=== PATIENT | male | born 1955 | race American Indian/Alaskan Native ===

== ENCOUNTER 2016-02-16 08:27 | Outpatient (CLI) | payer MEDICARE ==
[2016-02-16] MEDS ORDERED: XYLOCAINE TOPICAL 4% TP ONE ×2 (09:22→10:47)
== END 2016-02-16 08:28 | disposition home or self-care (01) ==
LOC: WOUND 08:27
PROVIDERS: ATTEND Podiatrist
DX: I70.243 Atherosclerosis of native arteries of left leg with ulceration of ankle (principal); L97.321 Non-pressure chronic ulcer of left ankle limited to breakdown of skin; I10 Essential (primary) hypertension; N18.6 End stage renal disease; E11.9 Type 2 diabetes mellitus without complications; E78.5 Hyperlipidemia, unspecified; E11.51 Type 2 diabetes mellitus with diabetic peripheral angiopathy without gangrene; M19.90 Unspecified osteoarthritis, unspecified site; Z87.891 Personal history of nicotine dependence
CPT/HCPCS: 11042; G0463

== ENCOUNTER 2016-02-19 12:41 | Outpatient (CLI) | payer MEDICARE ==
--- NOTE | 2016-02-19 13:39 | XRay Report ---
Left foot 3 views. Findings: There are no fractures or other acute findings. Extensive vascular ossifications are noted. Impression: No acute findings.
--- NOTE | 2016-02-19 15:26 | XRay Report ---
LEFT CALCANEUS, 2 VIEWS: HISTORY: Left foot pain. FINDINGS: Bone mineralization is within normal limits. No calcaneal fracture, bony destruction or bone lesion is appreciated. A moderate plantar spur is identified. Vascular calcifications are noted consistent with diabetes or peripheral vascular disease. IMPRESSION: Plantar spur.
== END 2016-02-19 12:42 | disposition home or self-care (01) ==
LOC: XRAY 12:41
PROVIDERS: ATTEND Internal Medicine
DX: M79.672 Pain in left foot (principal); M79.671 Pain in right foot

== ENCOUNTER 2016-02-27 13:00 | Outpatient (CLI) | payer MEDICARE | END 2016-02-27 13:01 | disposition home or self-care (01) | LOC: XRAY 13:00 | PROVIDERS: ATTEND Internal Medicine | DX: I50.9 Heart failure, unspecified (principal); R06.02 Shortness of breath | CPT/HCPCS: 71020 ==

== ENCOUNTER 2016-03-01 08:16 | Outpatient (CLI) | payer MEDICARE ==
[2016-03-01] MEDS ORDERED: XYLOCAINE TOPICAL 2% ONE (08:30)
[2016-03-01] MEDS ORDERED: XYLOCAINE TOPICAL 2% TP ONE (08:52)
== END 2016-03-01 08:17 | disposition home or self-care (01) ==
LOC: WOUND 08:16
PROVIDERS: ATTEND Podiatrist
DX: E11.621 Type 2 diabetes mellitus with foot ulcer (principal); L97.522 Non-pressure chronic ulcer of other part of left foot with fat layer exposed; L97.322 Non-pressure chronic ulcer of left ankle with fat layer exposed; L97.422 Non-pressure chronic ulcer of left heel and midfoot with fat layer exposed; L97.922 Non-pressure chronic ulcer of unspecified part of left lower leg with fat layer exposed; I70.243 Atherosclerosis of native arteries of left leg with ulceration of ankle; E10.52 Type 1 diabetes mellitus with diabetic peripheral angiopathy with gangrene; N18.6 End stage renal disease; I10 Essential (primary) hypertension; E78.5 Hyperlipidemia, unspecified; Z87.891 Personal history of nicotine dependence

== ENCOUNTER 2016-03-13 13:51 | Outpatient (CLI) | payer MEDICARE | END 2016-03-13 13:52 | disposition home or self-care (01) | LOC: WOUND 13:51 | PROVIDERS: ATTEND Internal Medicine | DX: E11.621 Type 2 diabetes mellitus with foot ulcer (principal); L97.521 Non-pressure chronic ulcer of other part of left foot limited to breakdown of skin; L97.421 Non-pressure chronic ulcer of left heel and midfoot limited to breakdown of skin; E11.622 Type 2 diabetes mellitus with other skin ulcer; L97.321 Non-pressure chronic ulcer of left ankle limited to breakdown of skin; L97.821 Non-pressure chronic ulcer of other part of left lower leg limited to breakdown of skin; I70.243 Atherosclerosis of native arteries of left leg with ulceration of ankle; E11.40 Type 2 diabetes mellitus with diabetic neuropathy, unspecified; L03.116 Cellulitis of left lower limb; E11.52 Type 2 diabetes mellitus with diabetic peripheral angiopathy with gangrene; E11.22 Type 2 diabetes mellitus with diabetic chronic kidney disease; I12.0 Hypertensive chronic kidney disease with stage 5 chronic kidney disease or end stage renal disease; N18.6 End stage renal disease; E78.2 Mixed hyperlipidemia; Z87.891 Personal history of nicotine dependence | CPT/HCPCS: 82962; G0277; 99183 ==

== ENCOUNTER 2016-03-14 12:59 | Outpatient (CLI) | payer MEDICARE | END 2016-03-14 13:00 | disposition home or self-care (01) | LOC: WOUND 12:59 | PROVIDERS: ATTEND Internal Medicine | DX: E11.621 Type 2 diabetes mellitus with foot ulcer (principal); L97.521 Non-pressure chronic ulcer of other part of left foot limited to breakdown of skin; L97.421 Non-pressure chronic ulcer of left heel and midfoot limited to breakdown of skin; E11.622 Type 2 diabetes mellitus with other skin ulcer; L97.321 Non-pressure chronic ulcer of left ankle limited to breakdown of skin; L97.821 Non-pressure chronic ulcer of other part of left lower leg limited to breakdown of skin; E11.40 Type 2 diabetes mellitus with diabetic neuropathy, unspecified; E11.52 Type 2 diabetes mellitus with diabetic peripheral angiopathy with gangrene; L03.116 Cellulitis of left lower limb; E11.22 Type 2 diabetes mellitus with diabetic chronic kidney disease; I12.0 Hypertensive chronic kidney disease with stage 5 chronic kidney disease or end stage renal disease; N18.6 End stage renal disease; E78.5 Hyperlipidemia, unspecified; I73.9 Peripheral vascular disease, unspecified; Z87.891 Personal history of nicotine dependence | CPT/HCPCS: 82962; G0277; 99183 ==

== ENCOUNTER 2016-03-15 12:57 | Outpatient (CLI) | payer MEDICARE | END 2016-03-15 12:58 | disposition home or self-care (01) | LOC: WOUND 12:57 | PROVIDERS: ATTEND Podiatrist | DX: E11.621 Type 2 diabetes mellitus with foot ulcer (principal); L97.321 Non-pressure chronic ulcer of left ankle limited to breakdown of skin; L97.421 Non-pressure chronic ulcer of left heel and midfoot limited to breakdown of skin; L97.821 Non-pressure chronic ulcer of other part of left lower leg limited to breakdown of skin; L97.521 Non-pressure chronic ulcer of other part of left foot limited to breakdown of skin; I70.243 Atherosclerosis of native arteries of left leg with ulceration of ankle; E11.40 Type 2 diabetes mellitus with diabetic neuropathy, unspecified; E11.52 Type 2 diabetes mellitus with diabetic peripheral angiopathy with gangrene; L03.116 Cellulitis of left lower limb; E11.22 Type 2 diabetes mellitus with diabetic chronic kidney disease; I12.0 Hypertensive chronic kidney disease with stage 5 chronic kidney disease or end stage renal disease; N18.6 End stage renal disease; E78.5 Hyperlipidemia, unspecified; Z87.891 Personal history of nicotine dependence | CPT/HCPCS: G0277 ×2; 82962; 99183 ==

== ENCOUNTER 2016-03-19 12:31 | Outpatient (CLI) | payer MEDICARE | END 2016-03-19 12:32 | disposition home or self-care (01) | LOC: WOUND 12:31 | PROVIDERS: ATTEND Internal Medicine | DX: E11.621 Type 2 diabetes mellitus with foot ulcer (principal); L97.422 Non-pressure chronic ulcer of left heel and midfoot with fat layer exposed; L97.822 Non-pressure chronic ulcer of other part of left lower leg with fat layer exposed; L97.523 Non-pressure chronic ulcer of other part of left foot with necrosis of muscle; I70.243 Atherosclerosis of native arteries of left leg with ulceration of ankle; L97.322 Non-pressure chronic ulcer of left ankle with fat layer exposed; E11.51 Type 2 diabetes mellitus with diabetic peripheral angiopathy without gangrene; E11.22 Type 2 diabetes mellitus with diabetic chronic kidney disease; I12.0 Hypertensive chronic kidney disease with stage 5 chronic kidney disease or end stage renal disease; N18.6 End stage renal disease; E78.5 Hyperlipidemia, unspecified; Z87.891 Personal history of nicotine dependence; Z89.511 Acquired absence of right leg below knee | CPT/HCPCS: G0277 ×2; 82962; 99183 ==

== ENCOUNTER 2016-03-20 12:54 | Outpatient (CLI) | payer MEDICARE | END 2016-03-20 12:55 | disposition home or self-care (01) | LOC: WOUND 12:54 | PROVIDERS: ATTEND Internal Medicine | DX: I70.243 Atherosclerosis of native arteries of left leg with ulceration of ankle (principal); E11.621 Type 2 diabetes mellitus with foot ulcer; L97.322 Non-pressure chronic ulcer of left ankle with fat layer exposed; L97.422 Non-pressure chronic ulcer of left heel and midfoot with fat layer exposed; L97.922 Non-pressure chronic ulcer of unspecified part of left lower leg with fat layer exposed; L97.523 Non-pressure chronic ulcer of other part of left foot with necrosis of muscle; L97.522 Non-pressure chronic ulcer of other part of left foot with fat layer exposed; E11.52 Type 2 diabetes mellitus with diabetic peripheral angiopathy with gangrene; E11.40 Type 2 diabetes mellitus with diabetic neuropathy, unspecified; E11.22 Type 2 diabetes mellitus with diabetic chronic kidney disease; I12.0 Hypertensive chronic kidney disease with stage 5 chronic kidney disease or end stage renal disease; N18.6 End stage renal disease; E78.5 Hyperlipidemia, unspecified; Z87.891 Personal history of nicotine dependence; Z89.511 Acquired absence of right leg below knee | CPT/HCPCS: 82962; G0277; 99183 ==

== ENCOUNTER 2016-03-21 13:16 | Outpatient (CLI) | payer MEDICARE | END 2016-03-21 13:17 | disposition home or self-care (01) | LOC: WOUND 13:16 | PROVIDERS: ATTEND Internal Medicine | DX: E11.621 Type 2 diabetes mellitus with foot ulcer (principal); I70.243 Atherosclerosis of native arteries of left leg with ulceration of ankle; L97.322 Non-pressure chronic ulcer of left ankle with fat layer exposed; L97.822 Non-pressure chronic ulcer of other part of left lower leg with fat layer exposed; L97.422 Non-pressure chronic ulcer of left heel and midfoot with fat layer exposed; L97.523 Non-pressure chronic ulcer of other part of left foot with necrosis of muscle; L97.522 Non-pressure chronic ulcer of other part of left foot with fat layer exposed; E11.52 Type 2 diabetes mellitus with diabetic peripheral angiopathy with gangrene; E78.5 Hyperlipidemia, unspecified; E11.40 Type 2 diabetes mellitus with diabetic neuropathy, unspecified; E11.22 Type 2 diabetes mellitus with diabetic chronic kidney disease; I12.0 Hypertensive chronic kidney disease with stage 5 chronic kidney disease or end stage renal disease; N18.6 End stage renal disease; Z99.2 Dependence on renal dialysis; M19.90 Unspecified osteoarthritis, unspecified site; Z89.511 Acquired absence of right leg below knee; Z87.891 Personal history of nicotine dependence | CPT/HCPCS: 82962; G0277; 99183 ==

== ENCOUNTER 2016-03-22 11:13 | Outpatient (CLI) | payer MEDICARE ==
[2016-03-22] MEDS ORDERED: XYLOCAINE TOPICAL 4% TP ONE (11:25)
[2016-03-22] MEDS ORDERED: SANTYL TP ONE (12:54)
== END 2016-03-22 11:14 | disposition home or self-care (01) ==
LOC: WOUND 11:13
PROVIDERS: ATTEND Podiatrist
DX: E11.621 Type 2 diabetes mellitus with foot ulcer (principal); L97.421 Non-pressure chronic ulcer of left heel and midfoot limited to breakdown of skin; L97.521 Non-pressure chronic ulcer of other part of left foot limited to breakdown of skin; E11.622 Type 2 diabetes mellitus with other skin ulcer; L97.321 Non-pressure chronic ulcer of left ankle limited to breakdown of skin; L03.116 Cellulitis of left lower limb; I70.243 Atherosclerosis of native arteries of left leg with ulceration of ankle; E11.22 Type 2 diabetes mellitus with diabetic chronic kidney disease; I12.0 Hypertensive chronic kidney disease with stage 5 chronic kidney disease or end stage renal disease; N18.6 End stage renal disease; E78.2 Mixed hyperlipidemia; I73.9 Peripheral vascular disease, unspecified; E11.42 Type 2 diabetes mellitus with diabetic polyneuropathy; M19.90 Unspecified osteoarthritis, unspecified site; Z87.891 Personal history of nicotine dependence
CPT/HCPCS: 11042; G0277; 99183

== ENCOUNTER 2016-03-25 13:16 | Outpatient (CLI) | payer MEDICARE | END 2016-03-25 13:17 | disposition home or self-care (01) | LOC: WOUND 13:16 | PROVIDERS: ATTEND Internal Medicine | DX: E11.621 Type 2 diabetes mellitus with foot ulcer (principal); L97.322 Non-pressure chronic ulcer of left ankle with fat layer exposed; L97.422 Non-pressure chronic ulcer of left heel and midfoot with fat layer exposed; I70.243 Atherosclerosis of native arteries of left leg with ulceration of ankle; L97.922 Non-pressure chronic ulcer of unspecified part of left lower leg with fat layer exposed; L97.523 Non-pressure chronic ulcer of other part of left foot with necrosis of muscle; L97.522 Non-pressure chronic ulcer of other part of left foot with fat layer exposed; E11.40 Type 2 diabetes mellitus with diabetic neuropathy, unspecified; E11.51 Type 2 diabetes mellitus with diabetic peripheral angiopathy without gangrene; E11.22 Type 2 diabetes mellitus with diabetic chronic kidney disease; I12.0 Hypertensive chronic kidney disease with stage 5 chronic kidney disease or end stage renal disease; N18.6 End stage renal disease; Z99.2 Dependence on renal dialysis; E78.5 Hyperlipidemia, unspecified; M19.90 Unspecified osteoarthritis, unspecified site; Z87.891 Personal history of nicotine dependence | CPT/HCPCS: 82962; G0277; 99183 ==

== ENCOUNTER 2016-03-26 12:40 | Outpatient (CLI) | payer MEDICARE | END 2016-03-26 12:41 | disposition home or self-care (01) | LOC: WOUND 12:40 | PROVIDERS: ATTEND Podiatrist | DX: E11.621 Type 2 diabetes mellitus with foot ulcer (principal); L97.521 Non-pressure chronic ulcer of other part of left foot limited to breakdown of skin; L97.421 Non-pressure chronic ulcer of left heel and midfoot limited to breakdown of skin; E11.622 Type 2 diabetes mellitus with other skin ulcer; L97.821 Non-pressure chronic ulcer of other part of left lower leg limited to breakdown of skin; I70.243 Atherosclerosis of native arteries of left leg with ulceration of ankle; L03.116 Cellulitis of left lower limb; E11.22 Type 2 diabetes mellitus with diabetic chronic kidney disease; I12.0 Hypertensive chronic kidney disease with stage 5 chronic kidney disease or end stage renal disease; N18.6 End stage renal disease; E78.2 Mixed hyperlipidemia; I73.9 Peripheral vascular disease, unspecified; E11.40 Type 2 diabetes mellitus with diabetic neuropathy, unspecified; M19.90 Unspecified osteoarthritis, unspecified site; Z87.891 Personal history of nicotine dependence | CPT/HCPCS: 82962; G0277; G0463; 99183; 99213 ==

== ENCOUNTER 2016-03-27 13:07 | Outpatient (CLI) | payer MEDICARE | END 2016-03-27 13:08 | disposition home or self-care (01) | LOC: WOUND 13:07 | PROVIDERS: ATTEND Internal Medicine | DX: E11.621 Type 2 diabetes mellitus with foot ulcer (principal); I70.243 Atherosclerosis of native arteries of left leg with ulceration of ankle; L97.322 Non-pressure chronic ulcer of left ankle with fat layer exposed; L97.422 Non-pressure chronic ulcer of left heel and midfoot with fat layer exposed; L97.523 Non-pressure chronic ulcer of other part of left foot with necrosis of muscle; L97.522 Non-pressure chronic ulcer of other part of left foot with fat layer exposed; L97.822 Non-pressure chronic ulcer of other part of left lower leg with fat layer exposed; E11.40 Type 2 diabetes mellitus with diabetic neuropathy, unspecified; E11.52 Type 2 diabetes mellitus with diabetic peripheral angiopathy with gangrene; E11.22 Type 2 diabetes mellitus with diabetic chronic kidney disease; I12.0 Hypertensive chronic kidney disease with stage 5 chronic kidney disease or end stage renal disease; N18.6 End stage renal disease; E78.5 Hyperlipidemia, unspecified; E11.51 Type 2 diabetes mellitus with diabetic peripheral angiopathy without gangrene; M19.90 Unspecified osteoarthritis, unspecified site; Z89.511 Acquired absence of right leg below knee; Z99.2 Dependence on renal dialysis; Z87.891 Personal history of nicotine dependence | CPT/HCPCS: G0277 ×2; 82962; 99183 ==

== ENCOUNTER 2016-03-28 12:30 | Outpatient (CLI) | payer MEDICARE | END 2016-03-28 12:31 | disposition home or self-care (01) | LOC: WOUND 12:30 | PROVIDERS: ATTEND Nurse Practitioner | DX: E11.621 Type 2 diabetes mellitus with foot ulcer (principal); L97.422 Non-pressure chronic ulcer of left heel and midfoot with fat layer exposed; L97.822 Non-pressure chronic ulcer of other part of left lower leg with fat layer exposed; L97.523 Non-pressure chronic ulcer of other part of left foot with necrosis of muscle; L97.522 Non-pressure chronic ulcer of other part of left foot with fat layer exposed; I70.243 Atherosclerosis of native arteries of left leg with ulceration of ankle; L97.322 Non-pressure chronic ulcer of left ankle with fat layer exposed; E11.22 Type 2 diabetes mellitus with diabetic chronic kidney disease; I12.0 Hypertensive chronic kidney disease with stage 5 chronic kidney disease or end stage renal disease; N18.6 End stage renal disease; E78.5 Hyperlipidemia, unspecified; E11.51 Type 2 diabetes mellitus with diabetic peripheral angiopathy without gangrene; E11.40 Type 2 diabetes mellitus with diabetic neuropathy, unspecified; M19.90 Unspecified osteoarthritis, unspecified site; Z87.891 Personal history of nicotine dependence; Z89.511 Acquired absence of right leg below knee | CPT/HCPCS: 82962; G0277; 99183 ==

== ENCOUNTER 2016-03-29 11:32 | Outpatient (CLI) | payer MEDICARE ==
[2016-03-29] MEDS ORDERED: SANTYL TP ONE ×2 (12:52→15:00)
[2016-03-29] MEDS ORDERED: XYLOCAINE TOPICAL 4% TP ONE (14:56)
== END 2016-03-29 11:33 | disposition home or self-care (01) ==
LOC: WOUND 11:32
PROVIDERS: ATTEND Podiatrist
DX: E11.621 Type 2 diabetes mellitus with foot ulcer (principal); L97.521 Non-pressure chronic ulcer of other part of left foot limited to breakdown of skin; E11.622 Type 2 diabetes mellitus with other skin ulcer; L97.321 Non-pressure chronic ulcer of left ankle limited to breakdown of skin; L97.421 Non-pressure chronic ulcer of left heel and midfoot limited to breakdown of skin; L97.821 Non-pressure chronic ulcer of other part of left lower leg limited to breakdown of skin; I70.243 Atherosclerosis of native arteries of left leg with ulceration of ankle; L03.116 Cellulitis of left lower limb; E11.22 Type 2 diabetes mellitus with diabetic chronic kidney disease; I12.0 Hypertensive chronic kidney disease with stage 5 chronic kidney disease or end stage renal disease; N18.6 End stage renal disease; E78.2 Mixed hyperlipidemia; I73.9 Peripheral vascular disease, unspecified; M19.90 Unspecified osteoarthritis, unspecified site; E11.40 Type 2 diabetes mellitus with diabetic neuropathy, unspecified; Z87.891 Personal history of nicotine dependence
CPT/HCPCS: 11042; 11045; 82962; G0277; 99183

== ENCOUNTER 2016-04-01 14:35 | Outpatient (CLI) | payer MEDICARE | END 2016-04-01 14:36 | disposition home or self-care (01) | LOC: WOUND 14:35 | PROVIDERS: ATTEND Internal Medicine | DX: E11.621 Type 2 diabetes mellitus with foot ulcer (principal); L97.521 Non-pressure chronic ulcer of other part of left foot limited to breakdown of skin; L97.421 Non-pressure chronic ulcer of left heel and midfoot limited to breakdown of skin; E11.622 Type 2 diabetes mellitus with other skin ulcer; L97.321 Non-pressure chronic ulcer of left ankle limited to breakdown of skin; L97.821 Non-pressure chronic ulcer of other part of left lower leg limited to breakdown of skin; I70.243 Atherosclerosis of native arteries of left leg with ulceration of ankle; L03.116 Cellulitis of left lower limb; E11.22 Type 2 diabetes mellitus with diabetic chronic kidney disease; I12.0 Hypertensive chronic kidney disease with stage 5 chronic kidney disease or end stage renal disease; N18.6 End stage renal disease; E78.2 Mixed hyperlipidemia; I73.9 Peripheral vascular disease, unspecified; M19.90 Unspecified osteoarthritis, unspecified site; E11.40 Type 2 diabetes mellitus with diabetic neuropathy, unspecified; Z87.891 Personal history of nicotine dependence | CPT/HCPCS: 82962; G0277; 99183 ==

== ENCOUNTER 2016-04-02 12:53 | Outpatient (CLI) | payer MEDICARE ==
[2016-04-02] MEDS ORDERED: SANTYL TP ONE (15:02)
[2016-04-02] MEDS ORDERED: SANTYL TP SCH (16:00)
== END 2016-04-02 12:54 | disposition home or self-care (01) ==
LOC: WOUND 12:53
PROVIDERS: ATTEND Podiatrist
DX: E11.621 Type 2 diabetes mellitus with foot ulcer (principal); L97.322 Non-pressure chronic ulcer of left ankle with fat layer exposed; L97.422 Non-pressure chronic ulcer of left heel and midfoot with fat layer exposed; L97.523 Non-pressure chronic ulcer of other part of left foot with necrosis of muscle; E11.40 Type 2 diabetes mellitus with diabetic neuropathy, unspecified; E11.52 Type 2 diabetes mellitus with diabetic peripheral angiopathy with gangrene; L97.822 Non-pressure chronic ulcer of other part of left lower leg with fat layer exposed; I70.243 Atherosclerosis of native arteries of left leg with ulceration of ankle; E11.22 Type 2 diabetes mellitus with diabetic chronic kidney disease; I12.0 Hypertensive chronic kidney disease with stage 5 chronic kidney disease or end stage renal disease; N18.6 End stage renal disease; E78.5 Hyperlipidemia, unspecified; E11.51 Type 2 diabetes mellitus with diabetic peripheral angiopathy without gangrene; M19.90 Unspecified osteoarthritis, unspecified site; Z87.891 Personal history of nicotine dependence; Z89.511 Acquired absence of right leg below knee; Z99.2 Dependence on renal dialysis
CPT/HCPCS: 82962; G0277; G0463; 99183; 99212

== ENCOUNTER 2016-04-15 19:39 | Inpatient (IN) | payer MEDICARE ==
[2016-04-15] MEDS ORDERED: D50W (25GM) IV PRN (20:08)
[2016-04-15] MEDS ORDERED: SENOKOT PO PRN (20:08)
[2016-04-15] MEDS: ROXICODONE PO SCH (21:03)
[2016-04-15] MEDS: ALDACTONE PO SCH (21:09)
[2016-04-15] MEDS: CATAPRES PO SCH (21:10)
[2016-04-15] MEDS: NOVOLOG SUB-Q SCH (23:05)
[2016-04-15] MEDS: APRESOLINE PO SCH (23:53)
[2016-04-15] MEDS: COREG PO SCH (23:54)
[2016-04-16 05:18] LABS: Basophils % (Auto) 0.9 % (0.0-1.8); Eosinophils % (Auto) 2.3 % (0.0-4.3); Hematocrit 25.9 % (35.5-45.6); Hemoglobin 8.2 gm/dl (11.8-15.2); Mean Corpuscular HGB Conc 32 % (32-34); Mean Corpuscular Hemoglobin 28 pg (28-32); Mean Corpuscular Volume 88 fl (84-94); Platelet Count 359 K/mm3 (140-440); Red Blood Count 2.93 M/mm3 (3.65-5.03); White Blood Count 16.3 K/mm3 (4.5-11.0)
[2016-04-16 05:20] LABS: Red Cell Distribution Width 23.5 % (13.2-15.2)
[2016-04-16 05:43] LABS: Albumin 3.2 g/dL (3.9-5); Albumin/Globulin Ratio 0.9 %; Alkaline Phosphatase 51 units/L (35-129); Anion Gap 24 mmol/L; BUN/Creatinine Ratio 7.53; Bilirubin,Total 0.2 mg/dL (0.1-1.2); Blood Urea Nitrogen 61 mg/dL (9-20); Calcium 10.7 mg/dL (8.4-10.2); Carbon Dioxide 22 mmol/L (22-30); Chloride 94.5 mmol/L (98-107); Glucose 106 mg/dL (75-100); Potassium 4.7 mmol/L (3.6-5.0); Sodium 136 mmol/L (137-145); Total Protein 6.9 g/dL (6.3-8.2)
[2016-04-16 05:52] LABS: Alanine Aminotransferase < 5 units/L (7-56)
[2016-04-16] MEDS ORDERED: SENSIPAR PO SCH ×2 (08:00→10:56)
[2016-04-16] MEDS: CATAPRES PO SCH ×2 (08:20→23:41)
[2016-04-16] MEDS: APRESOLINE PO SCH ×2 (08:20→23:41)
[2016-04-16] MEDS: COREG PO SCH ×2 (08:21→23:41)
[2016-04-16] MEDS: ALDACTONE PO SCH ×2 (08:21→23:40)
[2016-04-16] MEDS: ROXICODONE PO SCH (09:25)
[2016-04-16] MEDS: TYLENOL PO PRN ×2 (09:26→20:40)
--- NOTE | 2016-04-16 09:43 | Progress Note ---
Assessment and Plan 1. DM: Continue with insulin therapy, Consistent 2000 ADA diet 2. Left BKA; POD # 2: Doing well with occasional phantom pain. Prior left BKA. continue with PT/OT 3. ESRD on HD on T, , and Fri. Nephrology following 4. PAV: 5. DVT ppx with lovenox and GI with pepcid Subjective Date of service: 04/16/16 Principal diagnosis: DM, Left BKA Interval history: NO new complaint Objective - Constitutional Vitals: Vital Signs - 12hr 04/15/16 04/16/16 04/16/16 23:54 00:00 08:20 Pulse Rate 90 112 H Pulse Rate [ 90 Left Brachial] Blood Pressure 140/74 116/74 Blood Pressure 140/74 [Left Arm] 04/16/16 08:21 Pulse Rate 112 H Pulse Rate [ Left Brachial] Blood Pressure 116/74 Blood Pressure [Left Arm] General appearance: Present: no acute distress, well-nourished - EENT Eyes: PERRL, EOM intact ENT: hearing intact, clear oral mucosa Ears: bilateral: normal - Neck Neck: supple, normal ROM - Respiratory Respiratory effort: normal Respiratory: bilateral: CTA - Breasts Breasts: normal - Cardiovascular Rhythm: regular Heart Sounds: Present: S1 & S2. Absent: gallop, rub Extremities: pulses intact, No edema Extremity abnormal: other (recent right BKA and prior right BKA) - Gastrointestinal General gastrointestinal: Present: soft, non-tender, non-distended, normal bowel sounds - Genitourinary Male genitourinary: normal - Integumentary Integumentary: clear, warm, dry - Musculoskeletal Musculoskeletal: 1, strength equal bilaterally - Neurologic Neurologic: moves all extremities - Psychiatric Psychiatric: memory intact, appropriate mood/affect, intact judgment & insight - Labs CBC & Chem 7: 04/16/16 04:48 04/16/16 04:48 Labs: Abnormal lab results 04/15/16 04/16/16 04/16/16 Range/Units 22:22 04:48 04:48 WBC 16.3 H (4.5-11.0) K/mm3 RBC 2.93 L (3.65-5.03) M/mm3 Hgb 8.2 L (11.8-15.2) gm/dl Hct 25.9 L (35.5-45.6) % RDW 23.5 H (13.2-15.2) % Lymph % (Auto) 9.5 L (13.4-35.0) % Victoria % (Auto) 15.7 H (0.0-7.3) % Victoria # 2.6 H (0.0-0.8) K/mm3 Seg Neutrophils % 71.6 H (40.0-70.0) % Seg Neutrophils # 11.6 H (1.8-7.7) K/mm3 Chloride 94.5 L (98-107) mmol/L BUN 61 H (9-20) mg/dL Creatinine 8.1 H (0.8-1.5) mg/dL Glucose 106 H (75-100) mg/dL POC Glucose 115 H (70-105) Calcium 10.7 H (8.4-10.2) mg/dL ALT < 5 L (7-56) units/L Albumin 3.2 L (3.9-5) g/dL
--- NOTE | 2016-04-16 10:04 | History and Physical Report ---
History of Present Illness Date: 04/16/16 Referring Facility: [facility] Date of admission: 04/15/16 19:39 Chief Complaint: left BKA History of present illness: POST ADMISSION PHYSICIAN EVALUATION ONSET DATE: 04/12/2016 IMPAIRMENT GROUP CODE: 05.4 ETIOLOGIC DIAGNOSIS: left BKA secondary to atherosclerotic PVD with gangrene STATUS CHANGES SINCE PREADMISSION SCREENING: PAS has been reviewed. In comparison, leukocytosis (14.9-->16.3) and acute on chronic anemia (8.8/27.7--> 8.2/25.9) slightly worsened; INR improving (3.89-->3.30). Pain controlled on current regimen. Pt able to participate in therapies on today, however, remains with functional deficits. Pt remains an appropriate candidate for IRU admission. PREVIOUS FUNCTIONAL STATUS: Independent with ADLs and transfers; Rosa for gait CURRENT FUNCTIONAL STATUS: per PAS, SBA/CARDONA-Nicolle for ADLs; modA for transfers; therapy evaluations pending for this AM HPI 60 y.o. male with previous right BKA, admitted to [facility] for left BKA due to PVD with LLE gangrene. Pt reports nonhealing diabetic foot ulcers; failed revascularizations, hyperbarics, outpt wound care. Post-op course notable for supratherapeutic INR, acute on chronic anemia, leukocytosis. Pt noted to have new functional deficits as he is now a bilateral amputee. Pt is now admitted for aggressive therapies and ongoing medical management. Past History Past Medical History: diabetes (retinopathy and peripheral neuropathy), ESRD ( converted from PD to HD), hypertension, hyperlipidemia, PVD Past Surgical History: arthroscopy (left knee), Other (multiple resvascularization procedures; now bilateral below knee amputations; PD catheter placement) Social history: lives with family (girlfriend). denies: smoking, alcohol abuse Family history: CAD, cancer (breast), diabetes, hypertension Medications and Allergies Allergies Allergy/AdvReac Type Severity Reaction Status Date / Time No Known Allergies Allergy Unverified 11/05/12 18:40 Home Medications Medication Instructions Recorded Confirmed Last Taken Type Cinacalcet [Sensipar] 30 mg PO QDAY #30 tablet 10/24/15 04/12/16 04/11/16 Rx Sevelamer Carbonate [Renvela] 800 mg PO TIDWM #90 tablet 10/24/15 04/12/1604/11 Rx Warfarin [Coumadin] 3 mg PO DAILY@1700 #30 tablet 10/24/15 04/12/16 04/09/16 Rx hydrALAZINE [Apresoline TAB] 100 mg PO BID #60 tab 10/24/15 04/12/16 04/11/16 23 :55 Rx oxyCODONE [Roxicodone TAB] 5 mg PO Q6H PRN #60 tablet 11/23/15 04/12/16 Rx Insulin NPH/Regular [NovoLIN 70/30] 10 unit SUB-Q QAM@1000 units 01/10/1604/1204/11/16 08:00 Rx Insulin NPH/Regular [NovoLIN 70/30] 10 unit SUB-Q QPMDIAB units 01/10/1604/11/16 23:45 Rx 5 UNITS Carvedilol [Coreg] 25 mg PO BID 04/10/16 04/12/16 04/11/16 23:55 History Spironolactone 50 mg PO BID 04/12/16 04/12/16 04/11/16 History cloNIDine [Catapres] 0.1 mg PO BID 04/12/16 04/12/16 04/11/16 23:55 History Active Meds: Active Medications Acetaminophen (Tylenol) 650 mg PO Q4H PRN PRN Reason: Pain MILD(1-3)/Fever >100.5/PAZ Last Admin: 04/16/16 09:26 Dose: 650 mg Carvedilol (Coreg) 25 mg PO BID [facility] Last Admin: 04/16/16 08:21 Dose: Not Given Cinacalcet (Sensipar) 30 mg PO QDAY [facility] Clonidine HCl (Catapres) 0.1 mg PO BID [facility] Last Admin: 04/16/16 08:20 Dose: Not Given Dextrose (D50w (25gm)) 50 ml IV PRN PRN PRN Reason: Hypoglycemia Hydralazine HCl (Apresoline) 100 mg PO BID [facility] Last Admin: 04/16/16 08:20 Dose: Not Given Insulin Aspart (Novolog) 0 units SUB-Q ACHS [facility] PRN Reason: Protocol Last Admin: 04/15/16 23:05 Dose: Not Given Insulin Human Isoph/Insulin Regular (Novolin 70/30) 10 unit SUB-Q QAM@1000 [facility] Insulin Human Isoph/Insulin Regular (Novolin 70/30) 10 unit SUB-Q QPMDIAB [facility] Oxycodone HCl (Roxicodone) 10 mg PO BID [facility] Last Admin: 04/16/16 09:25 Dose: 10 mg Senna (Senokot) 8.6 mg PO Q12H PRN PRN Reason: Laxative Effect Sevelamer Carbonate (Renvela) 800 mg PO TIDWM [facility] Spironolactone (Aldactone) 50 mg PO BID [facility] Last Admin: 04/16/16 08:21 Dose: Not Given Review of Systems All systems: negative Ears, nose, mouth and throat: no headache Cardiovascular: no chest pain Respiratory: no cough Gastrointestinal: no nausea, no vomiting, no constipation Neurological: other (post-op pain at left residual limb) Exam - Constitutional Vitals: Vital Signs - 12hr 04/15/16 04/16/16 04/16/16 23:54 00:00 08:20 Pulse Rate 90 112 H Pulse Rate [ 90 Left Brachial] Blood Pressure 140/74 116/74 Blood Pressure 140/74 [Left Arm] 04/16/16 08:21 Pulse Rate 112 H Pulse Rate [ Left Brachial] Blood Pressure 116/74 Blood Pressure [Left Arm] General appearance: no acute distress, other (sitting up in WC) - EENT Eyes: EOM intact ENT: hearing intact - Neck Neck: supple, normal ROM - Respiratory Respiratory effort: normal Respiratory: bilateral: CTA - Cardiovascular Rhythm: irregularly irregular - Extremities Extremity abnormal: other (MAGNOLIA and knee immobilizer to LLE) - Gastrointestinal General gastrointestinal: Present: soft, non-tender, non-distended, normal bowel sounds - Musculoskeletal Musculoskeletal: left sided weakness (limited hip flexion due to pain) - Neurologic Neurologic: CNII-XII intact - Psychiatric Psychiatric: intact judgment & insight, memory intact, cooperative (flat affect) - Allied health notes FIMS assesment as documented by PT/OT/ST: Social interaction/Memory/Problem solving Social Interaction FIM Score 7. Complete Mellette (Interacts appropriately. Controls temper.) Memory FIM Score 7. Complete [place] (Remembers people and routines.) Problem Solving FIM Score 7. Complete [place] (Solves complex problems. Self corrects.) Eating Eating FIM Score 7. Complete [place] (Cuts meat, opens containers, regular diet.) - Labs CBC & Chem 7: 04/16/16 04:48 04/16/16 04:48 Labs: Laboratory Results - last 72 hr 04/15/16 04/16/16 04/16/16 22:22 04:48 04:48 WBC 16.3 H RBC 2.93 L Hgb 8.2 L Hct 25.9 L MCV 88 MCH 28 MCHC 32 RDW 23.5 H Plt Count 359 Lymph % (Auto) 9.5 L Wilkes % (Auto) 15.7 H Eos % (Auto) 2.3 Baso % (Auto) 0.9 Lymph # 1.5 Wilkes # 2.6 H Eos # 0.4 Baso # 0.1 Seg Neutrophils % 71.6 H Seg Neutrophils # 11.6 H Chloride 94.5 L Carbon Dioxide 22 Anion Gap 24 BUN 61 H Creatinine 8.1 H Estimated GFR 8 BUN/Creatinine Ratio 7.53 Glucose 106 H POC Glucose 115 H Calcium 10.7 H Total Bilirubin 0.2 AST 24 ALT < 5 L Alkaline Phosphatase 51 Total Protein 6.9 Albumin 3.2 L Albumin/Globulin Ratio 0.9 Assessment and Plan Assessment and plan: 60 y.o. male s/p left BKA, now bilateral amputee as pt has a history of right BKA in September 2015. Post-op course significant for acute on chronic anemia, supratherapeutic INR, and leukocytosis secondary to gangrene. The patient is medically stable, however, requires ongoing medical management. Pt is appropriate for inpatient rehabilitation admission and is thought to be able to tolerate at least 3 hours of therapy a day, 5 days a week including 1.5 hours of physical therapy and 1.5 hours of occupational therapyPatient is able to understand and follow basic directions and has attainable rehab goals. Potential barriers/complications include infection, bleeding, falls, phantom pain, worsening leukocytosis, depression, PE, syncope, hypotension, contracture formation. Plan 1. Rehabilitation- Pt will undergo multidisciplinary/integrative rehab PT/OT, Nursing. Areas to be addressed include, but are not limited to PT for mobility , strengthening, transfer training, ROM, endurance, stairs, balance; OT for ADLs , household tasks, adaptive equipment; Nursing for carryover of therapies, pain control, education, skin integrity, medication management, bowel/bladder management; Nutrition as needed; professional services specialist for discharge planning and equipment needs. Potential interventions include appropriate assistive device or adaptive equipment. Expected overall level of functional improvement by discharge is Rosa to supervision for ADLs and transfers; CGA-Nicolle for short distances using RLE prosthesis; Rosa for wheelchair mobility. Pt will tentatively be discharged home with outpatient PT. Estimated length of stay is 7-10 days. 2. s/p left BKA- pending [place]; pain control; follow wound; follow leukocytosis 3. HTN- discussed regimen with IM; will also discuss with Nephrology due to noted low BP; need to avoid hypotension as pt will be attempting gait training with prosthesis and is at risk for syncope 4. DM- continue on current regimen; follow to avoid hypoglycemia with increased activity levels 5. ESRD- Nephrology consulted; continue on HD 6. Afib- continue to hold coumadin due to supratherapeutic INR - Patient Problems (1) Atherosclerotic peripheral vascular disease with gangrene Onset Date: 09/28/15 Current Visit: Yes Status: Acute (2) Amputation of left lower extremity below knee Current Visit: Yes Status: Acute (3) Supratherapeutic INR Onset Date: 09/23/15 Current Visit: Yes Status: Acute (4) A-fib Onset Date: 09/28/15 Current Visit: Yes Status: Chronic Qualifiers: Atrial fibrillation type: chronic Qualified Code(s): I48.2 - Chronic atrial fibrillation (5) Anemia in chronic kidney disease Current Visit: Yes Status: Chronic (6) Diabetes mellitus with peripheral autonomic neuropathy Onset Date: 09/23/15 Current Visit: Yes Status: Chronic Qualifiers: Diabetes mellitus type: type 2 Diabetes mellitus mcfp insulin use: with mcfp use Qualified Code(s): E11.43 - Type 2 diabetes mellitus with diabetic autonomic (poly)neuropathy; Z79.4 - [facility]CI (current) use of insulin (7) End-stage renal disease Onset Date: 09/23/15 Current Visit: Yes Status: Chronic (8) HTN (hypertension) Current Visit: Yes Status: Chronic Qualifiers: Hypertension type: essential hypertension Qualified Code(s): I10 - Essential (primary) hypertension
--- NOTE | 2016-04-16 10:52 | Progress Note ---
Assessment and Plan - Patient Problems (1) End-stage renal disease Onset Date: 09/23/15 Current Visit: No Status: Chronic Plan to address problem: continue HD on T/T/S schedule. will use 2K and 2Ca bath given hypercalcemia. (2) Atherosclerotic peripheral vascular disease with gangrene Onset Date: 09/28/15 Current Visit: No Status: Acute Plan to address problem: PVD w/ L foot gangrene s/p L BKA, now admitted to acute rehab. (3) HTN (hypertension) Current Visit: No Status: Chronic Qualifiers: Hypertension type: H Plan to address problem: BP well controlled, will monitor on current meds. (4) Secondary hyperparathyroidism (of renal origin) Current Visit: No Status: Chronic Plan to address problem: continue sensipar, renvela. Will increase sensipar to 60mg po qd given persistent hypercalcemia. (5) Anemia in chronic kidney disease Current Visit: No Status: Chronic Plan to address problem: continue EPO with HD Subjective Date of service: 04/16/16 Principal diagnosis: DM, Left BKA Interval history: patient seen and examined during PT, reports improved pain at the surgical site. Objective - Vital Signs Vital signs: Vital Signs - 12hr 04/15/16 04/16/16 04/16/16 23:54 00:00 08:00 Temperature 97.5 F L Pulse Rate 90 Pulse Rate [ 90 112 H Left Brachial] Respiratory 20 Rate Blood Pressure 140/74 Blood Pressure 140/74 116/74 [Left Arm] O2 Sat by Pulse 100 Oximetry 04/16/16 04/16/16 08:20 08:21 Temperature Pulse Rate 112 H 112 H Pulse Rate [ Left Brachial] Respiratory Rate Blood Pressure 116/74 116/74 Blood Pressure [Left Arm] O2 Sat by Pulse Oximetry - General Appearance General appearance: well-developed, well-nourished, appears stated age EENT: ATNC, PERRL, mucous membranes moist Neck: no JVD Respiratory: Present: Clear to Ascultation Cardiology: regular, S1S2 Gastrointestinal: normal, normoactive bowel sounds Integumentary: no rash, other (b/l BKA ) Neurologic: no focal deficit, alert and oriented x3, strength 5/5, CN 3-12 intact Psychiatric: mood/affect appropriate, cooperative - Lab 04/16/16 04:48 04/16/16 04:48 Most recent lab results Calcium 10.7 mg/dL (8.4-10.2) H 04/16/16 04:48
[2016-04-16 10:56] LABS: INR 3.3 (0.87-1.13)
[2016-04-16] MEDS: NOVOLOG SUB-Q SCH ×3 (11:15→18:05)
[2016-04-16] MEDS: RENVELA PO SCH ×3 (11:17→18:04)
[2016-04-16] MEDS ORDERED: COUMADIN NO DOSE TODAY PO ONE (17:00)
[2016-04-16] MEDS: SENSIPAR PO SCH (18:04)
[2016-04-16] MEDS ORDERED: NACL 0.9% 100 ML IV PRN (18:13)
[2016-04-16] MEDS: HEPARIN IV PRN (21:57)
[2016-04-17] MEDS: ROXICODONE PO SCH ×2 (00:08→09:18)
[2016-04-17] MEDS: NOVOLOG SUB-Q SCH ×5 (00:09→22:40)
[2016-04-17 05:40] LABS: INR 2.91 (0.87-1.13)
[2016-04-17] MEDS: CATAPRES PO SCH (08:58)
[2016-04-17] MEDS ORDERED: COREG PO SCH (09:00)
[2016-04-17] MEDS: SENSIPAR PO SCH (09:01)
[2016-04-17] MEDS: ALDACTONE PO SCH ×2 (09:20→22:39)
[2016-04-17] MEDS: RENVELA PO SCH ×3 (09:21→18:08)
[2016-04-17 10:46] LABS: Hematocrit 26.4 % (35.5-45.6); Hemoglobin 8.3 gm/dl (11.8-15.2)
--- NOTE | 2016-04-17 10:47 | Progress Note ---
Assessment and Plan - Patient Problems (1) End-stage renal disease Onset Date: 09/23/15 Current Visit: Yes Status: Chronic Plan to address problem: continue HD on T/T/S schedule. (2) Atherosclerotic peripheral vascular disease with gangrene Onset Date: 09/28/15 Current Visit: Yes Status: Acute Plan to address problem: PVD w/ L foot gangrene s/p L BKA, continue PT/OT (3) HTN (hypertension) Current Visit: Yes Status: Chronic Qualifiers: Hypertension type: essential hypertension Qualified Code(s): I10 - Essential (primary) hypertension Plan to address problem: BP well controlled, will monitor on current meds. (4) Secondary hyperparathyroidism (of renal origin) Current Visit: No Status: Chronic Plan to address problem: continue sensipar, renvela. increased sensipar to 60mg po qd given persistent hypercalcemia. (5) Anemia in chronic kidney disease Current Visit: Yes Status: Chronic Plan to address problem: continue EPO with HD (6) Depression (emotion) Current Visit: Yes Status: Acute Qualifiers: Depression Type: D Major depression recurrence: M Active/Remission status : A Major depression episode severity: M Psychotic features: P Trimester: T Plan to address problem: consider psych consult Subjective Date of service: 04/17/16 Principal diagnosis: DM, Left BKA Interval history: pt is overwhelmed with all the medical conditions/treatments that are going on. depressive moods reported. Objective - Vital Signs Vital signs: Vital Signs - 12hr 04/16/16 04/16/16 04/17/16 23:40 23:41 05:51 Temperature Pulse Rate 116 H 116 H Pulse Rate [ Left Brachial] Pulse Rate [ 116 H Left Radial] Respiratory Rate Blood Pressure 94/72 94/72 Blood Pressure 92/62 [Left Arm] O2 Sat by Pulse Oximetry 04/17/16 04/17/16 08:15 08:58 Temperature 98.7 F Pulse Rate 66 Pulse Rate [ 66 Left Brachial] Pulse Rate [ Left Radial] Respiratory 22 Rate Blood Pressure 106/56 Blood Pressure 106/55 [Left Arm] O2 Sat by Pulse 98 Oximetry - General Appearance General appearance: appears stated age, chronically ill, fatigue EENT: ATNC, PERRL, mucous membranes moist Neck: no JVD Respiratory: Present: Clear to Ascultation Cardiology: regular, S1S2 Gastrointestinal: normal, normoactive bowel sounds Integumentary: no rash, other (b/l BKA) Neurologic: no focal deficit, alert and oriented x3, strength 5/5, CN 3-12 intact Psychiatric: depressed - Lab 04/16/16 04:48 04/16/16 04:48 Most recent lab results Calcium 10.7 mg/dL (8.4-10.2) H 04/16/16 04:48
[2016-04-17] MEDS: TYLENOL PO PRN (11:28)
[2016-04-17] MEDS: APRESOLINE PO SCH ×3 (11:30→22:39)
[2016-04-17] MEDS: COREG PO SCH ×3 (11:30→22:38)
--- NOTE | 2016-04-17 15:44 | IRU Plan of Care ---
Interdisciplinary Plan of Care - [facility] IRU INTERDISCIPLINARY PLAN: [facility] Inpatient Rehab Unit Plan of Care IRU Interdisciplinary Care Plan Start: 04/15/16 20: 20 Freq: Admission then PRN Status: Active Document 04/17/16 10:29 DB (Rec: 04/17/16 10:38 DB [id number]) Interdisciplinary Problem List Interdisciplinary Problem List Interdisciplinary Problem List Impaired Bathing/Grooming Query Text:Answers will Trigger Problems Impaired Dressing and Outcomes on Worklist. Impaired Mobility Impaired Transfers Impaired Toileting Impaired Nutrition Pain Management Knowledge Deficits Impaired Skin/Tissue Integrity Impaired Safety Diabetes Education IRU Interdisciplinary Care Plan Therapy Services Therapy Services Will Include: Physical Therapy Query Text:Patient will be seen for a Occupational Therapy minimum of 3 hours of daily therapy 5 out of 7 days a week. Therapy intensity may be adjusted within a 7 consecutive day period to effectively serve the individual needs of the patient. Treatment Frequency/Intensity/Duration Treatment Frequency 5 days per week Treatment Intensity 1.5 hours per discipline (PT/OT ) daily Treatment Duration 10-14 days Problem Area: Eating/Swallowing Eating/Swallowing Outcomes Eating/Swallowing Interventions Problem Area: Bathing/Grooming Bathing/Grooming Outcomes Improve Perkins w/ Grooming Improve Perkins w/ Bathing Bathing/Grooming Interventions ADL Training Therapeutic Activity Neuromuscular Re-Education Activity Tolerance Work Problem Area: Dressing Dressing Outcomes Improve Perkins w/ UB Dressing Improve Perkins w/ LB Dressing Dressing Interventions ADL Training Neuromuscular Re-Education Therapeutic Exercise Balance Work Patient/Caregiver Education Problem Area: Mobility Mobility Outcomes Improve Perkins w/ Bed Mobility Improve Perkins w/ Wheelchair Mobility Interventions Therapeutic Exercise Activity Tolerance Work Use of Assistive Devices Patient/Caregiver Education Bed Mobility Work Gait Training W/C Mobility Work Problem Area: Transfers Transfers Outcomes Improve Perkins w/ Bed Transfers Improve Perkins w/ Toilet Transfers Improve Perkins w/ Tub/ Shower Transfers Improve Perkins w/ Car Transfers Transfers Interventions Transfer Training Therapeutic Exercise Activity Tolerance Work Use of Assistive Devices Patient/Caregiver Education Problem Area: Bowel/Bladder Managment Bowel/Bladder Outcomes Bowel/Bladder Interventions Problem Area: Toileting Toileting Outcomes Improve Perkins w/ Toileting Toileting Interventions ADL Training Balance Work Use of Assistive Devices Patient/Caregiver Education Problem Area: Nutrition Nutrition Outcomes Understand and Comply w/ Diet Improve/Maintain Oral Intake Nutrition Interventions Nutritional Counseling Monitor Nutrient Intake Patient/Caregiver Education Problem Area: Comprehension Comprehension Outcomes Comprehension Interventions Problem Area: Expression Expression Outcomes Expression Interventions Problem Area: Problem Solving Problem Solving Outcomes Problem Solving Interventions Problem Area: Memory Memory Outcomes Memory Interventions Problem Area: Pain Management Pain Management Outcomes Demonstrate/Verbalize Pain Strategies Pain Management Interventions Medication Management Positioning/Turning Patient/Caregiver Education Problem Area: Knowledge Deficits Knowledge Deficits Outcomes Verbalize Precautions Knowledge Deficits Interventions Disease/Injury/Sx. Intervention Education Medication Use Education Body Mechanics/Joint Protection Education Disease Management Education Health Maintainence Education Safety Education Problem Area: Skin/Tissue Integrity Skin/Tissue Integrity Outcomes Exhibit Healing of Wound/ Incision Demonstrate Understanding of Pressure Relief Skin/Tissue Integrity Interventions Skin/Wound Care Pressure Relief Instruction Dressing Change Education Positioning/Turning Problem Area: Social Interaction Social Interaction Outcomes Social Interaction Interventions Problem Area: Adjustment to Disability Adjustment to Disability Outcomes Adjustment to Disability Interventions Problem Area: Discharge Concerns Discharge Concerns Outcomes Discharge Home w/ Necessary Equipment Have Home Health/Outpatient Services Discharge Concerns Interventions Discharge Planning Family/Caregiver Conference Family/Caregiver Training Problem Area: Community Reintegration Community Reintegration Outcomes Demonstrate Understanding of Community Resources Community Reintegration Interventions Provide Community Resources Problem Area: Home Management Home Management Outcomes Improve Perkins w/ Home Management Home Management Interventions Activity Tolerance Work Patient/Caregiver Education Problem Area: Safety Safety Outcomes Provide Safe Environment Demonstrate Good Safety w/ Transfers/Mobility Safety Interventions Identify Fall Risk [place] Pt. to Environment Reduce Environmental Hazards Problem Area: Medication Education Medication Education Outcomes Patient/Caregiver will Verbalize Understanding of Medications Medication Education Interventions Explain Administration/Side Effects/Interactions Problem Area: Diabetes Education Diabetes Education Outcomes Demonstrate Knowledge of Resources Availlable in Diabetic Ed. Folder Diabetes Education Interventions Give Pt. Diabetes Education Folder Discuss Pathophysiology of Diabetes Problem Area: Oxygenation Oxygenation Outcomes Oxygenation Interventions Problem Area: Cardiovascular Cardiovascular Outcomes Cardiovascular Interventions Physician Only Medical Prognosis and Rehabilitation Patient demonstrates good Potential (Completed by Physician) rehab potential. Medical Prognosis: Good This plan of care has been developed based on the findings from the pre- admission assessment, post admission physician evaluation, information gathered from the assessments from all therapy disciplines and other pertinent clinicians. The plan of care has been reviewed and discussed in collaboration with the interdisciplinary team. The plan of care will be reviewed and updated at least weekly. 60 y.o. male s/p left BKA, now bilateral amputee as pt has a history of right BKA in September 2015. Post-op course significant for acute on chronic anemia, supratherapeutic INR, and leukocytosis secondary to gangrene. The patient remains at risk for infection, bleeding, falls, phantom pain, worsening leukocytosis, depression, PE, syncope, hypotension, contracture formation. Pt reports difficulty coping with now being a bilateral amputee; psych consult requested due to depression. INR now in therapeutic range; pharmacy to resume coumadin on today. BP meds discussed with Nephrology on today; meds adjusted to prevent hypotension. Pt is tolerating therapies; noted to have some pain with PROM at knee, hamstring tightness. Pt continues with functional deficits; remains an appropriate candidate for IRU admission.
--- NOTE | 2016-04-17 15:48 | Progress Note ---
Assessment and Plan 60 y.o. male s/p left BKA, now bilateral amputee - s/p left BKA- Amp[place]ield; pain control; wound healing well - HTN- meds adjusted after discussion with Nephrology - DM- blood sugars running on the low side; will d/c scheduled novolog for now to avoid hypoglycemia; cover with SSI; restart when appropriate - ESRD- Nephrology following; continue on HD - Afib- INR down to therapeutic range; tachycardic overnight; not tolerating BP meds due to hypotension; follow - acute on chronic anemia- follow; stable - history of right BKA - depression- psych consulted - Patient Problems (1) Atherosclerotic peripheral vascular disease with gangrene Onset Date: 09/28/15 Current Visit: Yes Status: Acute (2) Amputation of left lower extremity below knee Current Visit: Yes Status: Acute (3) A-fib Onset Date: 09/28/15 Current Visit: Yes Status: Chronic Qualifiers: Atrial fibrillation type: chronic Qualified Code(s): I48.2 - Chronic atrial fibrillation (4) Anemia in chronic kidney disease Current Visit: Yes Status: Chronic (5) Diabetes mellitus with peripheral autonomic neuropathy Onset Date: 09/23/15 Current Visit: Yes Status: Chronic Qualifiers: Diabetes mellitus type: type 2 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 insulin use: with shelter use Qualified Code(s): E11.43 - Type 2 diabetes mellitus with diabetic autonomic (poly)neuropathy; Z79.4 - long term care phlebotomist (current) use of insulin (6) End-stage renal disease Onset Date: 09/23/15 Current Visit: Yes Status: Chronic (7) HTN (hypertension) Current Visit: Yes Status: Chronic Qualifiers: Hypertension type: essential hypertension Qualified Code(s): I10 - Essential (primary) hypertension (8) Depression (emotion) Current Visit: Yes Status: Acute Qualifiers: Depression Type: D Major depression recurrence: M Active/Remission status : A Major depression episode severity: M Psychotic features: P Trimester: T (9) Complete below knee amputation of right lower extremity Onset Date: 09/23/15 Current Visit: No Status: Acute Qualifiers: Encounter type: E Subjective Date of service: 04/17/16 Principal diagnosis: Left BKA Interval history: Pt seen in room this AM, F/U IPR course, left BKA, now bilateral amputee. Pt expressed depression, difficulty coping with being a bilateral amputee; agreed to Psych consult Objective - Constitutional Vitals: Vital Signs - 12hr 04/17/16 04/17/16 04/17/16 05:51 08:15 08:58 Temperature 98.7 F Pulse Rate 66 Pulse Rate [ 66 Left Brachial] Pulse Rate [ 116 H Left Radial] Respiratory 22 Rate Blood Pressure 106/56 Blood Pressure 92/62 106/55 [Left Arm] O2 Sat by Pulse 98 Oximetry 04/17/16 04/17/16 10:00 11:30 Temperature Pulse Rate 66 Pulse Rate [ 66 Left Brachial] Pulse Rate [ 66 Left Radial] Respiratory 22 Rate Blood Pressure 106/55 Blood Pressure [Left Arm] O2 Sat by Pulse 98 Oximetry General appearance: Present: mild distress (due to depression) - EENT Eyes: EOM intact ENT: hearing intact - Neck Neck: supple, normal ROM - Respiratory Respiratory effort: normal Extremity abnormal: other (left residual limb healing well; chanel in place; no drainage; hamstring tightness noted with PROM at knee for full knee extension ) - Neurologic Neurologic: CNII-XII intact, moves all extremities - Psychiatric Psychiatric: cooperative, depressed - Allied health notes Allied health notes reviewed: PT (min-modA for transfers), OT (independent with eating; s/u to maxA for remaining ADLs) - Labs CBC & Chem 7: 04/17/16 10:01 04/16/16 04:48 Labs: Abnormal lab results 04/16/16 04/17/16 04/17/16 Range/Units 22:18 04:38 10:01 Hgb 8.3 L (11.8-15.2) gm/dl Hct 26.4 L (35.5-45.6) % PT 30.6 H (12.2-14.9) Sec. INR 2.91 H (0.87-1.13) POC Glucose 152 H (70-105) 04/17/16 Range/Units 12:33 Hgb (11.8-15.2) gm/dl Hct (35.5-45.6) % PT (12.2-14.9) Sec. INR (0.87-1.13) POC Glucose 118 H (70-105)
[2016-04-17] MEDS ORDERED: COUMADIN PO SCH (17:00)
--- NOTE | 2016-04-17 17:36 | Progress Note ---
Assessment and Plan 1. DM: Continue with insulin therapy, Consistent 2000 ADA diet 2. Left BKA; POD # 2: Doing well with occasional phantom pain. Prior left BKA. continue with PT/OT 3. ESRD on HD on T, , and Fri. Nephrology following 4. PAV: 5. Afib: Rate controlled. anticoagulated 6. HTN: controlled 7. DVT ppx with lovenox and GI with pepcid Subjective Date of service: 04/17/16 Principal diagnosis: DM, Left BKA Interval history: No new complaint except for phantom pain Objective - Constitutional Vitals: Vital Signs - 12hr 04/17/16 04/17/16 04/17/16 05:51 08:15 08:58 Temperature 98.7 F Pulse Rate 66 Pulse Rate [ 66 Left Brachial] Pulse Rate [ 116 H Left Radial] Respiratory 22 Rate Blood Pressure 106/56 Blood Pressure 92/62 106/55 [Left Arm] O2 Sat by Pulse 98 Oximetry 04/17/16 04/17/16 10:00 11:30 Temperature Pulse Rate 66 Pulse Rate [ 66 Left Brachial] Pulse Rate [ 66 Left Radial] Respiratory 22 Rate Blood Pressure 106/55 Blood Pressure [Left Arm] O2 Sat by Pulse 98 Oximetry General appearance: Present: no acute distress, well-nourished - EENT Eyes: PERRL, EOM intact ENT: hearing intact, clear oral mucosa Ears: bilateral: normal - Neck Neck: supple, normal ROM - Respiratory Respiratory effort: normal Respiratory: bilateral: CTA - Cardiovascular Rhythm: regular Heart Sounds: Present: S1 & S2. Absent: gallop, rub Extremity abnormal: other (philomena BKA with left being more recent) - Gastrointestinal General gastrointestinal: Present: soft, non-tender, non-distended, normal bowel sounds - Integumentary Integumentary: clear, warm, dry - Musculoskeletal Musculoskeletal: 1, strength equal bilaterally - Neurologic Neurologic: moves all extremities - Psychiatric Psychiatric: memory intact, appropriate mood/affect, intact judgment & insight - Labs CBC & Chem 7: 04/17/16 10:01 04/16/16 04:48 Labs: Abnormal lab results 04/16/16 04/17/16 04/17/16 Range/Units 22:18 04:38 10:01 Hgb 8.3 L (11.8-15.2) gm/dl Hct 26.4 L (35.5-45.6) % PT 30.6 H (12.2-14.9) Sec. INR 2.91 H (0.87-1.13) POC Glucose 152 H (70-105) 04/17/16 Range/Units 12:33 Hgb (11.8-15.2) gm/dl Hct (35.5-45.6) % PT (12.2-14.9) Sec. INR (0.87-1.13) POC Glucose 118 H (70-105)
[2016-04-17] MEDS: PROTONIX PO SCH (18:05)
[2016-04-18 05:11] LABS: Hematocrit 26.5 % (35.5-45.6); Hemoglobin 8.6 gm/dl (11.8-15.2); Mean Corpuscular HGB Conc 32 % (32-34); Mean Corpuscular Hemoglobin 28 pg (28-32); Mean Corpuscular Volume 87 fl (84-94); Platelet Count 438 K/mm3 (140-440); Red Blood Count 3.03 M/mm3 (3.65-5.03); White Blood Count 12.1 K/mm3 (4.5-11.0)
[2016-04-18 05:19] LABS: BUN/Creatinine Ratio 6.5; Calcium 10.5 mg/dL (8.4-10.2); Potassium 4.4 mmol/L (3.6-5.0); Red Cell Distribution Width 23.6 % (13.2-15.2)
[2016-04-18 05:23] LABS: INR 2.44 (0.87-1.13)
--- NOTE | 2016-04-18 09:02 | Progress Note ---
Assessment and Plan 1. DM: Continue with insulin therapy, Consistent 2000 ADA diet 2. Left BKA; POD # 2: Doing well with occasional phantom pain. Prior left BKA. continue with PT/OT 3. ESRD on HD on T, , and Sat. Nephrology following 4. Leukocytosis: ? reactive post op. No fever. Trend 5. Afib: Rate controlled. anticoagulated 6. HTN: controlled 7. DVT ppx with lovenox and GI with pepcid Subjective Date of service: 04/18/16 Principal diagnosis: DM, Left BKA Interval history: No new complaint except for phantom pain. Feels overwhelmed Objective - Constitutional Vitals: Vital Signs - 12hr 04/17/16 04/17/16 04/17/16 21:00 22:00 22:38 Temperature 97.5 F L Pulse Rate 102 H Pulse Rate [ 98 H Left Brachial] Pulse Rate [ 102 H Left Radial] Respiratory 18 20 Rate Respiratory 22 Rate [Left Lower Leg] Respiratory 20 Rate [Right Leg ] Blood Pressure 128/85 Blood Pressure 127/89 [Left Arm] O2 Sat by Pulse 100 99 Oximetry 04/17/16 22:39 Temperature Pulse Rate 102 H Pulse Rate [ Left Brachial] Pulse Rate [ Left Radial] Respiratory Rate Respiratory Rate [Left Lower Leg] Respiratory Rate [Right Leg ] Blood Pressure 128/85 Blood Pressure [Left Arm] O2 Sat by Pulse Oximetry General appearance: Present: no acute distress - EENT Eyes: PERRL - Neck Neck: supple - Respiratory Respiratory: bilateral: CTA - Cardiovascular Rhythm: regular Extremity abnormal: other (philomena BKA) - Gastrointestinal General gastrointestinal: Present: soft, non-tender, non-distended - Integumentary Integumentary: warm, dry - Musculoskeletal Musculoskeletal: strength equal bilaterally, right sided weakness - Neurologic Neurologic: CNII-XII intact - Psychiatric Psychiatric: depressed - Labs CBC & Chem 7: 04/18/16 04:33 04/18/16 04:33 Labs: Abnormal lab results 04/17/16 04/17/16 04/17/16 Range/Units 10:01 12:33 16:57 WBC (4.5-11.0) K/mm3 RBC (3.65-5.03) M/mm3 Hgb 8.3 L (11.8-15.2) gm/dl Hct 26.4 L (35.5-45.6) % RDW (13.2-15.2) % PT (12.2-14.9) Sec. INR (0.87-1.13) Sodium (137-145) mmol/L Chloride (98-107) mmol/L BUN (9-20) mg/dL Creatinine (0.8-1.5) mg/dL Glucose (75-100) mg/dL POC Glucose 118 H 140 H (70-105) Calcium (8.4-10.2) mg/dL 04/18/16 04/18/16 04/18/16 Range/Units 04:33 04:33 04:33 WBC 12.1 H (4.5-11.0) K/mm3 RBC 3.03 L (3.65-5.03) M/mm3 Hgb 8.6 L (11.8-15.2) gm/dl Hct 26.5 L (35.5-45.6) % RDW 23.6 H (13.2-15.2) % PT 26.6 H (12.2-14.9) Sec. INR 2.44 H (0.87-1.13) Sodium 135 L (137-145) mmol/L Chloride 92.0 L (98-107) mmol/L BUN 41 H (9-20) mg/dL Creatinine 6.3 H (0.8-1.5) mg/dL Glucose 74 L (75-100) mg/dL POC Glucose (70-105) Calcium 10.5 H (8.4-10.2) mg/dL 04/18/16 Range/Units 06:56 WBC (4.5-11.0) K/mm3 RBC (3.65-5.03) M/mm3 Hgb (11.8-15.2) gm/dl Hct (35.5-45.6) % RDW (13.2-15.2) % PT (12.2-14.9) Sec. INR (0.87-1.13) Sodium (137-145) mmol/L Chloride (98-107) mmol/L BUN (9-20) mg/dL Creatinine (0.8-1.5) mg/dL Glucose (75-100) mg/dL POC Glucose 65 L (70-105) Calcium (8.4-10.2) mg/dL
[2016-04-18] MEDS: NOVOLOG SUB-Q SCH ×4 (09:49→22:48)
[2016-04-18] MEDS: COREG PO SCH ×2 (09:50→22:45)
[2016-04-18] MEDS: APRESOLINE PO SCH ×2 (09:50→22:46)
--- NOTE | 2016-04-18 10:37 | Progress Note ---
Assessment and Plan - Patient Problems (1) End-stage renal disease Onset Date: 09/23/15 Current Visit: Yes Status: Chronic Plan to address problem: continue HD on T/T/S schedule. (2) Atherosclerotic peripheral vascular disease with gangrene Onset Date: 09/28/15 Current Visit: Yes Status: Acute Plan to address problem: PVD w/ L foot gangrene s/p L BKA, continue PT/OT (3) HTN (hypertension) Current Visit: Yes Status: Chronic Qualifiers: Hypertension type: essential hypertension Qualified Code(s): I10 - Essential (primary) hypertension Plan to address problem: BP lower side, BP meds titrated down. Clonidine d/pam. Will adjust UF as tolerated. (4) Secondary hyperparathyroidism (of renal origin) Current Visit: No Status: Chronic Plan to address problem: continue sensipar, renvela. increased sensipar to 60mg po qd given persistent hypercalcemia. (5) Anemia in chronic kidney disease Current Visit: Yes Status: Chronic Plan to address problem: continue EPO with HD (6) Depression (emotion) Current Visit: Yes Status: Acute Qualifiers: Depression Type: D Major depression recurrence: M Active/Remission status : A Major depression episode severity: M Psychotic features: P Trimester: T Plan to address problem: awaiting psych evaluation Subjective Date of service: 04/18/16 Principal diagnosis: DM, Left BKA Interval history: pt awake, alert, in NAD, feeling somewhat better today. Objective - Vital Signs Vital signs: Vital Signs - 12hr 04/17/16 04/17/16 04/18/16 22:38 22:39 08:00 Temperature 99.1 F Pulse Rate 102 H 102 H Pulse Rate [ 62 Left Brachial] Respiratory 20 Rate Blood Pressure 128/85 128/85 Blood Pressure 138/79 [Left Arm] O2 Sat by Pulse 100 Oximetry 04/18/16 09:50 Temperature Pulse Rate 62 Pulse Rate [ Left Brachial] Respiratory Rate Blood Pressure 138/79 Blood Pressure [Left Arm] O2 Sat by Pulse Oximetry - General Appearance General appearance: well-developed, well-nourished, appears stated age, chronically ill EENT: ATNC, PERRL Neck: no JVD Respiratory: Present: Clear to Ascultation Cardiology: regular, S1S2 Gastrointestinal: normal, normoactive bowel sounds Integumentary: no rash, other (b/l BKA) Neurologic: no focal deficit, alert and oriented x3, strength 5/5, CN 3-12 intact Psychiatric: depressed - Lab 04/18/16 04:33 04/18/16 04:33 Most recent lab results Calcium 10.5 mg/dL (8.4-10.2) H 04/18/16 04:33
[2016-04-18] MEDS: PROTONIX PO SCH (10:42)
[2016-04-18] MEDS: PERCOCET 5/325 PO PRN (10:42)
[2016-04-18] MEDS: RENVELA PO SCH ×3 (10:42→19:12)
[2016-04-18] MEDS: SENSIPAR PO SCH (10:48)
[2016-04-18] MEDS: ALDACTONE PO SCH ×2 (10:49→22:47)
--- NOTE | 2016-04-18 15:36 | Progress Note ---
Assessment and Plan 60 y.o. male s/p left BKA, now bilateral amputee - s/p left BKA- [place]; reports some phantom pain at night; will start low dose neurontin - HTN- continue to follow; avoid hypotension - DM- SSI only, ADA diet; low blood sugar this AM - ESRD- Nephrology following; continue on HD, TTS - Afib- INR remains therapeutic, rate controlled - acute on chronic anemia- slightly improved - leukocytosis- improving - history of right BKA - depression- psych following - team conference held on today- pt is Rosa for eating; supervision for grooming , bathing, dressing; maxA for toileting and toilet transfer, Nicolle for shower transfer; modA for bed mobility, Bed/chair/WC transfers; Rosa for wheelchair mobility. Barriers- fear, depression. Tentative d/c date is 04/24. - Patient Problems (1) Atherosclerotic peripheral vascular disease with gangrene Onset Date: 09/28/15 Current Visit: Yes Status: Acute (2) Amputation of left lower extremity below knee Current Visit: Yes Status: Acute (3) A-fib Onset Date: 09/28/15 Current Visit: Yes Status: Chronic Qualifiers: Atrial fibrillation type: chronic Qualified Code(s): I48.2 - Chronic atrial fibrillation (4) Anemia in chronic kidney disease Current Visit: Yes Status: Chronic (5) Diabetes mellitus with peripheral autonomic neuropathy Onset Date: 09/23/15 Current Visit: Yes Status: Chronic Qualifiers: Diabetes mellitus type: type 2 Diabetes mellitus assisted insulin use: with assisted use Qualified Code(s): E11.43 - Type 2 diabetes mellitus with diabetic autonomic (poly)neuropathy; Z79.4 - [facility] (current) use of insulin (6) End-stage renal disease Onset Date: 09/23/15 Current Visit: Yes Status: Chronic (7) HTN (hypertension) Current Visit: Yes Status: Chronic Qualifiers: Hypertension type: essential hypertension Qualified Code(s): I10 - Essential (primary) hypertension (8) Depression (emotion) Current Visit: Yes Status: Acute Qualifiers: Depression Type: D Major depression recurrence: M Active/Remission status : A Major depression episode severity: M Psychotic features: P Trimester: T (9) Complete below knee amputation of right lower extremity Onset Date: 09/23/15 Current Visit: No Status: Acute Qualifiers: Encounter type: E Subjective Date of service: 04/18/16 Principal diagnosis: DM, Left BKA Interval history: Pt seen in PT gym this afternoon, F/U IPR course, left BKA, now bilateral amputee. Pt is participating in therapies; remains depressed with current medical condition; refused shower with OT this AM due to fear/anxiety Objective - Constitutional Vitals: Vital Signs - 12hr 04/18/16 04/18/16 04/18/16 08:00 09:50 10:00 Temperature 99.1 F Pulse Rate 62 Pulse Rate [ 62 Left Brachial] Respiratory 20 20 Rate Blood Pressure 138/79 Blood Pressure 138/79 [Left Arm] O2 Sat by Pulse 100 100 Oximetry General appearance: Present: mild distress (mood) - EENT Eyes: EOM intact ENT: hearing intact - Neck Neck: supple, normal ROM - Respiratory Respiratory effort: normal Extremity abnormal: other (Ampushield in place to LLE; well healed right BKA; healing medial right thigh wound from poorly fitting ampushield which was present prior to admission) - Neurologic Neurologic: CNII-XII intact, moves all extremities - Psychiatric Psychiatric: cooperative, depressed - Labs CBC & Chem 7: 04/18/16 04:33 04/18/16 04:33 Labs: Abnormal lab results 04/17/16 04/18/16 04/18/16 Range/Units 16:57 04:33 04:33 WBC 12.1 H (4.5-11.0) K/mm3 RBC 3.03 L (3.65-5.03) M/mm3 Hgb 8.6 L (11.8-15.2) gm/dl Hct 26.5 L (35.5-45.6) % RDW 23.6 H (13.2-15.2) % PT (12.2-14.9) Sec. INR (0.87-1.13) Sodium 135 L (137-145) mmol/L Chloride 92.0 L (98-107) mmol/L BUN 41 H (9-20) mg/dL Creatinine 6.3 H (0.8-1.5) mg/dL Glucose 74 L (75-100) mg/dL POC Glucose 140 H (70-105) Calcium 10.5 H (8.4-10.2) mg/dL 04/18/16 04/18/16 04/18/16 Range/Units 04:33 06:56 11:41 WBC (4.5-11.0) K/mm3 RBC (3.65-5.03) M/mm3 Hgb (11.8-15.2) gm/dl Hct (35.5-45.6) % RDW (13.2-15.2) % PT 26.6 H (12.2-14.9) Sec. INR 2.44 H (0.87-1.13) Sodium (137-145) mmol/L Chloride (98-107) mmol/L BUN (9-20) mg/dL Creatinine (0.8-1.5) mg/dL Glucose (75-100) mg/dL POC Glucose 65 L 121 H (70-105) Calcium (8.4-10.2) mg/dL
[2016-04-18] MEDS ORDERED: NACL 0.9 (PRIMING MACHINE ONLY DIALYSIS) MC ONE (16:22)
[2016-04-18] MEDS ORDERED: NEURONTIN PO SCH ×2 (18:00)
[2016-04-18] MEDS: HEPARIN IV PRN (18:41)
[2016-04-18] MEDS: COUMADIN PO SCH (19:10)
--- NOTE | 2016-04-18 21:28 | Consultation ---
History of Present Illness - Reason for Consult Reason for consult: depression - Chief Complaint Chief complaint: cc: "I'm not crazy" 60 year old BM with no known prior psych history presented to [facility] for his second BKA. We've been asked to evaluate the patient for possible depression. Regarding his recent surgery and new cahllanges he must face the patient noted, "I wasn't happy but what could I do." He admits to feeling depressed from the change in life that must occur but he relates that depression to a loss. It hasn't led to suicidal ideation. He still has future goals of returning back home and working through PT to regain his function. He denies a lack of energy and focus to work on himself. He notes that his girlfriend will help him but he doesn't want to place too much a burden on her. "I'm not giving up." He denies any SI/HI/AH/VH. No psychosis or euphoria. No grandiose thoughts or paranoia. No reexperiencing any trauma. He hasn't turned to etoh or illicit drugs to cope. Medications and Allergies Allergies Allergy/AdvReac Type Severity Reaction Status Date / Time No Known Allergies Allergy Unverified 11/05/12 18:40 Home Medications Medication Instructions Recorded Confirmed Last Taken Type Cinacalcet [Sensipar] 30 mg PO QDAY #30 tablet 10/24/15 04/18/16 04/11/16 Rx Sevelamer Carbonate [Renvela] 800 mg PO TIDWM #90 tablet 10/24/15 04/18/1604/11 Rx Warfarin [Coumadin] 3 mg PO DAILY@1700 #30 tablet 10/24/15 04/18/16 04/09/16 Rx hydrALAZINE [Apresoline TAB] 100 mg PO BID #60 tab 10/24/15 04/18/16 04/11/16 23 :55 Rx oxyCODONE [Roxicodone TAB] 5 mg PO Q6H PRN #60 tablet 11/23/15 04/18/16 Rx Insulin NPH/Regular [NovoLIN 70/30] 10 unit SUB-Q QAM@1000 units 01/10/1604/1804/11/16 08:00 Rx Insulin NPH/Regular [NovoLIN 70/30] 10 unit SUB-Q QPMDIAB units 01/10/1604/11/16 23:45 Rx 5 UNITS Carvedilol [Coreg] 25 mg PO BID 04/10/16 04/18/16 04/11/16 23:55 History Spironolactone 50 mg PO BID 04/12/16 04/18/16 04/11/16 History cloNIDine [Catapres] 0.1 mg PO BID 04/12/16 04/18/16 04/11/16 23:55 History Active Meds: Active Medications Acetaminophen (Tylenol) 650 mg PO Q4H PRN PRN Reason: Pain MILD(1-3)/Fever >100.5/PAZ Last Admin: 04/17/16 11:28 Dose: 650 mg Carvedilol (Coreg) 12.5 mg PO BID [facility] Last Admin: 04/18/16 09:50 Dose: Not Given Cinacalcet (Sensipar) 60 mg PO QDAY [facility] Last Admin: 04/18/16 10:48 Dose: 60 mg Dextrose (D50w (25gm)) 50 ml IV PRN PRN PRN Reason: Hypoglycemia Epoetin Christopher (Epogen) 20,000 unit IV DONELL PRN PRN Reason: DIALYSIS Stop: 04/25/16 11:01 Last Admin: 04/18/16 18:39 Dose: 20,000 unit Gabapentin (Neurontin) 300 mg PO QPM [facility] Last Admin: 04/18/16 19:09 Dose: 300 mg Heparin Sodium (Porcine) (Heparin) 5,000 unit IV DONELL PRN PRN Reason: hemodialysis Last Admin: 04/18/16 18:41 Dose: 5,000 unit Hydralazine HCl (Apresoline) 50 mg PO BID [facility] Last Admin: 04/18/16 09:50 Dose: Not Given Sodium Chloride (Nacl 0.9%) 100 mls @ 999 mls/hr IV DONELL PRN PRN Reason: Hypotension Insulin Aspart (Novolog) 0 units SUB-Q ACHS [facility] PRN Reason: Protocol Last Admin: 04/18/16 19:07 Dose: Not Given Oxycodone/Acetaminophen (Percocet 5/325) 1 tab PO Q6H PRN PRN Reason: Pain, Moderate (4-6) Last Admin: 04/18/16 10:42 Dose: 1 tab Pantoprazole Sodium (Protonix) 40 mg PO QDAY [facility] Last Admin: 04/18/16 10:42 Dose: 40 mg Senna (Senokot) 8.6 mg PO Q12H PRN PRN Reason: Laxative Effect Sevelamer Carbonate (Renvela) 800 mg PO TIDWM [facility] Last Admin: 04/18/16 19:12 Dose: 800 mg Spironolactone (Aldactone) 50 mg PO BID [facility] Last Admin: 04/18/16 10:49 Dose: Not Given Warfarin Sodium (Coumadin Pharmacy To Dose) 1 each PO PKCONSULT [facility] PRN Reason: Protocol Warfarin Sodium (Coumadin) 1.5 mg PO DAILY@1700 [facility] Last Admin: 04/18/16 19:10 Dose: 1.5 mg Past psychiatric history - Past Medical History Past Medical History: diabetes Past Surgical History: Other (BKA) - past Psychiatric treatment and history psychiatric treatment history: inpt: none outpt: none No SA no psych meds tried no family hx of psych - Social History Social history: other (lives with girlfriend as a support, 2 children, no work, school: some college) Mental Status Exam - Vital signs Last Vital Signs Temp 98.1 F 04/18/16 18:30 Pulse 101 H 04/18/16 19:00 Resp 18 04/18/16 19:00 BP 99/61 04/18/16 19:00 Pulse Ox 99 04/18/16 19:00 - Exam Orientation: time, place, person Affect: normal Mood: other (depressed) Thought Process: Intact Perceptions: none Speech: normal rate and pattern Concentration: focused Motor activity: normal Level of consciousness: alert Memory: Intact Interaction: cooperative Mini mental status exam(if necessary): 24-30 Results Result Diagrams: 04/18/16 04:33 04/18/16 04:33 Abnormal lab results 04/18/16 04/18/16 04/18/16 Range/Units 04:33 04:33 04:33 WBC 12.1 H (4.5-11.0) K/mm3 RBC 3.03 L (3.65-5.03) M/mm3 Hgb 8.6 L (11.8-15.2) gm/dl Hct 26.5 L (35.5-45.6) % RDW 23.6 H (13.2-15.2) % PT 26.6 H (12.2-14.9) Sec. INR 2.44 H (0.87-1.13) Sodium 135 L (137-145) mmol/L Chloride 92.0 L (98-107) mmol/L BUN 41 H (9-20) mg/dL Creatinine 6.3 H (0.8-1.5) mg/dL Glucose 74 L (75-100) mg/dL POC Glucose (70-105) Calcium 10.5 H (8.4-10.2) mg/dL 04/18/16 04/18/16 04/18/16 Range/Units 06:56 11:41 18:34 WBC (4.5-11.0) K/mm3 RBC (3.65-5.03) M/mm3 Hgb (11.8-15.2) gm/dl Hct (35.5-45.6) % RDW (13.2-15.2) % PT (12.2-14.9) Sec. INR (0.87-1.13) Sodium (137-145) mmol/L Chloride (98-107) mmol/L BUN (9-20) mg/dL Creatinine (0.8-1.5) mg/dL Glucose (75-100) mg/dL POC Glucose 65 L 121 H 142 H (70-105) Calcium (8.4-10.2) mg/dL All other labs normal. Assessment and Plan Assessment and plan: 60 year old BM with no known prior psych history presented to [facility] for his second BKA. We've been asked to evaluate the patient for possible depression. Patient exhibited common responses to what is francisca to a loss or grief. He was displaying some depression and anger at the loss of his second partial limb. However he wasn't to a point where I would characterize this as a Major Depression. He denies any SI/HI/AH or VH. He will require the normal rehab after the event and certainly require the support of his girlfriend but at this time he has future hopes and goals. He presents with no psychosis or fany. He hasn't coped by turning to maladaptive things like etoh or illicit drugs. At this time no further psych involvement is necessary unless requested by the patient or worsening symptoms present themselves.
[2016-04-19 05:32] LABS: INR 2.59 (0.87-1.13)
[2016-04-19] MEDS: NOVOLOG SUB-Q SCH ×4 (09:00→22:00)
--- NOTE | 2016-04-19 09:27 | Progress Note ---
Assessment and Plan 1. DM: Continue with insulin therapy, Consistent 2000 ADA diet 2. Left BKA; POD # 2: Doing well with occasional phantom pain. Prior left BKA. continue with PT/OT 3. ESRD on HD on , , and Sat. Nephrology following 4. Leukocytosis: ? reactive post op. No fever. Trend 5. Afib: Rate controlled. anticoagulated 6. HTN: getting low. Hold off on hydrallazin to avoid Orthostasis with PT. 7. DVT ppx with lovenox and GI with pepcid Subjective Date of service: 04/19/16 Principal diagnosis: DM, Left BKA Interval history: c/o wound on the right thigh from pressure form the prosthesis - old Objective - Constitutional Vitals: Vital Signs - 12hr 04/18/16 04/18/16 04/18/16 22:00 22:45 22:47 Temperature Pulse Rate 91 H 105 H Pulse Rate [ 105 H Left Radial] Respiratory 18 Rate Respiratory 18 Rate [Left Lower Leg] Blood Pressure 128/78 128/78 Blood Pressure [Left Arm] O2 Sat by Pulse 99 Oximetry 04/19/16 08:30 Temperature 97.9 F Pulse Rate Pulse Rate [ 99 H Left Radial] Respiratory 18 Rate Respiratory Rate [Left Lower Leg] Blood Pressure Blood Pressure 115/74 [Left Arm] O2 Sat by Pulse 100 Oximetry General appearance: Present: no acute distress, well-nourished - EENT Eyes: PERRL, EOM intact ENT: hearing intact, clear oral mucosa Ears: bilateral: normal - Neck Neck: supple, normal ROM - Respiratory Respiratory effort: normal Respiratory: bilateral: CTA - Cardiovascular Rhythm: regular Heart Sounds: Present: S1 & S2. Absent: gallop, rub Extremity abnormal: other (philomena BKA) - Gastrointestinal General gastrointestinal: Present: soft, non-tender, non-distended, normal bowel sounds - Integumentary Integumentary: clear, warm, dry - Musculoskeletal Musculoskeletal: right sided weakness, other (philomena BKA) - Neurologic Neurologic: moves all extremities - Psychiatric Psychiatric: intact judgment & insight, memory intact, depressed - Labs CBC & Chem 7: 04/18/16 04:33 04/18/16 04:33 Labs: Abnormal lab results 04/18/16 04/18/16 04/18/16 Range/Units 11:41 18:34 21:27 PT (12.2-14.9) Sec. INR (0.87-1.13) POC Glucose 121 H 142 H 130 H (70-105) 04/19/16 Range/Units 04:31 PT 27.9 H (12.2-14.9) Sec. INR 2.59 H (0.87-1.13) POC Glucose (70-105)
[2016-04-19] MEDS: APRESOLINE PO SCH ×2 (12:30→22:45)
[2016-04-19] MEDS: ALDACTONE PO SCH ×2 (12:30→22:45)
[2016-04-19] MEDS: PROTONIX PO SCH (12:31)
[2016-04-19] MEDS: COREG PO SCH ×2 (12:31→22:45)
[2016-04-19] MEDS: RENVELA PO SCH ×3 (12:31→17:52)
[2016-04-19] MEDS: SENSIPAR PO SCH (12:32)
--- NOTE | 2016-04-19 12:33 | Progress Note ---
Assessment and Plan 60 y.o. male s/p left BKA, now bilateral amputee - s/p left BKA- [facility]; d/c neurontin due to drowsiness - HTN- stable on current regimen - DM- controlled with ADA, not requiring SSI - ESRD- Nephrology following; continue on HD, TTS - Afib- INR remains therapeutic, rate controlled - history of right BKA - depression- adjustment disorder due to now being a bilateral amputee; no medications recommended by Psych - Patient Problems (1) Atherosclerotic peripheral vascular disease with gangrene Onset Date: 09/28/15 Current Visit: Yes Status: Acute (2) Amputation of left lower extremity below knee Current Visit: Yes Status: Acute (3) A-fib Onset Date: 09/28/15 Current Visit: Yes Status: Chronic Qualifiers: Atrial fibrillation type: chronic Qualified Code(s): I48.2 - Chronic atrial fibrillation (4) Diabetes mellitus with peripheral autonomic neuropathy Onset Date: 09/23/15 Current Visit: Yes Status: Chronic Qualifiers: Diabetes mellitus type: type 2 Diabetes mellitus longterm insulin use: with tandem mill sticker use Qualified Code(s): E11.43 - Type 2 diabetes mellitus with diabetic autonomic (poly)neuropathy; 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 (5) End-stage renal disease Onset Date: 09/23/15 Current Visit: Yes Status: Chronic (6) HTN (hypertension) Current Visit: Yes Status: Chronic Qualifiers: Hypertension type: essential hypertension Qualified Code(s): I10 - Essential (primary) hypertension (7) Depression (emotion) Current Visit: Yes Status: Acute Qualifiers: Depression Type: D Major depression recurrence: M Active/Remission status : A Major depression episode severity: M Psychotic features: P Trimester: T (8) Complete below knee amputation of right lower extremity Onset Date: 09/23/15 Current Visit: No Status: Acute Qualifiers: Encounter type: E Subjective Date of service: 04/19/16 Principal diagnosis: DM, Left BKA Interval history: Pt seen in room this AM, F/U IPR course, left BKA, now bilateral amputee. Very drowsy this AM, likely due to initiation of Neurontin Objective - Constitutional Vitals: Vital Signs - 12hr 04/19/16 08:30 Temperature 97.9 F Pulse Rate [ 99 H Left Radial] Respiratory 18 Rate Blood Pressure 115/74 [Left Arm] O2 Sat by Pulse 100 Oximetry General appearance: Present: no acute distress - EENT Eyes: EOM intact ENT: hearing intact - Neck Neck: supple, normal ROM - Respiratory Respiratory effort: normal Respiratory: bilateral: CTA - Cardiovascular Rhythm: regular Heart Sounds: Present: S1 & S2 Extremity abnormal: other ([place] in place) - Gastrointestinal General gastrointestinal: Present: soft, non-tender, non-distended, normal bowel sounds - Neurologic Neurologic: CNII-XII intact, moves all extremities - Psychiatric Psychiatric: cooperative - Allied health notes Allied health notes reviewed: PT (min-maxA for transfers), OT (supervision for dressing) - Labs CBC & Chem 7: 04/18/16 04:33 04/18/16 04:33 Labs: Abnormal lab results 04/18/16 04/18/16 04/19/16 Range/Units 18:34 21:27 04:31 PT 27.9 H (12.2-14.9) Sec. INR 2.59 H (0.87-1.13) POC Glucose 142 H 130 H (70-105)
[2016-04-19] MEDS: PERCOCET 5/325 PO PRN (16:30)
--- NOTE | 2016-04-19 16:30 | Progress Note ---
Assessment and Plan - Patient Problems (1) End-stage renal disease Onset Date: 09/23/15 Current Visit: Yes Status: Chronic Plan to address problem: continue HD on T/T/S schedule. (2) Atherosclerotic peripheral vascular disease with gangrene Onset Date: 09/28/15 Current Visit: Yes Status: Acute Plan to address problem: PVD w/ L foot gangrene s/p L BKA, continue PT/OT (3) HTN (hypertension) Current Visit: Yes Status: Chronic Qualifiers: Hypertension type: essential hypertension Qualified Code(s): I10 - Essential (primary) hypertension Plan to address problem: Will monitor BP on current meds, currently well controlled. (4) Secondary hyperparathyroidism (of renal origin) Current Visit: No Status: Chronic Plan to address problem: continue sensipar, renvela (5) Anemia in chronic kidney disease Current Visit: Yes Status: Chronic Plan to address problem: continue EPO with HD (6) Depression (emotion) Current Visit: Yes Status: Acute Qualifiers: Depression Type: D Major depression recurrence: M Active/Remission status : A Major depression episode severity: M Psychotic features: P Trimester: T Plan to address problem: follow psych recommendations Subjective Principal diagnosis: DM, Left BKA Interval history: patient awake, alert, in NAD. Objective - Vital Signs Vital signs: Vital Signs - 12hr 04/19/16 08:30 Temperature 97.9 F Pulse Rate [ 99 H Left Radial] Respiratory 18 Rate Blood Pressure 115/74 [Left Arm] O2 Sat by Pulse 100 Oximetry - General Appearance General appearance: well-developed, well-nourished, appears stated age EENT: ATNC, PERRL, mucous membranes moist Neck: no JVD Respiratory: Present: Clear to Ascultation Cardiology: regular, S1S2 Gastrointestinal: normal, normoactive bowel sounds Integumentary: no rash, other (b/l BKA) Neurologic: no focal deficit, alert and oriented x3, strength 5/5, CN 3-12 intact Psychiatric: depressed - Lab 04/18/16 04:33 04/18/16 04:33 Most recent lab results Calcium 10.5 mg/dL (8.4-10.2) H 04/18/16 04:33
[2016-04-19] MEDS: COUMADIN PO SCH (17:52)
[2016-04-20 05:20] LABS: INR 2.57 (0.87-1.13)
[2016-04-20] MEDS: NOVOLOG SUB-Q SCH ×4 (07:30→22:40)
[2016-04-20] MEDS: COREG PO SCH ×2 (09:59→23:58)
[2016-04-20] MEDS: SENSIPAR PO SCH (10:00)
[2016-04-20] MEDS: PROTONIX PO SCH (10:01)
[2016-04-20] MEDS: ALDACTONE PO SCH ×2 (10:01→23:53)
[2016-04-20] MEDS: RENVELA PO SCH ×4 (10:01→19:01)
[2016-04-20] MEDS: APRESOLINE PO SCH ×2 (10:03→23:58)
[2016-04-20] MEDS: PERCOCET 5/325 PO PRN ×2 (13:00→19:02)
--- NOTE | 2016-04-20 15:32 | Progress Note ---
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 We'll start patient on nutritional supplement (5) Hypertension associated with stage 5 chronic kidney disease due to type 2 diabetes mellitus Current Visit: No Status: Acute Plan to address problem: Follow-up blood pressure on current medications Subjective Date of service: 04/20/16 Principal diagnosis: DM, Left BKA Interval history: Patient was seen lying in bed. On dialysis. He has no complaints other than heartburns. No nausea or vomiting. No chest pain or shortness of breath Objective - Exam Narrative Exam: Middle-aged -[place] male lying in bed in no acute distress HEENT normocephalic atraumatic, pupils equal reactive to light, pink, clear oropharynx Neck supple, no thyromegaly no jugular venous distention CVS S1-S2 regular rate rhythm without murmur, rub or gallop Chest clear to auscultation Abdomen soft nondistended nontender no organomegaly no bruit bowel sounds present Extremities no edema, bilateral lower extremity amputation Neuro awake, alert oriented x3 no gross deficit - Vital Signs Vital signs: Vital Signs - 12hr 04/20/16 04/20/16 04/20/16 08:00 09:59 10:01 Temperature 97.4 F L Pulse Rate 61 61 Pulse Rate [ 61 Left Brachial] Respiratory 20 Rate Blood Pressure 142/61 142/61 Blood Pressure 142/61 [Left Arm] - Lab 04/18/16 04:33 04/18/16 04:33 Most recent lab results Calcium 10.5 mg/dL (8.4-10.2) H 04/18/16 04:33
--- NOTE | 2016-04-20 15:32 | Progress Note ---
Assessment and Plan - Patient Problems (1) Amputation of left lower extremity below knee Current Visit: Yes Status: Acute Plan to address problem: Continue wound care PT as ordered (2) Atherosclerotic peripheral vascular disease with gangrene Onset Date: 09/28/15 Current Visit: Yes Status: Acute (3) A-fib Onset Date: 09/28/15 Current Visit: Yes Status: Chronic Qualifiers: Atrial fibrillation type: chronic Qualified Code(s): I48.2 - Chronic atrial fibrillation Plan to address problem: On anticoagulation ,monitor INR (4) Anemia in chronic kidney disease Current Visit: Yes Status: Chronic Plan to address problem: On hemodialysis ,monitor electrolyte (5) End-stage renal disease Onset Date: 09/23/15 Current Visit: Yes Status: Chronic Subjective Date of service: 04/20/16 Principal diagnosis: DM, Left BKA Interval history: Covering for Dr. Dr. Kennedy Patient seen and examined charts reviewed. Patient's in hemodialysis. Denied any new complaints no chest pain or shortness of breath. No fever reported Objective - Exam Narrative Exam: GENERAL: Not in distress HEENT: [Patient is not pale, not jaundiced, not cyanosed.] NECK: [No JVD, no thyroid enlargement and no lymphadenopathy.] CHEST/LUNGS: [Good air exchange bilaterally, no wheeze, no rales and no rhonchi. ] [No chest wall tenderness, percussion is normal, symmetrical chest wall.] HEART/CARDIOVASCULAR: [Regular rate and rhythm, S1 and S2 only, no murmur.] ABDOMEN: [Abdomen is soft, nondistended, no guarding, no rebound tenderness, no masses palpable per abdomen, active bowel sounds.] SKIN: [Warm and dry, no rash.] NEURO: [Awake, alert, oriented x3, speech normal. Power 5/5 in all the extremities.] EXTREMITIES: Bilateral lower extremity BKA - Constitutional Vitals: Vital Signs - 12hr 04/20/16 04/20/16 04/20/16 08:00 09:59 10:01 Temperature 97.4 F L Pulse Rate 61 61 Pulse Rate [ 61 Left Brachial] Respiratory 20 Rate Blood Pressure 142/61 142/61 Blood Pressure 142/61 [Left Arm] - Labs CBC & Chem 7: 04/18/16 04:33 04/18/16 04:33 Labs: Abnormal lab results 04/19/16 04/20/16 04/20/16 Range/Units 21:23 04:44 06:43 PT 27.7 H (12.2-14.9) Sec. INR 2.57 H (0.87-1.13) POC Glucose 117 H 106 H (70-105) 04/20/16 Range/Units 11:58 PT (12.2-14.9) Sec. INR (0.87-1.13) POC Glucose 112 H (70-105)
[2016-04-20] MEDS ORDERED: NACL 0.9 (PRIMING MACHINE ONLY DIALYSIS) MC ONE (15:43)
[2016-04-20] MEDS: HEPARIN IV PRN (17:30)
[2016-04-20] MEDS: COUMADIN PO SCH ×2 (17:36→19:04)
[2016-04-21 05:25] LABS: INR 2.64 (0.87-1.13)
[2016-04-21] MEDS: PERCOCET 5/325 PO PRN ×2 (06:50→20:24)
[2016-04-21] MEDS: RENVELA PO SCH ×3 (08:00→19:15)
--- NOTE | 2016-04-21 10:45 | Progress Note ---
Assessment and Plan - Patient Problems (1) Amputation of left lower extremity below knee Current Visit: Yes Status: Acute Plan to address problem: Continue wound care PT as ordered (2) Atherosclerotic peripheral vascular disease with gangrene Onset Date: 09/28/15 Current Visit: Yes Status: Acute Plan to address problem: Continue current management patient is status post bilateral BKA. Need ongoing physical therapy and rehabilitation (3) A-fib Onset Date: 09/28/15 Current Visit: Yes Status: Chronic Qualifiers: Atrial fibrillation type: chronic Qualified Code(s): I48.2 - Chronic atrial fibrillation Plan to address problem: On anticoagulation ,monitor INR (4) Anemia in chronic kidney disease Current Visit: Yes Status: Chronic Plan to address problem: On hemodialysis ,monitor electrolyte (5) End-stage renal disease Onset Date: 09/23/15 Current Visit: Yes Status: Chronic Subjective Date of service: 04/21/16 Principal diagnosis: DM, Left BKA Interval history: Covering for Dr. Dr. Kennedy. Patient seen and examined chart reviewed, denied any new complaints at this time. No chest pain or shortness of breath and no fever reported vital stable, had hemodialysis yesterday, otherwise no new concerns from nursing staff Objective - Exam Narrative Exam: GENERAL: Not in distress HEENT: [Patient is not pale, not jaundiced, not cyanosed.] NECK: [No JVD, no thyroid enlargement and no lymphadenopathy.] CHEST/LUNGS: [Good air exchange bilaterally, no wheeze, no rales and no rhonchi. ] [No chest wall tenderness, percussion is normal, symmetrical chest wall.] HEART/CARDIOVASCULAR: [Regular rate and rhythm, S1 and S2 only, no murmur.] ABDOMEN: [Abdomen is soft, nondistended, no guarding, no rebound tenderness, no masses palpable per abdomen, active bowel sounds.] SKIN: [Warm and dry, no rash.] NEURO: [Awake, alert, oriented x3, speech normal. Power 5/5 in all the extremities.] EXTREMITIES: Bilateral lower extremity BKA - Constitutional Vitals: Vital Signs - 12hr 04/20/16 04/20/16 04/20/16 22:00 23:50 23:53 Temperature Pulse Rate 98 H Pulse Rate [ 98 H Left Brachial] Pulse Rate [ 100 H 98 H Left Radial] Respiratory 16 Rate Blood Pressure 109/68 Blood Pressure 109/68 [Left Arm] O2 Sat by Pulse 100 99 Oximetry 04/20/16 04/21/16 23:58 08:11 Temperature 99.8 F H Pulse Rate 98 H Pulse Rate [ 100 H Left Brachial] Pulse Rate [ Left Radial] Respiratory 22 Rate Blood Pressure 109/68 Blood Pressure 110/70 [Left Arm] O2 Sat by Pulse 98 Oximetry - Labs CBC & Chem 7: 04/18/16 04:33 04/18/16 04:33 Labs: Abnormal lab results 04/20/16 04/20/16 04/21/16 Range/Units 11:58 21:13 04:38 PT 28.3 H (12.2-14.9) Sec. INR 2.64 H (0.87-1.13) POC Glucose 112 H 110 H (70-105) 04/21/16 Range/Units 05:36 PT (12.2-14.9) Sec. INR (0.87-1.13) POC Glucose 118 H (70-105)
[2016-04-21] MEDS: NOVOLOG SUB-Q SCH ×4 (12:00→22:50)
[2016-04-21] MEDS: PROTONIX PO SCH (12:30)
[2016-04-21] MEDS: SENSIPAR PO SCH (12:31)
[2016-04-21] MEDS: COREG PO SCH ×2 (12:33→22:45)
[2016-04-21] MEDS: ALDACTONE PO SCH ×2 (12:34→22:44)
[2016-04-21] MEDS: APRESOLINE PO SCH ×2 (12:34→22:45)
--- NOTE | 2016-04-21 14:51 | Progress Note ---
Assessment and Plan - Patient Problems (1) Amputation of left lower extremity below knee Current Visit: Yes Status: Acute Plan to address problem: Continue physical and occupational therapy (2) Anemia in chronic kidney disease Current Visit: Yes Status: Chronic Plan to address problem: Give erythropoietin on dialysis (3) Diabetes mellitus with peripheral autonomic neuropathy Onset Date: 09/23/15 Current Visit: Yes Status: Chronic Qualifiers: Diabetes mellitus type: type 2 Diabetes mellitus penitentiary insulin use: with penitentiary use Qualified Code(s): E11.43 - Type 2 diabetes mellitus with diabetic autonomic (poly)neuropathy; Z79.4 - emt intermediate (current) use of insulin Plan to address problem: Blood sugar management by primary attending (4) End-stage renal disease Current Visit: Yes Status: Chronic Plan to address problem: Hemodialysis on a Friday, and Friday schedule. Continue nutritional supplement (5) Hypertension associated with stage 5 chronic kidney disease due to type 2 diabetes mellitus Current Visit: No Status: Acute Plan to address problem: Follow-up blood pressure on current medications Subjective Date of service: 04/21/16 Principal diagnosis: DM, Left BKA Interval history: Patient was seen lying in bed. He has no complaints. He is feeling better. Appetite is improving. No nausea or vomiting. No chest pain or shortness of breath Objective - Exam Narrative Exam: Middle-aged -[place] male lying in bed in no acute distress CVS S1-S2 regular rate rhythm without murmur, rub or gallop Chest clear to auscultation Abdomen soft nondistended nontender no organomegaly no bruit bowel sounds present Extremities no edema, bilateral lower extremity amputation Neuro awake, alert oriented x3 no gross deficit - Vital Signs Vital signs: Vital Signs - 12hr 04/21/16 08:11 Temperature 99.8 F H Pulse Rate [ 100 H Left Brachial] Respiratory 22 Rate Blood Pressure 110/70 [Left Arm] O2 Sat by Pulse 98 Oximetry - Lab 04/18/16 04:33 04/18/16 04:33 Most recent lab results Calcium 10.5 mg/dL (8.4-10.2) H 04/18/16 04:33
[2016-04-21] MEDS: COUMADIN PO SCH (18:38)
[2016-04-22 06:31] LABS: INR 2.57 (0.87-1.13)
[2016-04-22] MEDS: APRESOLINE PO SCH ×2 (10:32→22:55)
[2016-04-22] MEDS: RENVELA PO SCH ×3 (10:32→19:20)
[2016-04-22] MEDS: COREG PO SCH ×2 (10:34→22:56)
[2016-04-22] MEDS: PERCOCET 5/325 PO PRN ×2 (10:35→19:52)
[2016-04-22] MEDS: ALDACTONE PO SCH ×2 (10:36→22:56)
[2016-04-22] MEDS: SENSIPAR PO SCH (10:37)
[2016-04-22] MEDS: PROTONIX PO SCH (10:38)
[2016-04-22] MEDS: NOVOLOG SUB-Q SCH ×3 (10:39→22:57)
--- NOTE | 2016-04-22 11:10 | Progress Note ---
Assessment and Plan - Patient Problems (1) Amputation of left lower extremity below knee Current Visit: Yes Status: Acute Plan to address problem: Continue physical and occupational therapy. Vascular surgery follow-up. 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 He has no complaints. He is feeling better. Appetite is improving. No nausea or vomiting. No chest pain or shortness of breath Objective - Exam Narrative Exam: Middle-aged -Maltese male lying in bed in no acute distress CVS S1-S2 regular rate rhythm without murmur, rub or gallop Chest clear to auscultation Abdomen soft nondistended nontender no organomegaly no bruit bowel sounds present Extremities no edema, bilateral lower extremity amputation Neuro awake, alert oriented x3 no gross deficit - Vital Signs Vital signs: Vital Signs - 12hr 04/22/16 04/22/16 04/22/16 08:00 10:34 10:36 Temperature 98 F Pulse Rate [ 95 H Left Brachial] Respiratory 20 Rate Blood Pressure 119/80 119/80 Blood Pressure 119/80 [Left Arm] O2 Sat by Pulse 100 Oximetry - Lab 04/18/16 04:33 04/18/16 04:33 Most recent lab results Calcium 10.5 mg/dL (8.4-10.2) H 04/18/16 04:33
--- NOTE | 2016-04-22 16:14 | Progress Note ---
Assessment and Plan 60 y.o. male s/p left BKA, now bilateral amputee - s/p left BKA- [facility]; pain controlled - HTN- stable - DM- controlled with ADA, not requiring SSI - ESRD- Nephrology following; continue on HD, TTS - Afib- INR remains therapeutic, rate controlled - history of right BKA - depression- adjustment disorder due to now being a bilateral amputee; no medications recommended by Psych - Patient Problems (1) Atherosclerotic peripheral vascular disease with gangrene Onset Date: 09/28/15 Current Visit: Yes Status: Acute (2) Amputation of left lower extremity below knee Current Visit: Yes Status: Acute (3) A-fib Onset Date: 09/28/15 Current Visit: Yes Status: Chronic Qualifiers: Atrial fibrillation type: chronic Qualified Code(s): I48.2 - Chronic atrial fibrillation (4) Diabetes mellitus with peripheral autonomic neuropathy Onset Date: 09/23/15 Current Visit: Yes Status: Chronic Qualifiers: Diabetes mellitus type: type 2 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: with custodial use Qualified Code(s): E11.43 - Type 2 diabetes mellitus with diabetic autonomic (poly)neuropathy; Z79.4 - custodial (current) use of insulin (5) End-stage renal disease Onset Date: 09/23/15 Current Visit: Yes Status: Chronic (6) HTN (hypertension) Current Visit: Yes Status: Chronic Qualifiers: Hypertension type: essential hypertension Qualified Code(s): I10 - Essential (primary) hypertension (7) Depression (emotion) Current Visit: Yes Status: Acute Qualifiers: Depression Type: D Major depression recurrence: M Active/Remission status : A Major depression episode severity: M Psychotic features: P Trimester: T (8) Complete below knee amputation of right lower extremity Onset Date: 09/23/15 Current Visit: No Status: Acute Qualifiers: Encounter type: E Subjective Date of service: 04/22/16 Principal diagnosis: Left BKA Interval history: Pt seen in room this AM, F/U IPR course, left BKA, now bilateral amputee. Improved mental status, now off Neurontin; pain controlled Objective - Constitutional Vitals: Vital Signs - 12hr 04/22/16 04/22/16 04/22/16 08:00 10:34 10:36 Temperature 98 F Pulse Rate [ 95 H Left Brachial] Respiratory 20 Rate Blood Pressure 119/80 119/80 Blood Pressure 119/80 [Left Arm] O2 Sat by Pulse 100 Oximetry General appearance: Present: no acute distress, other (sitting up in ; transferred from to bed with supervision) - EENT Eyes: EOM intact ENT: hearing intact - Neck Neck: supple, normal ROM - Respiratory Respiratory effort: normal Respiratory: bilateral: CTA - Cardiovascular Rhythm: regular Heart Sounds: Present: S1 & S2 Extremity abnormal: other ([place] in place to [facility]) - Gastrointestinal General gastrointestinal: Present: soft, non-tender, non-distended, normal bowel sounds - Neurologic Neurologic: CNII-XII intact, moves all extremities - Psychiatric Psychiatric: appropriate mood/affect, intact judgment & insight, memory intact, cooperative - Allied health notes Allied health notes reviewed: OT (supervision with transfers; Rosa for WC mobility) - Labs CBC & Chem 7: 04/18/16 04:33 04/18/16 04:33 Labs: Abnormal lab results 04/21/16 04/21/16 04/22/16 Range/Units 17:22 21:54 05:47 PT 27.7 H (12.2-14.9) Sec. INR 2.57 H (0.87-1.13) POC Glucose 131 H 113 H (70-105) 04/22/16 Range/Units 12:04 PT (12.2-14.9) Sec. INR (0.87-1.13) POC Glucose 130 H (70-105)
[2016-04-22] MEDS: COUMADIN PO SCH (19:11)
--- NOTE | 2016-04-22 22:07 | Progress Note ---
Assessment and Plan 1. DM: controlled. On with insulin therapy, Consistent 2000 ADA diet 2. Left BKA: Doing well with occasional phantom pain. Prior left BKA. continue with PT/OT 3. ESRD on HD on , , and Sat. Nephrology following 4. Leukocytosis: No fever. Trend 5. Afib: Rate controlled. anticoagulated 6. HTN: getting low. Hold off on hydrallazin to avoid Orthostasis with PT. 7. DVT ppx with lovenox and GI with pepcid Subjective Date of service: 04/22/16 Principal diagnosis: Left BKA Interval history: Sitting with OT staff having OT. Objective - Constitutional Vitals: Vital Signs - 12hr 04/22/16 04/22/16 04/22/16 10:34 10:36 16:00 Temperature 97.6 F Pulse Rate [ 102 H Left Brachial] Respiratory 20 Rate Blood Pressure 119/80 119/80 Blood Pressure 108/75 [Left Arm] O2 Sat by Pulse 99 Oximetry 04/22/16 04/22/16 19:52 20:00 Temperature 97.0 F L Pulse Rate [ 106 H Left Brachial] Respiratory 20 20 Rate Blood Pressure Blood Pressure 108/69 [Left Arm] O2 Sat by Pulse 98 Oximetry General appearance: Present: no acute distress - EENT Eyes: PERRL - Neck Neck: supple - Cardiovascular Rhythm: regular Extremities: no ischemia, No edema - Gastrointestinal General gastrointestinal: Present: soft, non-tender, non-distended - Labs CBC & Chem 7: 04/18/16 04:33 04/18/16 04:33 Labs: Abnormal lab results 04/21/16 04/22/16 04/22/16 Range/Units 21:54 05:47 12:04 PT 27.7 H (12.2-14.9) Sec. INR 2.57 H (0.87-1.13) POC Glucose 113 H 130 H (70-105) 04/22/16 Range/Units 21:23 PT (12.2-14.9) Sec. INR (0.87-1.13) POC Glucose 108 H (70-105)
[2016-04-22] MEDS: COLACE PO SCH (22:57)
[2016-04-23 05:11] LABS: Hematocrit 29.8 % (35.5-45.6); Hemoglobin 9.5 gm/dl (11.8-15.2); Mean Corpuscular HGB Conc 32 % (32-34); Mean Corpuscular Hemoglobin 28 pg (28-32); Mean Corpuscular Volume 88 fl (84-94); Platelet Count 636 K/mm3 (140-440); White Blood Count 16.9 K/mm3 (4.5-11.0)
[2016-04-23 05:15] LABS: Red Cell Distribution Width 24.2 % (13.2-15.2)
[2016-04-23 05:21] LABS: INR 2.19 (0.87-1.13)
[2016-04-23 05:24] LABS: BUN/Creatinine Ratio 5.91; Calcium 10.6 mg/dL (8.4-10.2); Chloride 91.8 mmol/L (98-107); Potassium 4.6 mmol/L (3.6-5.0)
[2016-04-23] MEDS: APRESOLINE PO SCH (08:00)
[2016-04-23] MEDS: PROTONIX PO SCH (08:00)
[2016-04-23] MEDS: COREG PO SCH ×2 (08:00→20:25)
[2016-04-23] MEDS: ALDACTONE PO SCH ×2 (08:00→22:22)
[2016-04-23] MEDS: COLACE PO SCH ×2 (08:00→22:25)
[2016-04-23] MEDS: RENVELA PO SCH ×3 (08:40→20:14)
[2016-04-23] MEDS: SENSIPAR PO SCH (08:40)
[2016-04-23] MEDS: NOVOLOG SUB-Q SCH ×3 (08:42→22:21)
[2016-04-23] MEDS: PERCOCET 5/325 PO PRN ×2 (09:50→15:36)
[2016-04-23] MEDS ORDERED: NACL 0.9 (PRIMING MACHINE ONLY DIALYSIS) MC ONE (15:31)
--- NOTE | 2016-04-23 16:58 | Progress Note ---
Assessment and Plan (1) Amputation of left lower extremity below knee Current Visit: Yes Status: Acute Plan to address problem: Continue physical and occupational therapy. Vascular surgery follow-up. Pain management (2) Anemia in chronic kidney disease Current Visit: Yes Status: Chronic Plan to address problem: Give erythropoietin on dialysis (3) Diabetes mellitus with peripheral autonomic neuropathy Onset Date: 09/23/15 Current Visit: Yes Status: Chronic Qualifiers: Diabetes mellitus type: type 2 Diabetes mellitus jail insulin use: with terminal clerk use Qualified Code(s): E11.43 - Type 2 diabetes mellitus with diabetic autonomic (poly)neuropathy; Z79.4 - half-way (current) use of insulin Plan to address problem: Blood sugar management by primary attending (4) End-stage renal disease Current Visit: Yes Status: Chronic Plan to address problem: Hemodialysis on a Friday, and Friday schedule. Continue nutritional supplement (5) Hypertension associated with stage 5 chronic kidney disease due to type 2 diabetes mellitus Current Visit: No Status: Acute Plan to address problem: Follow-up blood pressure on current medications Subjective Date of service: 04/23/16 Principal diagnosis: DM, Left BKA Interval history: Pt seen in dialysis, c/o phantom pain to left stump tolerating dialysis well, denies N/V, cramping, SOB, CP Objective - Exam Narrative Exam: Middle-aged -Swedish male lying in bed on dialysis in no acute distress CVS S1-S2 regular rate rhythm without murmur, rub or gallop Chest clear to auscultation Abdomen soft nondistended nontender no organomegaly no bruit bowel sounds present Extremities no edema, bilateral BKA Neuro awake, alert oriented x3 no gross deficit - Vital Signs Vital signs: Vital Signs - 12hr 04/23/16 04/23/16 04/23/16 08:00 14:45 15:00 Temperature 100.6 F H 98.4 F Pulse Rate 83 78 Pulse Rate [ 95 H Left Brachial] Respiratory 20 20 Rate Blood Pressure 91/66 82/62 Blood Pressure 100/67 [Left Arm] O2 Sat by Pulse 95 Oximetry 04/23/16 04/23/16 04/23/16 15:15 15:30 15:36 Temperature Pulse Rate 102 H 94 H Pulse Rate [ Left Brachial] Respiratory 20 Rate Blood Pressure 73/55 95/69 Blood Pressure [Left Arm] O2 Sat by Pulse Oximetry 04/23/16 04/23/16 04/23/16 15:45 16:00 16:15 Temperature Pulse Rate 100 H 116 H 91 H Pulse Rate [ Left Brachial] Respiratory Rate Blood Pressure 83/54 84/54 86/66 Blood Pressure [Left Arm] O2 Sat by Pulse Oximetry 04/23/16 16:30 Temperature Pulse Rate 116 H Pulse Rate [ Left Brachial] Respiratory Rate Blood Pressure 89/78 Blood Pressure [Left Arm] O2 Sat by Pulse Oximetry - Lab 04/23/16 04:33 04/23/16 04:33 Most recent lab results Calcium 10.6 mg/dL (8.4-10.2) H 04/23/16 04:33
--- NOTE | 2016-04-23 17:03 | Progress Note ---
Assessment and Plan 60 y.o. male s/p left BKA, now bilateral amputee - s/p left BKA- [facility]; pain controlled; will attempt to utilize right prosthesis for transfers; may require hyperbaric referral for wound healing after discharge - fever- leukocytosis also noted on AM labs; will change pain med from percocet to oxycodone and follow for recurrent temp; mild odor and drainage noted from wound this AM; follow closely - HTN- low blood pressure noted this afternoon; will adjust meds, follow closely - DM- controlled with ADA, not requiring SSI - ESRD- Nephrology following; continue on HD, TTS - Afib- INR remains therapeutic, rate controlled - history of right BKA - depression- adjustment disorder due to now being a bilateral amputee; no medications recommended by Psych - dispo- patient continues to require assistance with transfers and self cares; will extend course to allow for ongoing therapies to address deficits; also for ongoing medical management of hypotension, fever, wound - Patient Problems (1) Atherosclerotic peripheral vascular disease with gangrene Onset Date: 09/28/15 Current Visit: Yes Status: Acute (2) Amputation of left lower extremity below knee Current Visit: Yes Status: Acute (3) A-fib Onset Date: 09/28/15 Current Visit: Yes Status: Chronic Qualifiers: Atrial fibrillation type: chronic Qualified Code(s): I48.2 - Chronic atrial fibrillation (4) Diabetes mellitus with peripheral autonomic neuropathy Onset Date: 09/23/15 Current Visit: Yes Status: Chronic Qualifiers: Diabetes mellitus type: type 2 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 Qualified Code(s): E11.43 - Type 2 diabetes mellitus with diabetic autonomic (poly)neuropathy; Z79.4 - jail (current) use of insulin (5) End-stage renal disease Onset Date: 09/23/15 Current Visit: Yes Status: Chronic (6) HTN (hypertension) Current Visit: Yes Status: Chronic Qualifiers: Hypertension type: essential hypertension Qualified Code(s): I10 - Essential (primary) hypertension (7) Depression (emotion) Current Visit: Yes Status: Acute Qualifiers: Depression Type: D Major depression recurrence: M Active/Remission status : A Major depression episode severity: M Psychotic features: P Trimester: T (8) Complete below knee amputation of right lower extremity Onset Date: 09/23/15 Current Visit: No Status: Acute Qualifiers: Encounter type: E Subjective Date of service: 04/23/16 Principal diagnosis: Left BKA Interval history: Pt seen in PT gym this AM, F/U IPR course, left BKA, now bilateral amputee. Pain controlled; continues with flat affect Objective - Constitutional Vitals: Vital Signs - 12hr 04/23/16 04/23/16 04/23/16 08:00 14:45 15:00 Temperature 100.6 F H 98.4 F Pulse Rate 83 78 Pulse Rate [ 95 H Left Brachial] Respiratory 20 20 Rate Blood Pressure 91/66 82/62 Blood Pressure 100/67 [Left Arm] O2 Sat by Pulse 95 Oximetry 04/23/16 04/23/16 04/23/16 15:15 15:30 15:36 Temperature Pulse Rate 102 H 94 H Pulse Rate [ Left Brachial] Respiratory 20 Rate Blood Pressure 73/55 95/69 Blood Pressure [Left Arm] O2 Sat by Pulse Oximetry 04/23/16 04/23/16 04/23/16 15:45 16:00 16:15 Temperature Pulse Rate 100 H 116 H 91 H Pulse Rate [ Left Brachial] Respiratory Rate Blood Pressure 83/54 84/54 86/66 Blood Pressure [Left Arm] O2 Sat by Pulse Oximetry 04/23/16 16:30 Temperature Pulse Rate 116 H Pulse Rate [ Left Brachial] Respiratory Rate Blood Pressure 89/78 Blood Pressure [Left Arm] O2 Sat by Pulse Oximetry General appearance: Present: no acute distress, other (lying on mat with PT) - EENT Eyes: EOM intact ENT: hearing intact - Neck Neck: supple, normal ROM - Respiratory Respiratory effort: normal Extremity abnormal: other (dressing removed from left residual limb- areas of necrosis noted along incision line, mild odor and drainage also noted; good ROM at the knee) - Neurologic Neurologic: CNII-XII intact, moves all extremities - Allied health notes Allied health notes reviewed: PT (min-modA for sliding board transfers) - Labs CBC & Chem 7: 04/23/16 04:33 04/23/16 04:33 Labs: Abnormal lab results 04/22/16 04/23/16 04/23/16 Range/Units 21:23 04:33 04:33 WBC 16.9 H (4.5-11.0) K/mm3 RBC 3.40 L (3.65-5.03) M/mm3 Hgb 9.5 L (11.8-15.2) gm/dl Hct 29.8 L (35.5-45.6) % RDW 24.2 H (13.2-15.2) % Plt Count 636 H (140-440) K/mm3 PT 24.4 H (12.2-14.9) Sec. INR 2.19 H (0.87-1.13) Sodium (137-145) mmol/L Chloride (98-107) mmol/L BUN (9-20) mg/dL Creatinine (0.8-1.5) mg/dL Glucose (75-100) mg/dL POC Glucose 108 H (70-105) Calcium (8.4-10.2) mg/dL 04/23/16 04/23/16 Range/Units 04:33 11:30 WBC (4.5-11.0) K/mm3 RBC (3.65-5.03) M/mm3 Hgb (11.8-15.2) gm/dl Hct (35.5-45.6) % RDW (13.2-15.2) % Plt Count (140-440) K/mm3 PT (12.2-14.9) Sec. INR (0.87-1.13) Sodium 131 L (137-145) mmol/L Chloride 91.8 L (98-107) mmol/L BUN 42 H (9-20) mg/dL Creatinine 7.1 H (0.8-1.5) mg/dL Glucose 109 H (75-100) mg/dL POC Glucose 123 H (70-105) Calcium 10.6 H (8.4-10.2) mg/dL
[2016-04-23] MEDS: HEPARIN IV PRN (17:50)
[2016-04-23] MEDS ORDERED: APRESOLINE PO SCH (18:00)
--- NOTE | 2016-04-23 18:14 | Progress Note ---
Assessment and Plan 1. DM: Continue with insulin therapy, Consistent 2000 ADA diet 2. Left BKA: Now BKA. Wound in the left BKA look infected per wound care nurse. Wound cultre and commence antibx with perissitne Leukocytosis. continue with PT/ OT 3. ESRD on HD on T, , and Sat. Nephrology following 4. Leukocytosis: Reactive post op. No fever. Trend 5. Afib: Rate controlled. anticoagulated 6. HTN: getting low. D/C hydrallazin to avoid Orthostasis with PT. 7. DVT ppx with lovenox and GI with pepcid Subjective Date of service: 04/23/16 Principal diagnosis: Left BKA Interval history: No new complaint. still depressed. D/w woundcare nurse who stated vinay wound in [place] left stump look infected Objective - Constitutional Vitals: Vital Signs - 12hr 04/23/16 04/23/16 04/23/16 08:00 14:45 15:00 Temperature 100.6 F H 98.4 F Pulse Rate 83 78 Pulse Rate [ 95 H Left Brachial] Respiratory 20 20 Rate Blood Pressure 91/66 82/62 Blood Pressure 100/67 [Left Arm] O2 Sat by Pulse 95 Oximetry 04/23/16 04/23/16 04/23/16 15:15 15:30 15:36 Temperature Pulse Rate 102 H 94 H Pulse Rate [ Left Brachial] Respiratory 20 Rate Blood Pressure 73/55 95/69 Blood Pressure [Left Arm] O2 Sat by Pulse Oximetry 04/23/16 04/23/16 04/23/16 15:45 16:00 16:15 Temperature Pulse Rate 100 H 116 H 91 H Pulse Rate [ Left Brachial] Respiratory Rate Blood Pressure 83/54 84/54 86/66 Blood Pressure [Left Arm] O2 Sat by Pulse Oximetry 04/23/16 04/23/16 04/23/16 16:30 16:45 17:00 Temperature Pulse Rate 116 H 95 H 103 H Pulse Rate [ Left Brachial] Respiratory Rate Blood Pressure 89/78 103/65 103/65 Blood Pressure [Left Arm] O2 Sat by Pulse Oximetry 04/23/16 04/23/16 04/23/16 17:15 17:30 17:45 Temperature Pulse Rate 103 H 97 H 94 H Pulse Rate [ Left Brachial] Respiratory Rate Blood Pressure 100/67 80/55 96/65 Blood Pressure [Left Arm] O2 Sat by Pulse Oximetry General appearance: Present: no acute distress - EENT Eyes: PERRL - Neck Neck: supple - Respiratory Respiratory effort: normal Respiratory: right: CTA - Cardiovascular Rhythm: regular Heart Sounds: Present: S1 & S2 Extremities: no ischemia - Gastrointestinal General gastrointestinal: Present: soft, non-tender - Integumentary Integumentary: clear, warm - Musculoskeletal Musculoskeletal: strength equal bilaterally - Neurologic Neurologic: CNII-XII intact - Psychiatric Psychiatric: appropriate mood/affect - Labs CBC & Chem 7: 04/23/16 04:33 04/23/16 04:33 Labs: Abnormal lab results 04/22/16 04/23/16 04/23/16 Range/Units 21:23 04:33 04:33 WBC 16.9 H (4.5-11.0) K/mm3 RBC 3.40 L (3.65-5.03) M/mm3 Hgb 9.5 L (11.8-15.2) gm/dl Hct 29.8 L (35.5-45.6) % RDW 24.2 H (13.2-15.2) % Plt Count 636 H (140-440) K/mm3 PT 24.4 H (12.2-14.9) Sec. INR 2.19 H (0.87-1.13) Sodium (137-145) mmol/L Chloride (98-107) mmol/L BUN (9-20) mg/dL Creatinine (0.8-1.5) mg/dL Glucose (75-100) mg/dL POC Glucose 108 H (70-105) Calcium (8.4-10.2) mg/dL 04/23/16 04/23/16 Range/Units 04:33 11:30 WBC (4.5-11.0) K/mm3 RBC (3.65-5.03) M/mm3 Hgb (11.8-15.2) gm/dl Hct (35.5-45.6) % RDW (13.2-15.2) % Plt Count (140-440) K/mm3 PT (12.2-14.9) Sec. INR (0.87-1.13) Sodium 131 L (137-145) mmol/L Chloride 91.8 L (98-107) mmol/L BUN 42 H (9-20) mg/dL Creatinine 7.1 H (0.8-1.5) mg/dL Glucose 109 H (75-100) mg/dL POC Glucose 123 H (70-105) Calcium 10.6 H (8.4-10.2) mg/dL
[2016-04-23] MEDS ORDERED: ROCEPHIN 500 MG in NACL 0.9% 50 ML IV ONE (19:30)
[2016-04-23] MEDS: COUMADIN PO SCH (20:12)
[2016-04-24] MEDS: NOVOLOG SUB-Q SCH ×5 (03:01→22:00)
[2016-04-24 05:21] LABS: INR 2.26 (0.87-1.13)
[2016-04-24] MEDS: COREG PO SCH ×3 (09:45→20:50)
[2016-04-24] MEDS: SENSIPAR PO SCH (09:46)
[2016-04-24] MEDS: RENVELA PO SCH ×3 (09:47→17:17)
[2016-04-24] MEDS: ROXICODONE PO PRN ×2 (09:47→20:47)
[2016-04-24] MEDS: ALDACTONE PO SCH ×2 (09:50→23:16)
[2016-04-24] MEDS: PROTONIX PO SCH (09:51)
[2016-04-24] MEDS: COLACE PO SCH ×2 (09:51→23:17)
[2016-04-24] MEDS: ROCEPHIN/NS 1 GM/50 ML 1 GM/50 ML BAG IV SCH (10:00)
--- NOTE | 2016-04-24 12:37 | Progress Note ---
Assessment and Plan (1) Amputation of left lower extremity below knee Current Visit: Yes Status: Acute Plan to address problem: Continue physical and occupational therapy. Vascular surgery follow-up. 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 Continue nutritional supplement (5) Hypertension associated with stage 5 chronic kidney disease due to type 2 diabetes mellitus Current Visit: No Status: Acute Plan to address problem: Follow-up blood pressure on current medications Subjective Principal diagnosis: Left BKA Interval history: Pt seen in room sitting in w/c reports pressure areas to left BKA, discussed going home at the end of the week. Objective - Exam Narrative Exam: Middle-aged -[place] male lying in bed on dialysis in no acute distress CVS S1-S2 regular rate rhythm without murmur, rub or gallop Chest clear to auscultation Abdomen soft nondistended nontender no organomegaly no bruit bowel sounds present Extremities no edema, bilateral BKA Neuro awake, alert oriented x3 no gross deficit - Vital Signs Vital signs: Vital Signs - 12hr 04/24/16 04/24/16 04/24/16 08:46 09:45 09:50 Temperature 98.8 F Pulse Rate 86 86 Pulse Rate [ 86 Left Brachial] Respiratory 20 Rate Blood Pressure 116/78 116/78 Blood Pressure 116/78 [Left Arm] O2 Sat by Pulse 100 Oximetry - Lab 04/23/16 04:33 04/23/16 04:33 Most recent lab results Calcium 10.6 mg/dL (8.4-10.2) H 04/23/16 04:33
--- NOTE | 2016-04-24 15:39 | Event Note ---
Date: 04/24/16 Patient seen and examined. I reviewed above PAPER MILL MANAGER notes which I agree with. Assessment and Plan discussed earlier. Patient concerned on discharge he would have to be getting dialysis, wound care/hyperbaric oxygen couple of times a week and also going for outpatient physical therapy. Concerned about the logistics of getting from one to the other. Need manager staffing to help arrange this.
[2016-04-24] MEDS: COUMADIN PO SCH (17:17)
--- NOTE | 2016-04-24 17:29 | Progress Note ---
Assessment and Plan 60 y.o. male s/p left BKA, now bilateral amputee - s/p left BKA- hold off wearing Ampushield for now due to residual limb wound changes; pain controlled; attempted to utilize right prosthesis for transfers, however, pt reported pain and required modAx2; will need hyperbaricsl for wound healing after discharge - fever- no further fever; follow-up lasb in AM - HTN- stable - DM- stable - ESRD- Nephrology following; continue on HD, TTS - Afib- INR remains therapeutic, rate controlled - history of right BKA - dispo- pending d/c with increasing independence with transfers as pt will be home alone at discharge - Patient Problems (1) Atherosclerotic peripheral vascular disease with gangrene Onset Date: 09/28/15 Current Visit: Yes Status: Acute (2) Amputation of left lower extremity below knee Current Visit: Yes Status: Acute (3) A-fib Onset Date: 09/28/15 Current Visit: Yes Status: Chronic Qualifiers: Atrial fibrillation type: chronic Qualified Code(s): I48.2 - Chronic atrial fibrillation (4) Diabetes mellitus with peripheral autonomic neuropathy Onset Date: 09/23/15 Current Visit: Yes Status: Chronic Qualifiers: Diabetes mellitus type: type 2 Diabetes mellitus mcfp insulin use: with marine oil terminal superintendent use Qualified Code(s): E11.43 - Type 2 diabetes mellitus with diabetic autonomic (poly)neuropathy; Z79.4 - petroleum terminal plant operator (current) use of insulin (5) End-stage renal disease Onset Date: 09/23/15 Current Visit: Yes Status: Chronic (6) HTN (hypertension) Current Visit: Yes Status: Chronic Qualifiers: Hypertension type: essential hypertension Qualified Code(s): I10 - Essential (primary) hypertension (7) Depression (emotion) Current Visit: Yes Status: Acute Qualifiers: Depression Type: D Major depression recurrence: M Active/Remission status : A Major depression episode severity: M Psychotic features: P Trimester: T (8) Complete below knee amputation of right lower extremity Onset Date: 09/23/15 Current Visit: No Status: Acute Qualifiers: Encounter type: E Subjective Date of service: 04/24/16 Principal diagnosis: Left BKA Interval history: Pt seen in room this AM, F/U IPR course, left BKA, now bilateral amputee. Seen with wound care nurse on this morning; noted to have necrosis and bruising at left residual limb; will hold off on wearing Ampushield at this time Objective - Constitutional Vitals: Vital Signs - 12hr 04/24/16 04/24/16 04/24/16 08:46 09:45 09:50 Temperature 98.8 F Pulse Rate 86 86 Pulse Rate [ 86 Left Brachial] Respiratory 20 Rate Blood Pressure 116/78 116/78 Blood Pressure 116/78 [Left Arm] O2 Sat by Pulse 100 Oximetry General appearance: Present: no acute distress, other (sitting up in bed) - EENT Eyes: EOM intact ENT: hearing intact - Neck Neck: supple, normal ROM - Respiratory Respiratory effort: normal - Neurologic Neurologic: CNII-XII intact, moves all extremities - Psychiatric Psychiatric: cooperative, depressed - Allied health notes Allied health notes reviewed: PT (modA x2 for sit to stand transfers with right prosthesis; CGA-Nicolle for sliding board transfers), OT (CGA-Nicolle for sliding board transfers) - Labs CBC & Chem 7: 04/23/16 04:33 04/23/16 04:33 Labs: Abnormal lab results 04/23/16 04/24/16 04/24/16 Range/Units 21:52 04:47 12:32 PT 25.0 H (12.2-14.9) Sec. INR 2.26 H (0.87-1.13) POC Glucose 113 H 141 H (70-105)
--- NOTE | 2016-04-24 19:54 | Progress Note ---
Assessment and Plan 1. DM: Continue with insulin therapy, Consistent 2000 ADA diet 2. Left BKA: Now BKA. Wound in the left BKA look infected per wound care nurse. Wound culture and commence antibx with perissitne Leukocytosis. continue with PT /OT 3. ESRD on HD on T, , and Sat. Nephrology following 4. Leukocytosis: Reactive post op. No fever. Trend 5. Afib: Rate controlled. anticoagulated 6. HTN: getting low. D/C hydrallazin to avoid Orthostasis with PT. 7. DVT ppx with lovenox and GI with pepcid Subjective Date of service: 04/24/16 Principal diagnosis: Left BKA with wound infection Interval history: No new complaints. Infected left stump wound per nurse. Wound care was contacted Objective - Constitutional Vitals: Vital Signs - 12hr 04/24/16 04/24/16 04/24/16 08:46 09:45 09:50 Temperature 98.8 F Pulse Rate 86 86 Pulse Rate [ 86 Left Brachial] Respiratory 20 Rate Blood Pressure 116/78 116/78 Blood Pressure 116/78 [Left Arm] O2 Sat by Pulse 100 Oximetry General appearance: Present: no acute distress - EENT Eyes: PERRL - Neck Neck: supple - Respiratory Respiratory: bilateral: CTA - Breasts Breasts: deferred - Cardiovascular Rhythm: regular Extremities: no ischemia Extremity abnormal: other - Gastrointestinal General gastrointestinal: Present: soft, non-tender, non-distended - Musculoskeletal Musculoskeletal: other (bilateral below-knee amputation) - Neurologic Neurologic: CNII-XII intact - Psychiatric Psychiatric: appropriate mood/affect - Labs CBC & Chem 7: 04/23/16 04:33 04/23/16 04:33 Labs: Abnormal lab results 04/23/16 04/24/16 04/24/16 Range/Units 21:52 04:47 12:32 PT 25.0 H (12.2-14.9) Sec. INR 2.26 H (0.87-1.13) POC Glucose 113 H 141 H (70-105)
[2016-04-25 06:30] LABS: Hematocrit 26.7 % (35.5-45.6); Hemoglobin 8.1 gm/dl (11.8-15.2); Mean Corpuscular HGB Conc 31 % (32-34); Mean Corpuscular Hemoglobin 28 pg (28-32); Platelet Count 498 K/mm3 (140-440); Red Blood Count 2.91 M/mm3 (3.65-5.03); White Blood Count 12.3 K/mm3 (4.5-11.0)
[2016-04-25 06:35] LABS: Red Cell Distribution Width 24.7 % (13.2-15.2)
[2016-04-25 06:36] LABS: Mean Corpuscular Volume 90 fl (84-94)
[2016-04-25 06:43] LABS: BUN/Creatinine Ratio 6.94; Calcium 10.3 mg/dL (8.4-10.2); Chloride 95.9 mmol/L (98-107); Potassium 4.3 mmol/L (3.6-5.0)
[2016-04-25 06:58] LABS: INR 2.6 (0.87-1.13)
[2016-04-25] MEDS: NOVOLOG SUB-Q SCH ×4 (07:30→23:03)
[2016-04-25] MEDS: ROXICODONE PO PRN ×3 (10:00→22:26)
[2016-04-25] MEDS: ALDACTONE PO SCH ×2 (10:02→23:01)
[2016-04-25] MEDS: COREG PO SCH ×2 (10:03→23:02)
[2016-04-25] MEDS: SENSIPAR PO SCH (10:04)
[2016-04-25] MEDS: PROTONIX PO SCH (10:05)
[2016-04-25] MEDS: RENVELA PO SCH ×3 (10:05→17:11)
[2016-04-25] MEDS: ROCEPHIN/NS 1 GM/50 ML 1 GM/50 ML BAG IV SCH (10:06)
[2016-04-25] MEDS: COLACE PO SCH ×2 (10:06→21:30)
--- NOTE | 2016-04-25 12:11 | Progress Note ---
Assessment and Plan - Patient Problems (1) Amputation of left lower extremity below knee Current Visit: Yes Status: Acute Plan to address problem: Continue physical and occupational therapy. Vascular surgery follow-up. (2) Anemia in chronic kidney disease Current Visit: Yes Status: Chronic Plan to address problem: Give erythropoietin on dialysis (3) Diabetes mellitus with peripheral autonomic neuropathy Onset Date: 09/23/15 Current Visit: Yes Status: Chronic Qualifiers: Diabetes mellitus type: type 2 Diabetes mellitus usp insulin use: with superintendent container terminal use Qualified Code(s): E11.43 - Type 2 diabetes mellitus with diabetic autonomic (poly)neuropathy; Z79.4 - terminal system operator (current) use of insulin Plan to address problem: Blood sugar management by primary attending (4) End-stage renal disease Current Visit: Yes Status: Chronic Plan to address problem: Hemodialysis on a Friday, and Friday schedule. Continue nutritional supplement (5) Hypertension associated with stage 5 chronic kidney disease due to type 2 diabetes mellitus Current Visit: No Status: Acute Plan to address problem: Follow-up blood pressure on current medications Subjective Date of service: 04/25/16 Principal diagnosis: Left BKA Interval history: Patient was seen lying in bed. He has no complaints. He is undergoing physical therapy. No nausea or vomiting. No chest pain or shortness of breath Objective - Exam Narrative Exam: Middle-aged -[place]ish male lying in bed in no acute distress CVS S1-S2 regular rate rhythm without murmur, rub or gallop Chest clear to auscultation Abdomen soft nondistended nontender no organomegaly no bruit bowel sounds present Extremities no edema, bilateral lower extremity amputation Neuro awake, alert oriented x3 no gross deficit - Vital Signs Vital signs: Vital Signs - 12hr 04/25/16 04/25/16 10:02 10:03 Pulse Rate 99 H 99 H Blood Pressure 136/80 136/80 - Lab 04/25/16 04:23 04/25/16 04:12 Most recent lab results Calcium 10.3 mg/dL (8.4-10.2) H 04/25/16 04:12
--- NOTE | 2016-04-25 13:55 | Progress Note ---
Assessment and Plan 60 y.o. male s/p left BKA, now bilateral amputee - s/p left BKA- pain controlled; continue to hold Ampushield; wound care following; remains afebrile, leukocytosis resolving - HTN/DM- well controlled - ESRD- Nephrology following; continue on HD, TTS - Afib- INR remains therapeutic, rate controlled - history of right BKA - team conference held on today- at last conference (04/18/2016), pt was Rosa for eating; supervision for grooming, bathing, dressing; maxA for toileting and toilet transfer, Nicolle for shower transfer; modA for bed mobility, Bed/chair/WC transfers; Rosa for wheelchair mobility. On today, pt has progressed to Independent for eating, Rosa for grooming and bed mobility, SBA for bathing/ dressing, rear scoot transfers; modA for toilet transfers. Pt remains maxA for toileting; CGA for ramp. Barrier- ongoing depression, decreased endurance. Anticipate d/c home on 04/29 - Patient Problems (1) Atherosclerotic peripheral vascular disease with gangrene Onset Date: 09/28/15 Current Visit: Yes Status: Acute (2) Amputation of left lower extremity below knee Current Visit: Yes Status: Acute (3) A-fib Onset Date: 09/28/15 Current Visit: Yes Status: Chronic Qualifiers: Atrial fibrillation type: chronic Qualified Code(s): I48.2 - Chronic atrial fibrillation (4) Diabetes mellitus with peripheral autonomic neuropathy Onset Date: 09/23/15 Current Visit: Yes Status: Chronic Qualifiers: Diabetes mellitus type: type 2 Diabetes mellitus detention insulin use: with intermediate school teacher use Qualified Code(s): E11.43 - Type 2 diabetes mellitus with diabetic autonomic (poly)neuropathy; Z79.4 - FDC (current) use of insulin (5) End-stage renal disease Onset Date: 09/23/15 Current Visit: Yes Status: Chronic (6) HTN (hypertension) Current Visit: Yes Status: Chronic Qualifiers: Hypertension type: essential hypertension Qualified Code(s): I10 - Essential (primary) hypertension (7) Complete below knee amputation of right lower extremity Onset Date: 09/23/15 Current Visit: No Status: Acute Qualifiers: Encounter type: E Subjective Date of service: 03/16/17 Principal diagnosis: Left BKA Interval history: Pt seen in room this AM, F/U IPR course, left BKA, now bilateral amputee. Observed patient attempt toilet transfer from on this AM; pt continues to have difficulty with board placement and actual sliding task; requires verbal cues and assistance for safety Objective - Constitutional Vitals: Vital Signs - 12hr 04/25/16 04/25/16 04/25/16 08:40 10:02 10:03 Temperature 98.6 F Pulse Rate 99 H 99 H Pulse Rate [ 99 H Left Radial] Respiratory 18 Rate Blood Pressure 136/80 136/80 Blood Pressure 136/80 [Left Arm] O2 Sat by Pulse 100 Oximetry General appearance: Present: no acute distress - EENT Eyes: EOM intact ENT: hearing intact - Neck Neck: supple, normal ROM - Respiratory Respiratory effort: normal - Musculoskeletal Musculoskeletal: generalized weakness (decreased UE strength to allow for full pushup on WC during transfers) - Neurologic Neurologic: CNII-XII intact - Psychiatric Psychiatric: cooperative (flat affect) - Labs CBC & Chem 7: 04/25/16 04:23 04/25/16 04:12 Labs: Abnormal lab results 04/25/16 04/25/16 04/25/16 Range/Units 04:12 04:17 04:23 WBC 12.3 H (4.5-11.0) K/mm3 RBC 2.91 L (3.65-5.03) M/mm3 Hgb 8.1 L (11.8-15.2) gm/dl Hct 26.7 L (35.5-45.6) % MCHC 31 L (32-34) % RDW 24.7 H (13.2-15.2) % Plt Count 498 H (140-440) K/mm3 PT 28.0 H (12.2-14.9) Sec. INR 2.60 H (0.87-1.13) Chloride 95.9 L (98-107) mmol/L BUN 41 H (9-20) mg/dL Creatinine 5.9 H (0.8-1.5) mg/dL Glucose 111 H (75-100) mg/dL Calcium 10.3 H (8.4-10.2) mg/dL
[2016-04-25] MEDS ORDERED: NACL 0.9 (PRIMING MACHINE ONLY DIALYSIS) MC ONE (16:23)
[2016-04-25] MEDS: COUMADIN PO SCH (17:10)
--- NOTE | 2016-04-25 19:48 | Progress Note ---
Assessment and Plan 1. DM: Continue with insulin therapy, Consistent 2000 ADA diet 2. Left BKA: Now philomena BKA. Wound in the left BKA look infected per wound care nurse. For hyperbacric oxygen therapy. continue with PT/OT 3. ESRD on HD on , , and Sat. Nephrology following 4. Leukocytosis: Reactive post op. No fever. Trend 5. Afib: Rate controlled. anticoagulated 6. HTN: getting low. D/C hydrallazin to avoid Orthostasis with PT. 7. DVT ppx with lovenox and GI with pepcid Disposition: Discharged after physical therapy and occupational therapy and continue with home wound care and outpatient hyperbaric oxygen therapy Subjective Date of service: 04/25/16 Principal diagnosis: Left BKA Interval history: No new complaints. Feeling better Objective - Constitutional Vitals: Vital Signs - 12hr 04/25/16 04/25/16 04/25/16 08:40 10:00 10:02 Temperature 98.6 F Pulse Rate 99 H Pulse Rate [ 99 H 99 H Left Radial] Respiratory 18 Rate Respiratory 18 Rate [Left Lower Leg] Respiratory 18 Rate [Right Leg ] Blood Pressure 136/80 Blood Pressure 136/80 [Left Arm] O2 Sat by Pulse 100 Oximetry 04/25/16 04/25/16 04/25/16 10:03 13:30 13:45 Temperature 98.2 F Pulse Rate 99 H 107 H 68 Pulse Rate [ Left Radial] Respiratory 20 Rate Respiratory Rate [Left Lower Leg] Respiratory Rate [Right Leg ] Blood Pressure 136/80 140/64 114/66 Blood Pressure [Left Arm] O2 Sat by Pulse Oximetry 04/25/16 04/25/16 04/25/16 14:00 14:15 14:30 Temperature Pulse Rate 88 86 102 H Pulse Rate [ Left Radial] Respiratory Rate Respiratory Rate [Left Lower Leg] Respiratory Rate [Right Leg ] Blood Pressure 100/69 114/68 133/67 Blood Pressure [Left Arm] O2 Sat by Pulse Oximetry 04/25/16 04/25/16 04/25/16 14:45 15:00 15:15 Temperature Pulse Rate 100 H 70 94 H Pulse Rate [ Left Radial] Respiratory Rate Respiratory Rate [Left Lower Leg] Respiratory Rate [Right Leg ] Blood Pressure 130/68 93/51 109/60 Blood Pressure [Left Arm] O2 Sat by Pulse Oximetry 04/25/16 04/25/16 04/25/16 15:30 15:45 16:00 Temperature Pulse Rate 92 H 103 H 99 H Pulse Rate [ Left Radial] Respiratory Rate Respiratory Rate [Left Lower Leg] Respiratory Rate [Right Leg ] Blood Pressure 110/64 90/40 118/64 Blood Pressure [Left Arm] O2 Sat by Pulse Oximetry 04/25/16 04/25/16 04/25/16 16:15 16:30 16:35 Temperature 98.2 F Pulse Rate 88 86 86 Pulse Rate [ 86 Left Radial] Respiratory 20 20 Rate Respiratory Rate [Left Lower Leg] Respiratory Rate [Right Leg ] Blood Pressure 113/49 124/50 126/50 Blood Pressure 139/76 [Left Arm] O2 Sat by Pulse 100 Oximetry General appearance: Present: no acute distress - EENT Eyes: PERRL, EOM intact ENT: hearing intact, clear oral mucosa - Neck Neck: supple, normal ROM - Respiratory Respiratory effort: normal Respiratory: bilateral: CTA - Cardiovascular Rhythm: regular Heart Sounds: Present: S1 & S2. Absent: gallop, rub Extremity abnormal: other (bilateral BKA with the left being more recent) - Gastrointestinal General gastrointestinal: Present: soft, non-tender, normal bowel sounds - Genitourinary Male genitourinary: normal - Integumentary Integumentary: clear, warm, dry - Neurologic Neurologic: moves all extremities - Psychiatric Psychiatric: intact judgment & insight, memory intact, depressed - Labs CBC & Chem 7: 04/25/16 04:23 04/25/16 04:12 Labs: Abnormal lab results 04/25/16 04/25/16 04/25/16 Range/Units 04:12 04:17 04:23 WBC 12.3 H (4.5-11.0) K/mm3 RBC 2.91 L (3.65-5.03) M/mm3 Hgb 8.1 L (11.8-15.2) gm/dl Hct 26.7 L (35.5-45.6) % MCHC 31 L (32-34) % RDW 24.7 H (13.2-15.2) % Plt Count 498 H (140-440) K/mm3 PT 28.0 H (12.2-14.9) Sec. INR 2.60 H (0.87-1.13) Chloride 95.9 L (98-107) mmol/L BUN 41 H (9-20) mg/dL Creatinine 5.9 H (0.8-1.5) mg/dL Glucose 111 H (75-100) mg/dL Calcium 10.3 H (8.4-10.2) mg/dL
[2016-04-26] MEDS: ROXICODONE PO PRN ×2 (06:17→13:46)
[2016-04-26 06:19] LABS: INR 2.38 (0.87-1.13)
[2016-04-26] MEDS: NOVOLOG SUB-Q SCH ×3 (07:30→18:04)
[2016-04-26] MEDS ORDERED: NACL 0.9 (PRIMING MACHINE ONLY DIALYSIS) MC ONE (10:42)
[2016-04-26] MEDS: COREG PO SCH ×2 (10:52→23:42)
[2016-04-26] MEDS: ALDACTONE PO SCH ×2 (10:52→23:42)
[2016-04-26] MEDS: COLACE PO SCH (10:52)
[2016-04-26] MEDS: RENVELA PO SCH ×3 (10:53→18:02)
[2016-04-26] MEDS: PROTONIX PO SCH (10:53)
[2016-04-26] MEDS: SENSIPAR PO SCH (10:53)
[2016-04-26] MEDS: ROCEPHIN/NS 1 GM/50 ML 1 GM/50 ML BAG IV SCH (10:54)
--- NOTE | 2016-04-26 13:50 | Progress Note ---
Assessment and Plan 1. DM: Continue with insulin therapy, Consistent 2000 ADA diet 2. Left BKA: Now jorge BKA. Wound in the left BKA look infected per wound care nurse. Doing betterFor hyperbacric oxygen therapy. continue with PT/OT 3. ESRD on HD on , , and Sat. Nephrology following 4. Leukocytosis: Reactive post op. No fever. Trend 5. Afib: Rate controlled. anticoagulated 6. HTN: getting low. D/C hydrallazin to avoid Orthostasis with PT. 7. DVT ppx with lovenox and GI with pepcid Disposition: Discharged after physical therapy and occupational therapy and continue with home wound care and outpatient hyperbaric oxygen therapy Subjective Date of service: 04/26/16 Principal diagnosis: Left BKA Interval history: No new complaints. Feeling better. improving on her PT/OT Objective - Constitutional Vitals: Vital Signs - 12hr 04/26/16 04/26/16 07:46 10:52 Temperature 98.4 F Pulse Rate 96 H Pulse Rate [ 96 H Left Brachial] Respiratory 22 Rate Blood Pressure 137/83 Blood Pressure 137/83 [Left Arm] O2 Sat by Pulse 100 Oximetry General appearance: Present: no acute distress - EENT Eyes: PERRL ENT: hearing intact, clear oral mucosa Ears: bilateral: normal - Neck Neck: supple, normal ROM - Respiratory Respiratory effort: normal Respiratory: bilateral: CTA - Cardiovascular Rhythm: regular Heart Sounds: Present: S1 & S2. Absent: gallop, rub Extremities: Full ROM Extremity abnormal: other (Jorge BKA) - Gastrointestinal General gastrointestinal: Present: soft, non-tender, non-distended, normal bowel sounds - Integumentary Integumentary: clear, warm, dry - Musculoskeletal Musculoskeletal: 1, strength equal bilaterally - Neurologic Neurologic: moves all extremities - Psychiatric Psychiatric: memory intact, appropriate mood/affect, intact judgment & insight - Labs CBC & Chem 7: 04/25/16 04:23 04/25/16 04:12 Labs: Abnormal lab results 04/26/16 Range/Units 05:37 PT 26.1 H (12.2-14.9) Sec. INR 2.38 H (0.87-1.13)
--- NOTE | 2016-04-26 16:50 | Progress Note ---
Assessment and Plan 60 y.o. male s/p left BKA, now bilateral amputee - s/p left BKA- pain controlled; continue to hold Ampushield; wound care following; remains afebrile, some drainage noted at right incision line, pending culture results; refusing IV ABX - HTN/DM- well controlled - ESRD- Nephrology following; continue on HD, TTS - Afib- INR remains therapeutic, rate controlled - history of right BKA - repeat labs in AM - dispo- d/c home on Friday; outpt hyperbarics to continue starting Friday afternoon following discharge - Patient Problems (1) Atherosclerotic peripheral vascular disease with gangrene Onset Date: 09/28/15 Current Visit: Yes Status: Acute (2) Amputation of left lower extremity below knee Current Visit: Yes Status: Acute (3) A-fib Onset Date: 09/28/15 Current Visit: Yes Status: Chronic Qualifiers: Atrial fibrillation type: chronic Qualified Code(s): I48.2 - Chronic atrial fibrillation (4) Diabetes mellitus with peripheral autonomic neuropathy Onset Date: 09/23/15 Current Visit: Yes Status: Chronic Qualifiers: Diabetes mellitus type: type 2 Diabetes mellitus lift builder whole insulin use: with group home use Qualified Code(s): E11.43 - Type 2 diabetes mellitus with diabetic autonomic (poly)neuropathy; Z79.4 - custodial (current) use of insulin (5) End-stage renal disease Onset Date: 09/23/15 Current Visit: Yes Status: Chronic (6) HTN (hypertension) Current Visit: Yes Status: Chronic Qualifiers: Hypertension type: essential hypertension Qualified Code(s): I10 - Essential (primary) hypertension (7) Complete below knee amputation of right lower extremity Onset Date: 09/23/15 Current Visit: No Status: Acute Qualifiers: Encounter type: E Subjective Date of service: 04/26/16 Principal diagnosis: Left BKA Interval history: Pt seen in room this afternoon, F/U IPR course, left BKA, now bilateral amputee. Pain controlled; progressing with sliding board transfers Objective - Constitutional Vitals: Vital Signs - 12hr 04/26/16 04/26/16 04/26/16 07:46 10:00 10:52 Temperature 98.4 F Pulse Rate 96 H Pulse Rate [ 96 H 96 H Left Brachial] Respiratory 22 22 Rate Blood Pressure 137/83 Blood Pressure 137/83 [Left Arm] O2 Sat by Pulse 100 100 Oximetry General appearance: Present: no acute distress - EENT Eyes: EOM intact ENT: hearing intact - Neck Neck: supple, normal ROM - Respiratory Respiratory effort: normal Extremity abnormal: other (left residual limb with progression of areas of necrosis; sloughing noted at incision line with mild drainage) - Neurologic Neurologic: CNII-XII intact, moves all extremities - Psychiatric Psychiatric: cooperative, depressed - Allied health notes Allied health notes reviewed: PT (Independent for bed mobility; supervision to Rosa for scooting transfers), OT (min-modA for sliding board transfers, toilet; requires assistance with clothing management) - Labs CBC & Chem 7: 04/25/16 04:23 04/25/16 04:12 Labs: Abnormal lab results 04/26/16 Range/Units 05:37 PT 26.1 H (12.2-14.9) Sec. INR 2.38 H (0.87-1.13)
--- NOTE | 2016-04-26 17:36 | Progress Note ---
Assessment and Plan - Patient Problems (1) End-stage renal disease Onset Date: 09/23/15 Current Visit: Yes Status: Chronic Plan to address problem: continue HD on T/T/S schedule. (2) Atherosclerotic peripheral vascular disease with gangrene Onset Date: 09/28/15 Current Visit: Yes Status: Acute Plan to address problem: PVD w/ L foot gangrene s/p L BKA, continue PT/OT (3) HTN (hypertension) Current Visit: Yes Status: Chronic Qualifiers: Hypertension type: essential hypertension Qualified Code(s): I10 - Essential (primary) hypertension Plan to address problem: Will monitor BP on current meds, currently well controlled. (4) Secondary hyperparathyroidism (of renal origin) Current Visit: No Status: Chronic Plan to address problem: continue sensipar, renvela (5) Anemia in chronic kidney disease Current Visit: Yes Status: Chronic Plan to address problem: continue EPO with HD Subjective Date of service: 04/26/16 Principal diagnosis: Left BKA Interval history: Patient awake, alert, in NAD Objective - Vital Signs Vital signs: Vital Signs - 12hr 04/26/16 04/26/16 04/26/16 07:46 10:00 10:52 Temperature 98.4 F Pulse Rate 96 H Pulse Rate [ 96 H 96 H Left Brachial] Respiratory 22 22 Rate Blood Pressure 137/83 Blood Pressure 137/83 [Left Arm] O2 Sat by Pulse 100 100 Oximetry - General Appearance General appearance: well-developed, well-nourished, appears stated age EENT: ATNC, PERRL, mucous membranes moist Neck: no JVD Respiratory: Present: Clear to Ascultation Cardiology: regular, S1S2 Gastrointestinal: normal, normoactive bowel sounds Integumentary: no rash, other (b/l BKA ) Neurologic: no focal deficit, alert and oriented x3, strength 5/5, CN 3-12 intact Psychiatric: mood/affect appropriate, cooperative - Lab 04/25/16 04:23 04/25/16 04:12 Most recent lab results Calcium 10.3 mg/dL (8.4-10.2) H 04/25/16 04:12
[2016-04-26] MEDS: COUMADIN PO SCH (18:02)
[2016-04-27] MEDS: ROXICODONE PO PRN ×4 (01:04→22:40)
[2016-04-27] MEDS: NOVOLOG SUB-Q SCH ×5 (01:26→21:28)
[2016-04-27 05:18] LABS: Hematocrit 27.6 % (35.5-45.6); Hemoglobin 8.7 gm/dl (11.8-15.2); Mean Corpuscular HGB Conc 32 % (32-34); Mean Corpuscular Hemoglobin 28 pg (28-32); Mean Corpuscular Volume 88 fl (84-94); Platelet Count 539 K/mm3 (140-440); Red Blood Count 3.14 M/mm3 (3.65-5.03); White Blood Count 11.1 K/mm3 (4.5-11.0)
[2016-04-27 05:30] LABS: INR 2.34 (0.87-1.13)
[2016-04-27 05:39] LABS: BUN/Creatinine Ratio 6.89; Calcium 10.4 mg/dL (8.4-10.2); Chloride 95.9 mmol/L (98-107); Potassium 3.9 mmol/L (3.6-5.0)
[2016-04-27] MEDS: COLACE PO SCH ×3 (07:05→21:27)
[2016-04-27] MEDS: TYLENOL PO PRN (08:55)
[2016-04-27] MEDS: RENVELA PO SCH ×3 (09:04→17:21)
[2016-04-27] MEDS: SENSIPAR PO SCH (09:04)
[2016-04-27] MEDS: ALDACTONE PO SCH ×2 (09:06→21:28)
[2016-04-27] MEDS: COREG PO SCH ×2 (09:07→21:26)
[2016-04-27] MEDS: PROTONIX PO SCH (09:07)
[2016-04-27] MEDS: ROCEPHIN/NS 1 GM/50 ML 1 GM/50 ML BAG IV SCH (09:08)
--- NOTE | 2016-04-27 09:20 | Progress Note ---
Assessment and Plan - Patient Problems (1) End-stage renal disease Onset Date: 09/23/15 Current Visit: Yes Status: Chronic Plan to address problem: continue HD on T/T/S schedule. (2) Atherosclerotic peripheral vascular disease with gangrene Onset Date: 09/28/15 Current Visit: Yes Status: Acute Plan to address problem: PVD w/ L foot gangrene s/p L BKA, continue PT/OT (3) HTN (hypertension) Current Visit: Yes Status: Chronic Qualifiers: Hypertension type: essential hypertension Qualified Code(s): I10 - Essential (primary) hypertension Plan to address problem: Will monitor BP on current meds, currently well controlled. (4) Secondary hyperparathyroidism (of renal origin) Current Visit: No Status: Chronic Plan to address problem: continue sensipar, renvela (5) Anemia in chronic kidney disease Current Visit: Yes Status: Chronic Plan to address problem: hb stable at 8.7, continue EPO with HD Subjective Date of service: 04/27/16 Principal diagnosis: Left BKA Interval history: pt awake, alert, in good spirit this AM Objective - Vital Signs Vital signs: Vital Signs - 12hr 04/26/16 04/27/16 23:42 09:06 Pulse Rate 112 H 101 H Blood Pressure 135/70 128/87 - General Appearance General appearance: appears stated age, chronically ill EENT: ATNC, PERRL, mucous membranes moist Neck: no JVD, supple Respiratory: Present: Clear to Ascultation Cardiology: regular, S1S2 Gastrointestinal: normal, normoactive bowel sounds Integumentary: no rash, other (b/l BKA) Neurologic: no focal deficit, alert and oriented x3, strength 5/5, CN 3-12 intact Psychiatric: mood/affect appropriate, cooperative - Lab 04/27/16 04:33 04/27/16 04:33 Most recent lab results Calcium 10.4 mg/dL (8.4-10.2) H 04/27/16 04:33
[2016-04-27] MEDS ORDERED: NACL 0.9 (PRIMING MACHINE ONLY DIALYSIS) MC ONE (14:38)
[2016-04-27] MEDS: HEPARIN IV PRN (14:52)
[2016-04-27] MEDS: COUMADIN PO SCH (17:21)
--- NOTE | 2016-04-27 19:06 | Progress Note ---
Assessment and Plan 1. DM: Continue with insulin therapy, Consistent 2000 ADA diet 2. Left BKA: Now philomena BKA. Wound in the left BKA look infected per wound care nurse. Doing better. For hyperbacric oxygen therapy. continue with PT/OT 3. ESRD on HD on , , and Sat. Nephrology following 4. Leukocytosis: Reactive post op. No fever. Trend 5. Afib: Rate controlled. anticoagulated 6. HTN: getting low. D/C hydrallazin to avoid Orthostasis with PT. 7. DVT ppx with lovenox and GI with pepcid Disposition: Discharged after physical therapy and occupational therapy and continue with home wound care and outpatient hyperbaric oxygen therapy Subjective Date of service: 04/27/16 Principal diagnosis: Left BKA Interval history: No new complaints. Feeling better. improving on her PT/OT Objective - Constitutional Vitals: Vital Signs - 12hr 04/27/16 04/27/16 04/27/16 08:00 09:06 10:00 Temperature 101 F H Pulse Rate 101 H Pulse Rate [ 20 L 100 H Left Brachial] Respiratory 20 20 Rate Blood Pressure 128/87 Blood Pressure 128/87 [Left Arm] O2 Sat by Pulse 97 97 Oximetry 04/27/16 04/27/16 04/27/16 12:00 12:15 12:30 Temperature Pulse Rate 103 H 105 H 108 H Pulse Rate [ Left Brachial] Respiratory Rate Blood Pressure 121/71 117/71 118/78 Blood Pressure [Left Arm] O2 Sat by Pulse Oximetry 04/27/16 04/27/16 04/27/16 12:45 13:00 13:15 Temperature Pulse Rate 104 H 97 H 96 H Pulse Rate [ Left Brachial] Respiratory Rate Blood Pressure 123/83 111/69 119/86 Blood Pressure [Left Arm] O2 Sat by Pulse Oximetry 04/27/16 04/27/16 04/27/16 13:30 13:45 14:00 Temperature Pulse Rate 83 70 97 H Pulse Rate [ Left Brachial] Respiratory Rate Blood Pressure 135/95 96/62 108/83 Blood Pressure [Left Arm] O2 Sat by Pulse Oximetry 04/27/16 04/27/16 04/27/16 14:15 14:30 14:45 Temperature Pulse Rate 83 78 78 Pulse Rate [ Left Brachial] Respiratory Rate Blood Pressure 104/73 102/42 99/65 Blood Pressure [Left Arm] O2 Sat by Pulse Oximetry 04/27/16 04/27/16 15:00 18:59 Temperature 98.1 F Pulse Rate 106 H Pulse Rate [ 103 H Left Brachial] Respiratory 20 Rate Blood Pressure 99/61 Blood Pressure 120/74 [Left Arm] O2 Sat by Pulse 100 Oximetry General appearance: Present: no acute distress, well-nourished - EENT Eyes: PERRL, EOM intact ENT: hearing intact, clear oral mucosa - Neck Neck: supple, normal ROM - Respiratory Respiratory effort: normal Respiratory: bilateral: CTA - Cardiovascular Rhythm: regular Heart Sounds: Present: S1 & S2. Absent: gallop, rub Extremities: pulses intact, No edema, normal color, Full ROM - Gastrointestinal General gastrointestinal: Present: soft, non-tender, non-distended - Integumentary Integumentary: clear, warm, dry - Musculoskeletal Musculoskeletal: 1, strength equal bilaterally - Neurologic Neurologic: moves all extremities - Psychiatric Psychiatric: intact judgment & insight - Labs CBC & Chem 7: 04/27/16 04:33 04/27/16 04:33 Labs: Abnormal lab results 04/27/16 04/27/16 04/27/16 Range/Units 04:33 04:33 04:33 WBC 11.1 H (4.5-11.0) K/mm3 RBC 3.14 L (3.65-5.03) M/mm3 Hgb 8.7 L (11.8-15.2) gm/dl Hct 27.6 L (35.5-45.6) % RDW 25.0 H (13.2-15.2) % Plt Count 539 H (140-440) K/mm3 PT 25.7 H (12.2-14.9) Sec. INR 2.34 H (0.87-1.13) Chloride 95.9 L (98-107) mmol/L BUN 40 H (9-20) mg/dL Creatinine 5.8 H (0.8-1.5) mg/dL Glucose 106 H (75-100) mg/dL Calcium 10.4 H (8.4-10.2) mg/dL
[2016-04-28 05:20] LABS: INR 2.2 (0.87-1.13)
[2016-04-28] MEDS: ROXICODONE PO PRN ×2 (06:42→14:36)
[2016-04-28] MEDS: NOVOLOG SUB-Q SCH ×4 (07:30→22:00)
[2016-04-28] MEDS: RENVELA PO SCH ×3 (10:15→17:37)
[2016-04-28] MEDS: TYLENOL PO PRN (10:15)
[2016-04-28] MEDS: SENSIPAR PO SCH (10:16)
[2016-04-28] MEDS: COREG PO SCH ×2 (10:20→21:59)
[2016-04-28] MEDS: PROTONIX PO SCH (10:20)
[2016-04-28] MEDS: ALDACTONE PO SCH (10:21)
[2016-04-28] MEDS: ROCEPHIN/NS 1 GM/50 ML 1 GM/50 ML BAG IV SCH (10:24)
[2016-04-28] MEDS: COLACE PO SCH ×2 (10:24→22:01)
--- NOTE | 2016-04-28 12:28 | Progress Note ---
Assessment and Plan - Patient Problems (1) End-stage renal disease Onset Date: 09/23/15 Current Visit: Yes Status: Chronic Plan to address problem: continue HD on T/T/S schedule. (2) Atherosclerotic peripheral vascular disease with gangrene Onset Date: 09/28/15 Current Visit: Yes Status: Acute Plan to address problem: PVD w/ L foot gangrene s/p L BKA, continue PT/OT (3) HTN (hypertension) Current Visit: Yes Status: Chronic Qualifiers: Hypertension type: essential hypertension Qualified Code(s): I10 - Essential (primary) hypertension Plan to address problem: BP lower side, will decrease spironolactone to 25mg po qd (4) Secondary hyperparathyroidism (of renal origin) Current Visit: No Status: Chronic Plan to address problem: continue sensipar, renvela (5) Anemia in chronic kidney disease Current Visit: Yes Status: Chronic Plan to address problem: hb stable at 8.7, continue EPO with HD Subjective Date of service: 04/28/16 Principal diagnosis: Left BKA Interval history: pt awake, alert, in NAD Objective - Vital Signs Vital signs: Vital Signs - 12hr 04/28/16 04/28/16 04/28/16 08:39 10:20 10:21 Pulse Rate 81 81 Pulse Rate [ 81 Left Brachial] Respiratory 18 Rate Blood Pressure 94/68 94/68 Blood Pressure 94/68 [Left Arm] O2 Sat by Pulse 100 Oximetry - General Appearance General appearance: appears stated age, chronically ill EENT: ATNC, PERRL, mucous membranes moist Neck: no JVD Respiratory: Present: Clear to Ascultation Cardiology: regular, S1S2 Gastrointestinal: normal, normoactive bowel sounds Integumentary: no rash, other (b/l BKA) Neurologic: no focal deficit, alert and oriented x3, strength 5/5, CN 3-12 intact Psychiatric: mood/affect appropriate, cooperative - Lab 04/27/16 04:33 04/27/16 04:33 Most recent lab results Calcium 10.4 mg/dL (8.4-10.2) H 04/27/16 04:33
[2016-04-28] MEDS: COUMADIN PO SCH (17:37)
[2016-04-28 21:14] VITALS: BP 123/78
[2016-04-29 05:32] LABS: INR 2.13 (0.87-1.13)
[2016-04-29] MEDS: ROXICODONE PO PRN (06:53)
[2016-04-29] MEDS ORDERED: ALDACTONE PO SCH (08:00)
[2016-04-29] MEDS: SENSIPAR PO SCH (09:37)
[2016-04-29] MEDS: PROTONIX PO SCH (09:37)
[2016-04-29] MEDS: RENVELA PO SCH (09:38)
[2016-04-29] MEDS: COREG PO SCH (09:38)
[2016-04-29] MEDS: COLACE PO SCH (09:42)
--- NOTE | 2016-04-29 10:01 | Discharge Summary ---
Providers - Providers Date of Admission: 04/15/16 19:39 Date of discharge: 04/29/16 Attending physician: DAVID NELSON 04/15/16 20:08 Occupational Therapy Evaluate and Treat [CONS] Routine Comment: Reason For Exam: s/p left BKA; now bilateral amputee Physical Therapy Evaluation and Treat [CONS] Routine Comment: Reason For Exam: s/p left BKA; now bilateral amputee 04/15/16 20:15 Consult to Physician [CONS] Routine Consulting Provider: MILTON VITALE Reason For Exam: ESRD on HD Place consult to:: DR IAM KEENAN Notified:: YES Phone number called:: YES Was contact made?: Yes If yes, spoke with:: DR VITALE Time called:: 12:00 Comment:: DR NELSON SPOKE WITH DR IAM MD HERE TO SEEE PATIENT. 04/17/16 08:57 Consult to Physician [CONS] Routine Consulting Provider: PATIENCE MARIE Reason For Exam: depression Place consult to:: [facility] Notified:: YES Phone number called:: [phone] Was contact made?: Yes If yes, spoke with:: ЮЛИЯ Time called:: 10:55 Comment:: SPOKE WITH ЮЛИЯ WILL NOTIFY DR FRANK MORIN 04/18/16 09:39 Consult to Wound/ET Nurse [CONS] Urgent Reason For Exam: wound eval Primary care physician: MARICEL PIKE Hospitalization Reason for admission: Left BKA, no bilateral BKA Condition: Stable Hospital course: 60 y.o. male with previous right BKA, admitted to [facility] for left BKA due to PVD with LLE gangrene. Post-op course notable for supratherapeutic INR, acute on chronic anemia, fluctuating leukocytosis. Pt noted to have new functional deficits as he is now a bilateral amputee; therefore, admitted to IRU for aggressive therapies and ongoing medical management. IRU course notable for initial hypotension; requiring adjustments in medications and HD volumes. BP stabilized prior to d/c. Also noted to have ongoing fluctuating leukocytosis; later found to have + wound culture at left residual limb (MRSA); Vanc to be initiated with HD as outpt per Dr. Vitale. Left residual limb was noted to develop breakdown/necrosis during course; followed by Vascular and wound care. AmpuShield discontinued and pt recommended to initiate in hyperbarics at discharge. Pt with depressed mood due to new amputation; seen by Glen, however , not initiated on medications. Functionally, pt showed some progress throughout course, however, will continue to be a falls risk. On admission, pt required supervision to modA for bed mobility, SBA for backward scoot, min/modA for sliding board transfer; Nicolle for bathing and LB dressing; max for toileting. At the time of discharge, pt has progressed to Rosa for bed mobility , supervision for level sliding board transfers; SBA for sponge bath and dressing; modA for toilet transfers, Nicolle for shower transfers; remains maxA for toileting for clothing management. Pt is stable for d/c home at this time. >30 mins spent on discharge process; medication reconciliation; case discussed with Nephrology to provide Vanc with dialysis starting on tomorrow. Extensive education provided to pt and girlfriend regarding ongoing care needs and F/U; girlfriend refused to participate in family training during visit; however, heavily educated on safety concerns, especially car transfers after discharge. Girlfriend expressed desire for patient to transfer to SNF; however, pt did not agree with this. Pt also has been recommended for re-initiation of hyperbaric treatments which cannot be completed in SNF. Transportation services have been arranged by patient for hyperbaric and dialysis (TTS) appointments; will have home health visits (MWF) to provide ongoing training for transfers within his home. Girlfriend is present until noon daily within the home. All questions were answered. 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 Gama (6) HTN (hypertension) Status: Chronic Qualifiers: Hypertension type: essential hypertension Qualified Code(s): I10 - Essential (primary) hypertension (7) Complete below knee amputation of right lower extremity Status: Acute Qualifiers: Encounter type: E Core Measure Documentation - Palliative Care Palliative Care/ Comfort Measures: Not Applicable - Core Measures Any of the following diagnoses?: none Exam - Constitutional Vitals: Temp Pulse Resp BP Pulse Ox 97.4 F L 92 H 18 123/78 98 04/28/16 20:00 04/28/16 21:59 04/28/16 20:00 04/28/16 21:59 04/28/16 20:00 General appearance: Present: no acute distress, other (girlfriend present) - EENT Eyes: Present: EOM intact ENT: hearing intact - Neck Neck: Present: supple, normal ROM - Respiratory Respiratory effort: normal - Psychiatric Psychiatric: intact judgment & insight, memory intact, cooperative (flat affect) - Neurologic Neurologic: CNII-XII intact, moves all extremities Plan Activity: fall precautions Diet: diabetic, renal Wound: change dressing, other (outpt wound care clinic; hyperbarics) Special Instructions: record daily BP diary, record blood sugar diary, other ( home health- [facility]) Durable Medical Equipment Needed Upon Discharge: Bedside Commode (drop arm), other (sliding board; [facility]) Follow up with: MARICEL PIKE MD [Primary Care Provider] - 7 Days ZEFERINO THORNTON MD [Staff Physician] - 7 Days HARI CHADWICK MD [Staff Physician] - 7 Days Forms: Warfarin Discharge Instruction Prescriptions: Carvedilol [Coreg] 6.25 mg PO BID #60 tablet Cinacalcet [Sensipar] 60 mg PO QDAY #30 tablet oxyCODONE [Roxicodone TAB] 5 mg PO Q6H PRN #60 tablet PRN Reason: Pain, Moderate (4-6) Pantoprazole [Protonix TAB] 40 mg PO QDAY #30 tablet Sevelamer Carbonate [Renvela] 800 mg PO TIDWM #90 tablet Spironolactone [Aldactone] 25 mg PO QDAY #30 tablet Warfarin [Coumadin] 2 mg PO DAILY@1700 #20 tablet
== END 2016-04-29 13:00 | disposition home or self-care (01) | DRG 299 ==
LOC: 3B 19:39
PROVIDERS: ADMIT Family Medicine; ATTEND Family Medicine
PROC: 5A1D60Z (ICD-10-PCS; principal; 2016-04-16)
DX: I70.262 Atherosclerosis of native arteries of extremities with gangrene, left leg (principal); N18.6 End stage renal disease; I12.0 Hypertensive chronic kidney disease with stage 5 chronic kidney disease or end stage renal disease; N25.81 Secondary hyperparathyroidism of renal origin; E11.52 Type 2 diabetes mellitus with diabetic peripheral angiopathy with gangrene; E11.621 Type 2 diabetes mellitus with foot ulcer; E11.22 Type 2 diabetes mellitus with diabetic chronic kidney disease; D63.1 Anemia in chronic kidney disease; D72.829 Elevated white blood cell count, unspecified; I48.2 Chronic atrial fibrillation; F32.9 Major depressive disorder, single episode, unspecified; E11.319 Type 2 diabetes mellitus with unspecified diabetic retinopathy without macular edema; E11.43 Type 2 diabetes mellitus with diabetic autonomic (poly)neuropathy; Z99.2 Dependence on renal dialysis; Z89.512 Acquired absence of left leg below knee; Z89.511 Acquired absence of right leg below knee; Z82.49 Family history of ischemic heart disease and other diseases of the circulatory system; Z80.3 Family history of malignant neoplasm of breast; Z79.4 Long term (current) use of insulin; Z83.3 Family history of diabetes mellitus
CPT/HCPCS: 36415; 80048; 80053; 82962; 85014; 85018; 85025; 85027; 85610; 87076; 87116; 87186; J0696; J0885; J1644; J1815; J7030

== ENCOUNTER 2016-05-01 13:02 | Outpatient (CLI) | payer MEDICARE | END 2016-05-01 13:03 | disposition home or self-care (01) | LOC: WOUND 13:02 | PROVIDERS: ATTEND Internal Medicine | DX: I70.243 Atherosclerosis of native arteries of left leg with ulceration of ankle (principal); E11.621 Type 2 diabetes mellitus with foot ulcer; L97.322 Non-pressure chronic ulcer of left ankle with fat layer exposed; L97.422 Non-pressure chronic ulcer of left heel and midfoot with fat layer exposed; L97.822 Non-pressure chronic ulcer of other part of left lower leg with fat layer exposed; L97.523 Non-pressure chronic ulcer of other part of left foot with necrosis of muscle; L97.522 Non-pressure chronic ulcer of other part of left foot with fat layer exposed; E11.40 Type 2 diabetes mellitus with diabetic neuropathy, unspecified; E11.52 Type 2 diabetes mellitus with diabetic peripheral angiopathy with gangrene; N18.6 End stage renal disease; I10 Essential (primary) hypertension; E78.5 Hyperlipidemia, unspecified; M19.90 Unspecified osteoarthritis, unspecified site; Z87.891 Personal history of nicotine dependence; Z89.421 Acquired absence of other right toe(s) | CPT/HCPCS: 82962; G0277; 99183 ==

== ENCOUNTER 2016-05-02 12:37 | Outpatient (CLI) | payer MEDICARE | END 2016-05-02 12:38 | disposition home or self-care (01) | LOC: WOUND 12:37 | PROVIDERS: ATTEND Internal Medicine | DX: T86.821 Skin graft (allograft) (autograft) failure (principal); E11.22 Type 2 diabetes mellitus with diabetic chronic kidney disease; I12.0 Hypertensive chronic kidney disease with stage 5 chronic kidney disease or end stage renal disease; N18.6 End stage renal disease; E78.5 Hyperlipidemia, unspecified; E11.51 Type 2 diabetes mellitus with diabetic peripheral angiopathy without gangrene; M19.90 Unspecified osteoarthritis, unspecified site; E11.40 Type 2 diabetes mellitus with diabetic neuropathy, unspecified; Y83.2 Surgical operation with anastomosis, bypass or graft as the cause of abnormal reaction of the patient, or of later complication, without mention of misadventure at the time of the procedure | CPT/HCPCS: 82962; G0277; 99183 ==

== ENCOUNTER 2016-05-03 14:08 | Outpatient (CLI) | payer MEDICARE | END 2016-05-03 14:09 | disposition home or self-care (01) | LOC: WOUND 14:08 | PROVIDERS: ATTEND Internal Medicine | DX: T86.821 Skin graft (allograft) (autograft) failure (principal); E11.22 Type 2 diabetes mellitus with diabetic chronic kidney disease; I12.0 Hypertensive chronic kidney disease with stage 5 chronic kidney disease or end stage renal disease; N18.6 End stage renal disease; Z99.2 Dependence on renal dialysis; E78.5 Hyperlipidemia, unspecified; E11.51 Type 2 diabetes mellitus with diabetic peripheral angiopathy without gangrene; M19.90 Unspecified osteoarthritis, unspecified site; E11.40 Type 2 diabetes mellitus with diabetic neuropathy, unspecified; Z87.891 Personal history of nicotine dependence; Y83.2 Surgical operation with anastomosis, bypass or graft as the cause of abnormal reaction of the patient, or of later complication, without mention of misadventure at the time of the procedure | CPT/HCPCS: 82962; G0277; 99183 ==

== ENCOUNTER 2016-05-06 13:25 | Outpatient (CLI) | payer MEDICARE | END 2016-05-06 13:26 | disposition home or self-care (01) | LOC: WOUND 13:25 | PROVIDERS: ATTEND Internal Medicine | DX: T86.821 Skin graft (allograft) (autograft) failure (principal); E11.621 Type 2 diabetes mellitus with foot ulcer; E11.52 Type 2 diabetes mellitus with diabetic peripheral angiopathy with gangrene; L97.421 Non-pressure chronic ulcer of left heel and midfoot limited to breakdown of skin; L97.521 Non-pressure chronic ulcer of other part of left foot limited to breakdown of skin; E11.622 Type 2 diabetes mellitus with other skin ulcer; L97.321 Non-pressure chronic ulcer of left ankle limited to breakdown of skin; L97.821 Non-pressure chronic ulcer of other part of left lower leg limited to breakdown of skin; E11.40 Type 2 diabetes mellitus with diabetic neuropathy, unspecified; E11.22 Type 2 diabetes mellitus with diabetic chronic kidney disease; I12.0 Hypertensive chronic kidney disease with stage 5 chronic kidney disease or end stage renal disease; N18.6 End stage renal disease; E78.2 Mixed hyperlipidemia; M19.90 Unspecified osteoarthritis, unspecified site; Z87.891 Personal history of nicotine dependence; Y83.3 Surgical operation with formation of external stoma as the cause of abnormal reaction of the patient, or of later complication, without mention of misadventure at the time of the procedure | CPT/HCPCS: 82962; G0277; 99183 ==

== ENCOUNTER 2016-05-07 12:45 | Outpatient (CLI) | payer MEDICARE | END 2016-05-07 12:46 | disposition home or self-care (01) | LOC: WOUND 12:45 | PROVIDERS: ATTEND Internal Medicine | DX: T86.821 Skin graft (allograft) (autograft) failure (principal); E11.22 Type 2 diabetes mellitus with diabetic chronic kidney disease; I12.0 Hypertensive chronic kidney disease with stage 5 chronic kidney disease or end stage renal disease; N18.6 End stage renal disease; E78.5 Hyperlipidemia, unspecified; M19.90 Unspecified osteoarthritis, unspecified site; E11.51 Type 2 diabetes mellitus with diabetic peripheral angiopathy without gangrene; Z99.2 Dependence on renal dialysis; Z87.891 Personal history of nicotine dependence; Y83.2 Surgical operation with anastomosis, bypass or graft as the cause of abnormal reaction of the patient, or of later complication, without mention of misadventure at the time of the procedure | CPT/HCPCS: 82962; G0277; 99183 ==

== ENCOUNTER 2016-05-08 13:11 | Outpatient (CLI) | payer MEDICARE | END 2016-05-08 13:12 | disposition home or self-care (01) | LOC: WOUND 13:11 | PROVIDERS: ATTEND Internal Medicine | DX: T86.821 Skin graft (allograft) (autograft) failure (principal); E11.22 Type 2 diabetes mellitus with diabetic chronic kidney disease; I12.0 Hypertensive chronic kidney disease with stage 5 chronic kidney disease or end stage renal disease; N18.6 End stage renal disease; E78.5 Hyperlipidemia, unspecified; E11.51 Type 2 diabetes mellitus with diabetic peripheral angiopathy without gangrene; E11.40 Type 2 diabetes mellitus with diabetic neuropathy, unspecified; M19.90 Unspecified osteoarthritis, unspecified site; Z87.891 Personal history of nicotine dependence; Z89.511 Acquired absence of right leg below knee; Z99.2 Dependence on renal dialysis; Y83.2 Surgical operation with anastomosis, bypass or graft as the cause of abnormal reaction of the patient, or of later complication, without mention of misadventure at the time of the procedure | CPT/HCPCS: 82962; G0277; 99183 ==

== ENCOUNTER 2016-05-10 11:29 | Outpatient (CLI) | payer MEDICARE ==
[2016-05-10] MEDS ORDERED: XYLOCAINE TOPICAL 2% TP ONE ×2 (12:32→12:40)
== END 2016-05-10 11:30 | disposition home or self-care (01) ==
LOC: WOUND 11:29
PROVIDERS: ATTEND Internal Medicine
DX: T81.89XD Other complications of procedures, not elsewhere classified, subsequent encounter (principal); I70.243 Atherosclerosis of native arteries of left leg with ulceration of ankle; E11.622 Type 2 diabetes mellitus with other skin ulcer; L97.822 Non-pressure chronic ulcer of other part of left lower leg with fat layer exposed; E11.40 Type 2 diabetes mellitus with diabetic neuropathy, unspecified; E11.52 Type 2 diabetes mellitus with diabetic peripheral angiopathy with gangrene; E11.22 Type 2 diabetes mellitus with diabetic chronic kidney disease; I12.0 Hypertensive chronic kidney disease with stage 5 chronic kidney disease or end stage renal disease; N18.6 End stage renal disease; Z99.2 Dependence on renal dialysis; E78.5 Hyperlipidemia, unspecified; M19.90 Unspecified osteoarthritis, unspecified site; Z89.511 Acquired absence of right leg below knee; Z87.891 Personal history of nicotine dependence; Y83.8 Other surgical procedures as the cause of abnormal reaction of the patient, or of later complication, without mention of misadventure at the time of the procedure
CPT/HCPCS: 82962

== ENCOUNTER 2016-05-17 11:12 | Outpatient (CLI) | payer MEDICARE ==
[2016-05-17] MEDS ORDERED: XYLOCAINE TOPICAL 2% TP ONE ×2 (11:40→15:42)
[2016-05-17] MEDS ORDERED: SANTYL TP ONE ×2 (12:20→15:42)
== END 2016-05-17 11:13 | disposition home or self-care (01) ==
LOC: WOUND 11:12
PROVIDERS: ATTEND Internal Medicine
DX: T81.89XD Other complications of procedures, not elsewhere classified, subsequent encounter (principal); I70.243 Atherosclerosis of native arteries of left leg with ulceration of ankle; E11.622 Type 2 diabetes mellitus with other skin ulcer; L97.822 Non-pressure chronic ulcer of other part of left lower leg with fat layer exposed; E11.40 Type 2 diabetes mellitus with diabetic neuropathy, unspecified; E11.52 Type 2 diabetes mellitus with diabetic peripheral angiopathy with gangrene; E11.22 Type 2 diabetes mellitus with diabetic chronic kidney disease; L89.892 Pressure ulcer of other site, stage 2; I12.0 Hypertensive chronic kidney disease with stage 5 chronic kidney disease or end stage renal disease; Z99.2 Dependence on renal dialysis; N18.6 End stage renal disease; M19.90 Unspecified osteoarthritis, unspecified site; Z87.891 Personal history of nicotine dependence; Z89.511 Acquired absence of right leg below knee; Y83.8 Other surgical procedures as the cause of abnormal reaction of the patient, or of later complication, without mention of misadventure at the time of the procedure
CPT/HCPCS: 82962; 87075; 87076; 87116; 87186; G0277; 99183; 99215; G0463

== ENCOUNTER 2016-05-20 13:06 | Outpatient (CLI) | payer MEDICARE | END 2016-05-20 13:07 | disposition home or self-care (01) | LOC: WOUND 13:06 | PROVIDERS: ATTEND Internal Medicine | DX: T81.89XD Other complications of procedures, not elsewhere classified, subsequent encounter (principal); I70.243 Atherosclerosis of native arteries of left leg with ulceration of ankle; E11.622 Type 2 diabetes mellitus with other skin ulcer; L97.822 Non-pressure chronic ulcer of other part of left lower leg with fat layer exposed; E11.40 Type 2 diabetes mellitus with diabetic neuropathy, unspecified; E11.52 Type 2 diabetes mellitus with diabetic peripheral angiopathy with gangrene; E11.22 Type 2 diabetes mellitus with diabetic chronic kidney disease; I12.0 Hypertensive chronic kidney disease with stage 5 chronic kidney disease or end stage renal disease; N18.6 End stage renal disease; E78.5 Hyperlipidemia, unspecified; M19.90 Unspecified osteoarthritis, unspecified site; Z99.2 Dependence on renal dialysis; Z89.511 Acquired absence of right leg below knee; Z87.891 Personal history of nicotine dependence; Y83.8 Other surgical procedures as the cause of abnormal reaction of the patient, or of later complication, without mention of misadventure at the time of the procedure | CPT/HCPCS: 29581; 82962; G0277; G0463; 99183; 99213 ==

== ENCOUNTER 2016-05-24 10:53 | Outpatient (CLI) | payer MEDICARE ==
[2016-05-24] MEDS ORDERED: XYLOCAINE TOPICAL 4% TP ONE ×2 (11:06→11:23)
== END 2016-05-24 10:54 | disposition home or self-care (01) ==
LOC: WOUND 10:53
PROVIDERS: ATTEND Podiatrist
DX: E11.622 Type 2 diabetes mellitus with other skin ulcer (principal); I70.243 Atherosclerosis of native arteries of left leg with ulceration of ankle; L97.321 Non-pressure chronic ulcer of left ankle limited to breakdown of skin; E11.40 Type 2 diabetes mellitus with diabetic neuropathy, unspecified; E11.52 Type 2 diabetes mellitus with diabetic peripheral angiopathy with gangrene; E11.22 Type 2 diabetes mellitus with diabetic chronic kidney disease; I12.0 Hypertensive chronic kidney disease with stage 5 chronic kidney disease or end stage renal disease; N18.6 End stage renal disease; E78.5 Hyperlipidemia, unspecified; M19.90 Unspecified osteoarthritis, unspecified site; B95.62 Methicillin resistant Staphylococcus aureus infection as the cause of diseases classified elsewhere; Z89.511 Acquired absence of right leg below knee; Z87.891 Personal history of nicotine dependence
CPT/HCPCS: 82962; G0277; G0463; 99183; 99215

== ENCOUNTER 2016-05-27 13:08 | Outpatient (CLI) | payer MEDICARE | END 2016-05-27 13:09 | disposition home or self-care (01) | LOC: WOUND 13:08 | PROVIDERS: ATTEND Internal Medicine | DX: E11.622 Type 2 diabetes mellitus with other skin ulcer (principal); L97.821 Non-pressure chronic ulcer of other part of left lower leg limited to breakdown of skin; I70.243 Atherosclerosis of native arteries of left leg with ulceration of ankle; E11.40 Type 2 diabetes mellitus with diabetic neuropathy, unspecified; E11.52 Type 2 diabetes mellitus with diabetic peripheral angiopathy with gangrene; E11.22 Type 2 diabetes mellitus with diabetic chronic kidney disease; I12.0 Hypertensive chronic kidney disease with stage 5 chronic kidney disease or end stage renal disease; N18.6 End stage renal disease; E78.5 Hyperlipidemia, unspecified; M19.90 Unspecified osteoarthritis, unspecified site; Z87.891 Personal history of nicotine dependence | CPT/HCPCS: 82962; G0277; 99183 ==

== ENCOUNTER 2016-05-29 13:15 | Outpatient (CLI) | payer MEDICARE | END 2016-05-29 13:16 | disposition home or self-care (01) | LOC: WOUND 13:15 | PROVIDERS: ATTEND Internal Medicine | DX: E11.622 Type 2 diabetes mellitus with other skin ulcer (principal); L97.821 Non-pressure chronic ulcer of other part of left lower leg limited to breakdown of skin; I70.243 Atherosclerosis of native arteries of left leg with ulceration of ankle; E11.40 Type 2 diabetes mellitus with diabetic neuropathy, unspecified; E11.52 Type 2 diabetes mellitus with diabetic peripheral angiopathy with gangrene; E11.22 Type 2 diabetes mellitus with diabetic chronic kidney disease; I12.0 Hypertensive chronic kidney disease with stage 5 chronic kidney disease or end stage renal disease; N18.6 End stage renal disease; E78.5 Hyperlipidemia, unspecified; M19.90 Unspecified osteoarthritis, unspecified site; Z87.891 Personal history of nicotine dependence; Z47.81 Encounter for orthopedic aftercare following surgical amputation; Z89.512 Acquired absence of left leg below knee | CPT/HCPCS: 82962; G0277; 99183 ==

== ENCOUNTER 2016-05-31 06:11 | Day surgery (SDC) | payer MEDICARE ==
[~2016-05-31 06:11] MED LIST: ANCEF/STERILE WATER 2 GM/20 ML 2 GM/20 ML SYRINGE IV NR; NACL 0.9% 1000 ML 1,000 ML IV SCH; PEPCID PO NR
[2016-05-31] MEDS ORDERED: NACL BACTERIOSTATIC INFILTRATI ONE (06:22)
[2016-05-31 07:11] LABS: Hematocrit 34.3 % (35.5-45.6); Hemoglobin 11.3 gm/dl (11.8-15.2); Mean Corpuscular HGB Conc 33 % (32-34); Mean Corpuscular Hemoglobin 32 pg (28-32); Mean Corpuscular Volume 96 fl (84-94); Platelet Count 229 K/mm3 (140-440); Red Blood Count 3.58 M/mm3 (3.65-5.03); White Blood Count 7.9 K/mm3 (4.5-11.0)
[2016-05-31] MEDS ORDERED: DIPRIVAN 10 MG/ML IV ONE (07:13)
[2016-05-31] MEDS ORDERED: DECADRON ONE (07:13)
[2016-05-31] MEDS ORDERED: XYLOCAINE MPF 2% ONE (07:13)
[2016-05-31] MEDS ORDERED: ZOFRAN ONE (07:13)
[2016-05-31] MEDS ORDERED: DILAUDID ONE (07:13)
[2016-05-31] MEDS ORDERED: XYLOCAINE 1% 20 mL ONE (07:14)
[2016-05-31] MEDS ORDERED: MARCAINE 0.5% 0 ML INFILTRATI ONE (07:14)
[2016-05-31] MEDS ORDERED: SODIUM BICARBONATE ONE (07:14)
[2016-05-31 07:23] LABS: INR 1.54 (0.87-1.13)
[2016-05-31 07:31] LABS: BUN/Creatinine Ratio 9.59; Chloride 98.1 mmol/L (98-107); Potassium 4.6 mmol/L (3.6-5.0); Red Cell Distribution Width 29.1 % (13.2-15.2)
--- NOTE | 2016-05-31 07:32 | Anesthesia Day of Surgery ---
Anesthesia Day of Surgery - Day of Surgery Patient Examined: Yes Patient H&P Reviewed: Yes Patient is NPO: Yes Beta Blockers: Yes
--- NOTE | 2016-05-31 07:32 | Anesthesia Consultation ---
Anesthesia Consult and Med Hx Date of service: 05/31/16 - Airway Anesthetic Teeth Evaluation: Poor ROM Head & Neck: Adequate Mental/Hyoid Distance: Adequate Mallampati Class: Class II Intubation Access Assessment: Probably Good - Pulmonary Exam CTA: Yes - Cardiac Exam Cardiac Exam: RRR - Pre-Operative Health Status ASA Pre-Surgery Classification: ASA4 Proposed Anesthetic Plan: General - Pulmonary Hx Smoking: No Hx Sleep Apnea: No - Cardiovascular System Hx Hypertension: Yes Hx Cardia Arrhythmia: Yes (atrial fibrillation, on warfarin) Hx Valvular Heart Disease: Yes (moderate MR) Hx Heart Murmur: Yes Hx Peripheral Vascular Disease: Yes (s/p toe amputation 08/31/15, R BKA) - Central Nervous System Hx Neuromuscular Disorder: Yes (diabetic peripheral neuropathy) - Endocrine Hx Renal Disease: Yes (on PD dialysis since 2011,NOW HEMO) Hx End Stage Renal Disease: Yes (dialysis yesterday) Hx Insulin Dependent Diabetes: Yes Hx Thyroid Disease: No - Hematic Hx Anemia: Yes (GIVEN IRON INJECTION)
[2016-05-31] MEDS ORDERED: VERSED IV PRN (08:00)
[2016-05-31] MEDS ORDERED: NACL 0.9% IR ONE (08:30)
[2016-05-31] MEDS ORDERED: BREVIBLOC IV ONE (08:36)
[2016-05-31 08:53] LABS: Basophils % (Manual) 0 % (0.0-1.8); Blastocytes % (Manual) 0 %
[2016-05-31 08:54] LABS: Anisocytosis 3+; Diff Status Complete; Poikilocytosis Few
--- NOTE | 2016-05-31 09:09 | Short Stay Summary ---
Short Stay Documentation Date of service: 05/31/16 Narrative H&P: See H&P - History H&P: obtained from office - Allergies and Medications Current Medications: Allergies No Known Allergies Allergy (Unverified 11/05/12 18:40) Home Medications Medication Instructions Recorded Confirmed Last Taken Type Carvedilol [Coreg] 6.25 mg PO BID #60 tablet 04/29/16 05/23/16 05/31/16 05:00 Rx Cinacalcet [Sensipar] 60 mg PO QDAY #30 tablet 04/29/16 05/23/16 05/30/16 Rx Sevelamer Carbonate [Renvela] 800 mg PO TIDWM #90 tablet 04/29/16 05/23/1605/30 Rx Spironolactone [Aldactone] 25 mg PO QDAY #30 tablet 04/29/16 05/23/16 05/30/16 Rx Warfarin [Coumadin] 2 mg PO DAILY@1700 #20 tablet 04/29/16 05/23/16 05/30/16 Rx cloNIDine [Catapres] 0.1 mg PO BID 05/23/16 05/23/16 05/31/16 05:00 History Active Medications Famotidine (Pepcid) 20 mg PO PREOP NR Stop: 05/31/16 23:59 Last Admin: 05/31/16 07:01 Dose: 20 mg Sodium Chloride (Nacl 0.9% 1000 Ml) 1,000 mls @ 75 mls/hr IV DIRECT MALLY Last Admin: 05/31/16 06:45 Dose: 75 mls/hr Cefazolin Sodium (Ancef/Sterile Water 2 Gm/20 Ml) 2 gm in 20 mls @ 80 mls/hr IV PREOP NR PRN Reason: Protocol Stop: 05/31/16 23:59 Midazolam HCl (Versed) 1 mg IV PREOP PRN PRN Reason: Anxiety Stop: 05/31/16 13:00 Last Admin: 05/31/16 07:49 Dose: 1 mg - Brief post op/procedure progress note Date of procedure: 05/31/16 Pre-op diagnosis: Nonhealing Right and Left Below-Knee Amputations Post-op diagnosis: same Procedure: 1. Excisional Debridement Skin and Soft Tissue of Left Below-Knee Amputation ( Wound Measures 22 x 12 x 1 cm) 2. Wound VAC placement Left BKA 3. Excisional Debridement of Skin and Soft Tissue Right Below-Knee Amputation ( Wound Measures 2 x 2 x 1 cm) Anesthesia: GETA Surgeon: ZEFERINO THORNTON Estimated blood loss: minimal Pathology: list (skin and soft tissue of left BKA as well as a right BKA sent to pathology) Specimen disposition: to lab Condition: stable - Disposition Condition at discharge: Good Disposition: DISCHARGED TO HOME OR SELFCARE Short Stay Discharge Plan Activity: no restrictions Wound: other (wound care per home health nursing) Follow up with: ZEFERINO THORNTON MD [Staff Physician] - 14 Days Prescriptions: HYDROcodone/APAP 7.5-325 [[place] 7.5/325] 1 each PO Q6HR PRN #60 tablet PRN Reason: Pain
--- NOTE | 2016-05-31 09:16 | Operative Report ---
Operative Report Operative Report: Date of Procedure: 05/31/2016 Pre-operative Diagnosis: Nonhealing right and left below-knee Amputations Post-operative Diagnosis: Same Procedure(s): 1. Excisional Debridement Skin and Soft Tissue of Left Below-Knee Amputation ( Wound Measures 22 x 12 x 1 cm) 2. Wound VAC placement Left BKA 3. Excisional Debridement of Skin and Soft Tissue Right Below-Knee Amputation ( Wound Measures 2 x 2 x 1 cm) Surgeon: Anthony Solano M.D. Teacher Home Therapy: None Anesthesia: Gen. endotracheal anesthesia EBL: Minimal Counts: Correct Complications: None Condition: Stable Findings: After debriding necrotic skin and soft tissue all underlying tissue was healthy and the bone was not involved. Specimen: Skin and soft tissue of bilateral amputations sent to pathology. Indication: The patient is a 60-year-old male who was undergone bilateral below-knee amputation site and has nonhealing wounds on both sites. He is currently receiving hyperbaric oxygen and was felt that debridement of the wounds would accelerate healing. He was given the risks, benefits, and alternative procedures and consented to procedure. Description of Procedure: The patient was brought to the operating room and laid in supine position. After general endotracheal anesthesia was achieved as bilateral legs were prepped and draped in normal sterile fashion. A 10 blade was used to excise around the eschar on the left leg and cautery was used to further debride the eschar from the underlying tissue. Cautery was used to achieve hemostasis. Of note after debridement and the eschar the underlying tissue was healthy tissue without any evidence of infection. The bone was not involved in the bone was well covered. After irrigating the wound VAC was placed sterilely. My attention was then turned to the right stump. There was a small eschar on the medial aspect of the leg that was sharply debrided with a 10 blade and irrigated. The underlying tissue was healthy. This was packed with a moist gauze and then covered with a 4 x 4 and tape. The patient tolerated the procedure well. All sponge, needle, and instrument counts were correct. The patient was taken to the recovery area in stable condition.
[2016-05-31] MEDS: DILAUDID IV PRN ×4 (09:25→09:55)
--- NOTE | 2016-05-31 09:27 | Post Anesthesia Evaluation ---
- Post Anesthesia Evaluation Patient Participated: Yes Airway Patent: Yes Stable Respiratory Function: Yes Nausea/Vomiting: No Temp > 96.8F: Yes Pain Manageable: Yes Adequeate Hydration: Yes Anesthesia Complications: No Block Receding Appropriately: Not Applicable Patient on Ventilator: No
[2016-05-31] MEDS ORDERED: NORCO 7.5/325 PO PRN (10:00)
[2016-05-31 12:29] VITALS: BP 134/80
== END 2016-05-31 12:40 | disposition home or self-care (01) ==
LOC: OR 06:11
PROVIDERS: ATTEND Surgery Vascular Surgery
DX: T81.89XA Other complications of procedures, not elsewhere classified, initial encounter (principal); I48.91 Unspecified atrial fibrillation; E11.40 Type 2 diabetes mellitus with diabetic neuropathy, unspecified; E11.22 Type 2 diabetes mellitus with diabetic chronic kidney disease; I12.0 Hypertensive chronic kidney disease with stage 5 chronic kidney disease or end stage renal disease; N18.6 End stage renal disease; E78.5 Hyperlipidemia, unspecified; M19.90 Unspecified osteoarthritis, unspecified site; D64.9 Anemia, unspecified; Z79.01 Long term (current) use of anticoagulants; Z99.2 Dependence on renal dialysis; Z95.820 Peripheral vascular angioplasty status with implants and grafts; Z80.9 Family history of malignant neoplasm, unspecified; Z83.3 Family history of diabetes mellitus; Z72.89 Other problems related to lifestyle; Y83.8 Other surgical procedures as the cause of abnormal reaction of the patient, or of later complication, without mention of misadventure at the time of the procedure
CPT/HCPCS: 11042; 11045; 36415; 80048; 82962; 85007; 85025; 85610; 88304; J0690; J1170; J2250; J2405; J2704; J7030; J1100

== ENCOUNTER 2016-06-03 13:13 | Outpatient (CLI) | payer MEDICARE ==
[2016-06-03] MEDS ORDERED: XYLOCAINE TOPICAL 4% TP ONE ×2 (15:31→17:27)
[2016-06-03] MEDS ORDERED: SANTYL TP ONE ×2 (16:16→17:26)
== END 2016-06-03 13:14 | disposition home or self-care (01) ==
LOC: WOUND 13:13
PROVIDERS: ATTEND Surgery
DX: T87.89 Other complications of amputation stump (principal); E11.622 Type 2 diabetes mellitus with other skin ulcer; L97.821 Non-pressure chronic ulcer of other part of left lower leg limited to breakdown of skin; I70.243 Atherosclerosis of native arteries of left leg with ulceration of ankle; E11.40 Type 2 diabetes mellitus with diabetic neuropathy, unspecified; E11.52 Type 2 diabetes mellitus with diabetic peripheral angiopathy with gangrene; E11.22 Type 2 diabetes mellitus with diabetic chronic kidney disease; I12.0 Hypertensive chronic kidney disease with stage 5 chronic kidney disease or end stage renal disease; N18.6 End stage renal disease; E78.5 Hyperlipidemia, unspecified; M19.90 Unspecified osteoarthritis, unspecified site; Z47.81 Encounter for orthopedic aftercare following surgical amputation; Z87.891 Personal history of nicotine dependence; Y83.5 Amputation of limb(s) as the cause of abnormal reaction of the patient, or of later complication, without mention of misadventure at the time of the procedure
CPT/HCPCS: 82962; 97606; G0277; 99183

== ENCOUNTER 2016-06-05 13:07 | Outpatient (CLI) | payer MEDICARE | END 2016-06-05 13:08 | disposition home or self-care (01) | LOC: WOUND 13:07 | PROVIDERS: ATTEND Surgery | DX: E11.622 Type 2 diabetes mellitus with other skin ulcer (principal); L97.821 Non-pressure chronic ulcer of other part of left lower leg limited to breakdown of skin; I70.243 Atherosclerosis of native arteries of left leg with ulceration of ankle; E11.40 Type 2 diabetes mellitus with diabetic neuropathy, unspecified; E11.52 Type 2 diabetes mellitus with diabetic peripheral angiopathy with gangrene; E11.22 Type 2 diabetes mellitus with diabetic chronic kidney disease; I12.0 Hypertensive chronic kidney disease with stage 5 chronic kidney disease or end stage renal disease; N18.6 End stage renal disease; E78.5 Hyperlipidemia, unspecified; M19.90 Unspecified osteoarthritis, unspecified site; Z47.81 Encounter for orthopedic aftercare following surgical amputation; Z87.891 Personal history of nicotine dependence; Z89.511 Acquired absence of right leg below knee | CPT/HCPCS: 82962; G0277; 99183 ==

== ENCOUNTER 2016-06-07 12:04 | Outpatient (CLI) | payer MEDICARE ==
[2016-06-07] MEDS ORDERED: XYLOCAINE TOPICAL 4% TP ONE ×2 (12:38→12:49)
== END 2016-06-07 12:05 | disposition home or self-care (01) ==
LOC: WOUND 12:04
PROVIDERS: ATTEND Podiatrist
DX: T81.89XD Other complications of procedures, not elsewhere classified, subsequent encounter (principal); E11.622 Type 2 diabetes mellitus with other skin ulcer; L97.823 Non-pressure chronic ulcer of other part of left lower leg with necrosis of muscle; L97.812 Non-pressure chronic ulcer of other part of right lower leg with fat layer exposed; I70.243 Atherosclerosis of native arteries of left leg with ulceration of ankle; E11.52 Type 2 diabetes mellitus with diabetic peripheral angiopathy with gangrene; E11.40 Type 2 diabetes mellitus with diabetic neuropathy, unspecified; E11.22 Type 2 diabetes mellitus with diabetic chronic kidney disease; I12.0 Hypertensive chronic kidney disease with stage 5 chronic kidney disease or end stage renal disease; N18.6 End stage renal disease; E78.5 Hyperlipidemia, unspecified; E11.51 Type 2 diabetes mellitus with diabetic peripheral angiopathy without gangrene; M19.90 Unspecified osteoarthritis, unspecified site; Z47.81 Encounter for orthopedic aftercare following surgical amputation; Z89.512 Acquired absence of left leg below knee; Z89.511 Acquired absence of right leg below knee; Y83.8 Other surgical procedures as the cause of abnormal reaction of the patient, or of later complication, without mention of misadventure at the time of the procedure
CPT/HCPCS: 82962; 97606

== ENCOUNTER 2016-06-10 13:37 | Outpatient (CLI) | payer MEDICARE | END 2016-06-10 13:38 | disposition home or self-care (01) | LOC: WOUND 13:37 | PROVIDERS: ATTEND Internal Medicine | DX: I70.243 Atherosclerosis of native arteries of left leg with ulceration of ankle (principal); E11.622 Type 2 diabetes mellitus with other skin ulcer; L97.823 Non-pressure chronic ulcer of other part of left lower leg with necrosis of muscle; L97.812 Non-pressure chronic ulcer of other part of right lower leg with fat layer exposed; E11.22 Type 2 diabetes mellitus with diabetic chronic kidney disease; I12.0 Hypertensive chronic kidney disease with stage 5 chronic kidney disease or end stage renal disease; N18.6 End stage renal disease; E11.40 Type 2 diabetes mellitus with diabetic neuropathy, unspecified; E11.52 Type 2 diabetes mellitus with diabetic peripheral angiopathy with gangrene; E78.5 Hyperlipidemia, unspecified; Z99.2 Dependence on renal dialysis; Z89.511 Acquired absence of right leg below knee; Z89.512 Acquired absence of left leg below knee; Z87.891 Personal history of nicotine dependence | CPT/HCPCS: 82962; G0277; 99183 ==

== ENCOUNTER 2016-06-12 13:17 | Outpatient (CLI) | payer MEDICARE | END 2016-06-12 13:18 | disposition home or self-care (01) | LOC: WOUND 13:17 | PROVIDERS: ATTEND Surgery | DX: E11.622 Type 2 diabetes mellitus with other skin ulcer (principal); L97.823 Non-pressure chronic ulcer of other part of left lower leg with necrosis of muscle; L97.812 Non-pressure chronic ulcer of other part of right lower leg with fat layer exposed; I70.243 Atherosclerosis of native arteries of left leg with ulceration of ankle; L97.922 Non-pressure chronic ulcer of unspecified part of left lower leg with fat layer exposed; E11.40 Type 2 diabetes mellitus with diabetic neuropathy, unspecified; E11.52 Type 2 diabetes mellitus with diabetic peripheral angiopathy with gangrene; E11.22 Type 2 diabetes mellitus with diabetic chronic kidney disease; I12.0 Hypertensive chronic kidney disease with stage 5 chronic kidney disease or end stage renal disease; N18.6 End stage renal disease; M19.90 Unspecified osteoarthritis, unspecified site; E78.5 Hyperlipidemia, unspecified; Z89.511 Acquired absence of right leg below knee; Z89.512 Acquired absence of left leg below knee; Z87.891 Personal history of nicotine dependence | CPT/HCPCS: 82962; G0277; 99183 ==

== ENCOUNTER 2016-06-14 12:09 | Outpatient (CLI) | payer MEDICARE ==
[2016-06-14] MEDS ORDERED: XYLOCAINE TOPICAL 4% TP ONE ×3 (12:23→14:15)
== END 2016-06-14 12:10 | disposition home or self-care (01) ==
LOC: WOUND 12:09
PROVIDERS: ATTEND Podiatrist
DX: E11.622 Type 2 diabetes mellitus with other skin ulcer (principal); I70.243 Atherosclerosis of native arteries of left leg with ulceration of ankle; L97.823 Non-pressure chronic ulcer of other part of left lower leg with necrosis of muscle; L97.812 Non-pressure chronic ulcer of other part of right lower leg with fat layer exposed; E11.52 Type 2 diabetes mellitus with diabetic peripheral angiopathy with gangrene; E11.40 Type 2 diabetes mellitus with diabetic neuropathy, unspecified; E11.22 Type 2 diabetes mellitus with diabetic chronic kidney disease; I12.0 Hypertensive chronic kidney disease with stage 5 chronic kidney disease or end stage renal disease; N18.6 End stage renal disease; E78.5 Hyperlipidemia, unspecified; M19.90 Unspecified osteoarthritis, unspecified site; Z87.891 Personal history of nicotine dependence; Z89.511 Acquired absence of right leg below knee; Z89.512 Acquired absence of left leg below knee
CPT/HCPCS: 82962; G0463; 99213

== ENCOUNTER 2016-06-17 13:11 | Outpatient (CLI) | payer MEDICARE | END 2016-06-17 13:12 | disposition home or self-care (01) | LOC: WOUND 13:11 | PROVIDERS: ATTEND Internal Medicine | DX: I70.243 Atherosclerosis of native arteries of left leg with ulceration of ankle (principal); E11.622 Type 2 diabetes mellitus with other skin ulcer; L97.823 Non-pressure chronic ulcer of other part of left lower leg with necrosis of muscle; L97.812 Non-pressure chronic ulcer of other part of right lower leg with fat layer exposed; E11.22 Type 2 diabetes mellitus with diabetic chronic kidney disease; I12.0 Hypertensive chronic kidney disease with stage 5 chronic kidney disease or end stage renal disease; N18.6 End stage renal disease; E78.5 Hyperlipidemia, unspecified; E11.51 Type 2 diabetes mellitus with diabetic peripheral angiopathy without gangrene; M19.90 Unspecified osteoarthritis, unspecified site; E11.40 Type 2 diabetes mellitus with diabetic neuropathy, unspecified; Z99.2 Dependence on renal dialysis; Z89.511 Acquired absence of right leg below knee; Z87.891 Personal history of nicotine dependence | CPT/HCPCS: 82962; G0277; 99183 ==

== ENCOUNTER 2016-06-18 12:24 | Outpatient (CLI) | payer MEDICARE | END 2016-06-18 12:25 | disposition home or self-care (01) | LOC: WOUND 12:24 | PROVIDERS: ATTEND Surgery | DX: I70.243 Atherosclerosis of native arteries of left leg with ulceration of ankle (principal); E11.622 Type 2 diabetes mellitus with other skin ulcer; L97.823 Non-pressure chronic ulcer of other part of left lower leg with necrosis of muscle; L97.812 Non-pressure chronic ulcer of other part of right lower leg with fat layer exposed; E11.40 Type 2 diabetes mellitus with diabetic neuropathy, unspecified; E11.22 Type 2 diabetes mellitus with diabetic chronic kidney disease; I12.0 Hypertensive chronic kidney disease with stage 5 chronic kidney disease or end stage renal disease; N18.6 End stage renal disease; Z99.2 Dependence on renal dialysis; E11.51 Type 2 diabetes mellitus with diabetic peripheral angiopathy without gangrene; E78.5 Hyperlipidemia, unspecified; M19.90 Unspecified osteoarthritis, unspecified site; Z89.511 Acquired absence of right leg below knee; Z87.891 Personal history of nicotine dependence | CPT/HCPCS: 82962; G0277; 99183 ==

== ENCOUNTER 2016-06-19 13:11 | Outpatient (CLI) | payer MEDICARE | END 2016-06-19 13:12 | disposition home or self-care (01) | LOC: WOUND 13:11 | PROVIDERS: ATTEND Internal Medicine | DX: I70.243 Atherosclerosis of native arteries of left leg with ulceration of ankle (principal); E11.622 Type 2 diabetes mellitus with other skin ulcer; L97.823 Non-pressure chronic ulcer of other part of left lower leg with necrosis of muscle; L97.812 Non-pressure chronic ulcer of other part of right lower leg with fat layer exposed; E11.40 Type 2 diabetes mellitus with diabetic neuropathy, unspecified; E11.22 Type 2 diabetes mellitus with diabetic chronic kidney disease; I12.0 Hypertensive chronic kidney disease with stage 5 chronic kidney disease or end stage renal disease; N18.6 End stage renal disease; E78.5 Hyperlipidemia, unspecified; M19.90 Unspecified osteoarthritis, unspecified site; Z99.2 Dependence on renal dialysis; Z89.511 Acquired absence of right leg below knee; Z87.891 Personal history of nicotine dependence; Z89.512 Acquired absence of left leg below knee | CPT/HCPCS: 82962; G0277; 99183 ==

== ENCOUNTER 2016-06-20 12:41 | Outpatient (CLI) | payer MEDICARE | END 2016-06-20 12:42 | disposition home or self-care (01) | LOC: WOUND 12:41 | PROVIDERS: ATTEND Internal Medicine | DX: I70.243 Atherosclerosis of native arteries of left leg with ulceration of ankle (principal); E11.622 Type 2 diabetes mellitus with other skin ulcer; L97.823 Non-pressure chronic ulcer of other part of left lower leg with necrosis of muscle; L97.812 Non-pressure chronic ulcer of other part of right lower leg with fat layer exposed; E11.40 Type 2 diabetes mellitus with diabetic neuropathy, unspecified; E11.22 Type 2 diabetes mellitus with diabetic chronic kidney disease; I12.0 Hypertensive chronic kidney disease with stage 5 chronic kidney disease or end stage renal disease; N18.6 End stage renal disease; E78.5 Hyperlipidemia, unspecified; E11.51 Type 2 diabetes mellitus with diabetic peripheral angiopathy without gangrene; M19.90 Unspecified osteoarthritis, unspecified site; Z89.511 Acquired absence of right leg below knee; Z99.2 Dependence on renal dialysis; Z87.891 Personal history of nicotine dependence | CPT/HCPCS: 82962; G0277; 99183 ==

== ENCOUNTER 2016-06-21 11:45 | Outpatient (CLI) | payer MEDICARE | END 2016-06-21 11:46 | disposition home or self-care (01) | LOC: WOUND 11:45 | PROVIDERS: ATTEND Podiatrist | DX: E11.622 Type 2 diabetes mellitus with other skin ulcer (principal); L97.823 Non-pressure chronic ulcer of other part of left lower leg with necrosis of muscle; L97.812 Non-pressure chronic ulcer of other part of right lower leg with fat layer exposed; E11.40 Type 2 diabetes mellitus with diabetic neuropathy, unspecified; I70.243 Atherosclerosis of native arteries of left leg with ulceration of ankle; E11.22 Type 2 diabetes mellitus with diabetic chronic kidney disease; I12.0 Hypertensive chronic kidney disease with stage 5 chronic kidney disease or end stage renal disease; N18.6 End stage renal disease; E78.5 Hyperlipidemia, unspecified; E11.51 Type 2 diabetes mellitus with diabetic peripheral angiopathy without gangrene; M19.90 Unspecified osteoarthritis, unspecified site; Z89.511 Acquired absence of right leg below knee; Z89.512 Acquired absence of left leg below knee; Z87.891 Personal history of nicotine dependence | CPT/HCPCS: 82962; G0277; 97606; 99183 ==

== ENCOUNTER 2016-06-24 13:19 | Outpatient (CLI) | payer MEDICARE | END 2016-06-24 13:20 | disposition home or self-care (01) | LOC: WOUND 13:19 | PROVIDERS: ATTEND Internal Medicine | DX: E11.622 Type 2 diabetes mellitus with other skin ulcer (principal); L97.823 Non-pressure chronic ulcer of other part of left lower leg with necrosis of muscle; L97.812 Non-pressure chronic ulcer of other part of right lower leg with fat layer exposed; L97.822 Non-pressure chronic ulcer of other part of left lower leg with fat layer exposed; E11.52 Type 2 diabetes mellitus with diabetic peripheral angiopathy with gangrene; E11.40 Type 2 diabetes mellitus with diabetic neuropathy, unspecified; I70.243 Atherosclerosis of native arteries of left leg with ulceration of ankle; E11.22 Type 2 diabetes mellitus with diabetic chronic kidney disease; I12.0 Hypertensive chronic kidney disease with stage 5 chronic kidney disease or end stage renal disease; N18.6 End stage renal disease; E78.5 Hyperlipidemia, unspecified; M19.90 Unspecified osteoarthritis, unspecified site; Z89.512 Acquired absence of left leg below knee; Z89.511 Acquired absence of right leg below knee; Z47.81 Encounter for orthopedic aftercare following surgical amputation; Z87.891 Personal history of nicotine dependence | CPT/HCPCS: 82962; G0277; 99183 ==

== ENCOUNTER 2016-06-28 13:14 | Outpatient (CLI) | payer MEDICARE | END 2016-06-28 13:15 | disposition home or self-care (01) | LOC: WOUND 13:14 | PROVIDERS: ATTEND Podiatrist | DX: I70.243 Atherosclerosis of native arteries of left leg with ulceration of ankle (principal); E11.622 Type 2 diabetes mellitus with other skin ulcer; L97.823 Non-pressure chronic ulcer of other part of left lower leg with necrosis of muscle; L97.812 Non-pressure chronic ulcer of other part of right lower leg with fat layer exposed; E11.40 Type 2 diabetes mellitus with diabetic neuropathy, unspecified; E11.52 Type 2 diabetes mellitus with diabetic peripheral angiopathy with gangrene; L97.822 Non-pressure chronic ulcer of other part of left lower leg with fat layer exposed; E11.22 Type 2 diabetes mellitus with diabetic chronic kidney disease; I12.0 Hypertensive chronic kidney disease with stage 5 chronic kidney disease or end stage renal disease; N18.6 End stage renal disease; E78.5 Hyperlipidemia, unspecified; M19.90 Unspecified osteoarthritis, unspecified site; Z99.2 Dependence on renal dialysis; Z89.511 Acquired absence of right leg below knee; Z87.891 Personal history of nicotine dependence | CPT/HCPCS: 82962; G0277; 99183 ==

== ENCOUNTER 2016-07-02 13:21 | Outpatient (CLI) | payer MEDICARE | END 2016-07-02 13:22 | disposition home or self-care (01) | LOC: WOUND 13:21 | PROVIDERS: ATTEND Surgery | DX: I70.243 Atherosclerosis of native arteries of left leg with ulceration of ankle (principal); E11.622 Type 2 diabetes mellitus with other skin ulcer; L97.823 Non-pressure chronic ulcer of other part of left lower leg with necrosis of muscle; L97.812 Non-pressure chronic ulcer of other part of right lower leg with fat layer exposed; E11.52 Type 2 diabetes mellitus with diabetic peripheral angiopathy with gangrene; E11.40 Type 2 diabetes mellitus with diabetic neuropathy, unspecified; E11.22 Type 2 diabetes mellitus with diabetic chronic kidney disease; I12.0 Hypertensive chronic kidney disease with stage 5 chronic kidney disease or end stage renal disease; N18.6 End stage renal disease; E78.5 Hyperlipidemia, unspecified; E11.69 Type 2 diabetes mellitus with other specified complication; M86.8X8 Other osteomyelitis, other site; Z99.2 Dependence on renal dialysis; Z89.511 Acquired absence of right leg below knee; Z87.891 Personal history of nicotine dependence | CPT/HCPCS: 82962; G0277; 99183 ==

== ENCOUNTER 2019-01-01 09:18 | Outpatient (CLI) | payer MEDICARE ==
--- NOTE | 2019-01-01 11:04 | XRay Report ---
CHEST 2 VIEWS INDICATION / CLINICAL INFORMATION: DYSPNEA. COMPARISON: 02/27/2016 FINDINGS: SUPPORT DEVICES: Vas-Cath is seen on the right unchanged. HEART / MEDIASTINUM: No significant abnormality. LUNGS / PLEURA: No significant pulmonary or pleural abnormality. No pneumothorax. ADDITIONAL FINDINGS: No significant additional findings. IMPRESSION: 1. No acute findings. Signer Name: Dany Lara MD Signed: 01/01/2019 11:00 AM Workstation Name: [id number]
== END 2019-01-01 09:19 | disposition home or self-care (01) ==
LOC: XRAY 09:18
PROVIDERS: ATTEND Internal Medicine Nephrology
DX: R06.00 Dyspnea, unspecified (principal); I12.0 Hypertensive chronic kidney disease with stage 5 chronic kidney disease or end stage renal disease; E11.22 Type 2 diabetes mellitus with diabetic chronic kidney disease; N18.6 End stage renal disease; I48.91 Unspecified atrial fibrillation
CPT/HCPCS: 71046